=== PATIENT | female | born 1945 | race Caucasian/White ===

== ENCOUNTER → 2016-04-30 | Outpatient (CLI) | payer BC ==
[~2016-04-30] MED LIST: AMOX875T PO; AMX875 PO; ASCA500 PO; ASCO100061 PO; CALC600T9 PO; CHOL100010 PO; CYAN10005 PO; DPRSCR15 TD; ESTR0.3T PO; LEVO-14 PO; LEVO88TA PO; MEDR2.5T PO; MTR500 PO; OXYC-57 PO; PRED10TA PO; RANI300T2 PO; SPIR50TA2 PO; [UNRECOGNIZED DRUG - CODE] TD
--- NOTE | 2016-04-30 15:57 | DIAGNOSTIC IMAGING REPORT ---
RIGHT ANKLE MIN 3 VIEWS ROUTINE CLINICAL HISTORY: Right ankle pain status post trauma COMPARISON: None. DISCUSSION: No acute fractures or dislocations are visualized. 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 There is lateral soft tissue swelling. IMPRESSION: Degenerative changes. Soft tissue swelling. No acute fractures.. Electronically signed by: Gelacio Teresa M.D. 04/30/2016 3:56 PM Dictated Date/Time: 04/30/2016 3:55 PM
--- NOTE | 2016-04-30 15:58 | DIAGNOSTIC IMAGING REPORT ---
RIGHT FOOT MIN 3 VIEWS ROUTINE CLINICAL HISTORY: M79.661,M25.571,M79.671,Z85.3 Right trauma. Pain. COMPARISON: None. DISCUSSION: Oblique cortical fracture base proximal phalanx right fourth toe. No evidence of dislocation. Moderate soft tissue edema. IMPRESSION: Oblique cortical fracture base proximal phalanx fourth toe Electronically signed by: Philip Jaramillo M.D. 04/30/2016 3:57 PM Dictated Date/Time: 04/30/2016 3:55 PM
--- NOTE | 2016-04-30 16:21 | DIAGNOSTIC IMAGING REPORT ---
RIGHT LOWER EXTREMITY VENOUS DOPPLER HISTORY: Right leg swelling. COMPARISON STUDY: None. FINDINGS: There is normal compressibility, flow, and augmentation within the right lower extremity deep venous system. Right leg subcutaneous edema. IMPRESSION: No DVT within the right lower extremity Electronically signed by: Sonny Mann M.D. 04/30/2016 4:19 PM Dictated Date/Time: 04/30/2016 4:19 PM
== END | disposition home or self-care (01) ==
LOC: C.ULTR 14:47
PROVIDERS: ATTEND Family Medicine
DX: M79.661 Pain in right lower leg (principal); M25.571 Pain in right ankle and joints of right foot; M79.671 Pain in right foot; Z85.3 Personal history of malignant neoplasm of breast; M79.89 Other specified soft tissue disorders; S92.514A Nondisplaced fracture of proximal phalanx of right lesser toe(s), initial encounter for closed fracture; X58.XXXA Exposure to other specified factors, initial encounter

== ENCOUNTER → 2016-05-24 | Outpatient (CLI) | payer BC | END | disposition home or self-care (01) | LOC: C.RDSM 09:21 | PROVIDERS: ATTEND Family Medicine | DX: S92.911A Unspecified fracture of right toe(s), initial encounter for closed fracture (principal); X58.XXXA Exposure to other specified factors, initial encounter ==

== ENCOUNTER → 2016-05-30 | Outpatient (CLI) | payer BC ==
[2016-05-30 16:59] LABS: URINE APPEARANCE CLEAR (CLEAR); URINE BILIRUBIN NEG (NEG); URINE COLOR YELLOW; URINE NITRITE NEG (NEG); URINE SPECIFIC GRAVITY >= 1.030 (1.000-1.030); UROBILINOGEN NEG (NEG)
[2016-05-30 17:04] LABS: REVIEW REQ? NO
[2016-05-30 21:04] LABS: MANUAL MICROSCOPIC REQUIRED? NO
== END | disposition home or self-care (01) ==
LOC: C.LAB1850 15:45
PROVIDERS: ATTEND Internal Medicine
DX: R35.0 Frequency of micturition (principal)

== ENCOUNTER → 2016-06-13 | Outpatient (CLI) | payer BC ==
[~2016-06-13] MED LIST changes: +HYDR-5688 PO; +OMAL150S INJ
== END | disposition home or self-care (01) ==
LOC: C.RDSM 12:54
PROVIDERS: ATTEND Family Medicine
DX: S92.901A Unspecified fracture of right foot, initial encounter for closed fracture (principal); X58.XXXA Exposure to other specified factors, initial encounter

== ENCOUNTER → 2016-07-04 | Outpatient (CLI) | payer BC | END | disposition home or self-care (01) | LOC: C.RDSM 13:49 | PROVIDERS: ATTEND Family Medicine | DX: S92.909A Unspecified fracture of unspecified foot, initial encounter for closed fracture (principal); X58.XXXA Exposure to other specified factors, initial encounter ==

== ENCOUNTER → 2016-07-13 | Outpatient (CLI) | payer BC | END | disposition home or self-care (01) | LOC: C.LAB1850 11:56 | PROVIDERS: ATTEND Internal Medicine | DX: Z00.00 Encounter for general adult medical examination without abnormal findings (principal); Z11.59 Encounter for screening for other viral diseases; E03.9 Hypothyroidism, unspecified ==

== ENCOUNTER → 2016-07-25 | Outpatient (CLI) | payer BC ==
--- NOTE | 2016-07-25 16:44 | MAMMOGRAPHY REPORT ---
BILATERAL DIGITAL SCREENING MAMMOGRAM TOMOSYNTHESIS WITH CAD: 07/25/2016 CLINICAL HISTORY: Asymptomatic. Personal history of breast cancer. TECHNIQUE: Breast tomosynthesis in addition to standard 2D mammography was performed. Current study was also evaluated with a Computer Aided Detection (CAD) system. COMPARISON: Comparison is made to exams dated: 07/25/2015 mammogram, 07/21/2014 mammogram, 07/20/2013 mammogram, 07/18/2012 mammogram, 07/16/2011 mammogram, and 07/13/2010 mammogram - [facility] enter. BREAST COMPOSITION: There are scattered areas of fibroglandular density in both breasts. FINDINGS: There is expected architectural distortion and associated surgical clips in the 3:00 poste rior left breast, at the site of prior lumpectomy. An asymmetry in the upper outer left breast ante rior to the surgical site appears similar on all available prior mammograms dating back to 8, therefore likely benign. There are benign-appearing rodlike calcifications within the left breas t and a stable intramammary lymph node in the right upper outer quadrant. No new suspicious mass, a rchitectural distortion or cluster of microcalcifications is seen. IMPRESSION: ACR BI-RADS CATEGORY 1: NEGATIVE There is no mammographic evidence of malignancy. A 1 year screening mammogram is recommended. The p atient will receive written notification of the results. Approximately 10% of breast cancers are not detected with mammography. A negative mammographic repor t should not delay biopsy if a clinically suggestive mass is present. Kelsi Newman M.D. ay/:07/25/2016 15:07:57 Compensation Agent: Vidhya DIAZ(R)(Mariah), [facility] letter sent: Normal 1/2 BI-RADS Code: ACR BI-RADS Category 1: Negative
== END | disposition home or self-care (01) ==
LOC: C.MAMM 13:26
PROVIDERS: ATTEND Obstetrics & Gynecology
DX: Z12.31 Encounter for screening mammogram for malignant neoplasm of breast (principal); Z85.3 Personal history of malignant neoplasm of breast

== ENCOUNTER → 2016-07-30 | Outpatient (CLI) | payer BC | END | disposition home or self-care (01) | LOC: C.RDSM 15:01 | PROVIDERS: ATTEND Family Medicine | DX: T14.8 Other injury of unspecified body region (principal); X58.XXXA Exposure to other specified factors, initial encounter ==

== ENCOUNTER → 2016-08-21 | Outpatient (CLI) | payer BC ==
[2016-08-21 16:45] LABS: MANUAL MICROSCOPIC REQUIRED? NO; REVIEW REQ? YES; URINE APPEARANCE CLEAR (CLEAR); URINE BILIRUBIN NEG (NEG); URINE COLOR DK YELLOW; URINE EPITHELIAL CELL AUTO >30 /lpf (0-5); URINE NITRITE NEG (NEG); URINE PH 7.5 (4.5-7.5); URINE SPECIFIC GRAVITY 1.032 (1.000-1.030); UROBILINOGEN NEG (NEG)
[2016-08-21 16:47] LABS: SULFASALICYLIC ACID POS (NEG)
== END ==
LOC: C.LAB1850 14:15
PROVIDERS: ATTEND Internal Medicine
DX: N39.0 Urinary tract infection, site not specified (principal)

== ENCOUNTER → 2016-09-07 | Outpatient (CLI) | payer BC ==
[~2016-09-07] MED LIST changes: -HYDR-5688 PO; -OMAL150S INJ
[2016-09-07 14:27] LABS: HEMATOCRIT 40.7 % (37-47); MEAN CELL VOLUME 100.2 fL (80-100); MEAN CORPUSCULAR HEMOGLOBIN 33.5 pg (25-34); MEAN CORPUSCULAR HGB CONC 33.4 g/dl (32-36); MEAN PLATELET VOLUME 9.5 fL (7.4-10.4); PLATELET COUNT 331 K/uL (130-400); RED BLOOD COUNT 4.06 M/uL (4.2-5.4); WHITE BLOOD COUNT 6.38 K/uL (4.8-10.8)
[2016-09-07 14:52] LABS: ALT/SGPT 22 U/L (12-78); BLOOD UREA NITROGEN 13 mg/dl (7-18); BUN/CREATININE RATIO 13.2 (10-20); CALCIUM 9.4 mg/dl (8.5-10.1); CARBON DIOXIDE 29 mmol/L (21-32); CHLORIDE 107 mmol/L (98-107); CREATININE 0.96 mg/dl (0.60-1.20); GLUCOSE 101 mg/dl (70-99); POTASSIUM 3.8 mmol/L (3.5-5.1); SODIUM 141 mmol/L (136-145)
[2016-09-07 14:54] LABS: ALKALINE PHOSPHATASE 64 U/L (45-117); AST/SGOT 16 U/L (15-37)
== END | disposition home or self-care (01) ==
LOC: C.LABSPEC 13:51
PROVIDERS: ATTEND Internal Medicine
DX: K57.92 Diverticulitis of intestine, part unspecified, without perforation or abscess without bleeding (principal); Z79.2 Long term (current) use of antibiotics

== ENCOUNTER → 2016-09-12 | Outpatient (CLI) | payer BC ==
[~2016-09-12] MED LIST changes: +OPTIRAY 320 IV PRN
--- NOTE | 2016-09-12 13:36 | DIAGNOSTIC IMAGING REPORT ---
CT SCAN OF THE ABDOMEN AND PELVIS WITH IV CONTRAST CLINICAL HISTORY: Generalized abdominal pain. COMPARISON STUDY: Abdominal CT dated 02/25/2014. TECHNIQUE: Following the IV administration of 91 cc of Optiray 320, CT scan of the abdomen and pelvis is performed from the lung bases to the proximal femora. Images are reviewed in the axial, sagittal, and coronal planes. IV contrast was administered without complication. Automated dose control exposure was utilized. CT DOSE: 407.57 mGy.cm FINDINGS: Lung bases: The heart is normal in size and without pericardial effusion. The lung bases are clear. Liver: The contrast-enhanced liver is normal in size, contour, and attenuation. There is no intrahepatic biliary ductal dilatation. The hepatic veins and portal veins are patent. Gallbladder: Unremarkable. Spleen: Normal in size and attenuation. Pancreas: Unremarkable. Adrenal glands: Unremarkable. Kidneys: The contrast enhanced kidneys are normal in size and without hydronephrosis. The kidneys enhance symmetrically. Abdominal vasculature: The abdominal aorta is normal in course and caliber noting moderate to advanced atherosclerotic calcification. Bowel: No bowel obstruction is identified. There is moderate colonic diverticulosis. There is mild wall thickening with faint pericolonic stranding and trace fluid seen involving the sigmoid colon in the mid pelvis. This likely represents mild acute diverticulitis. No evidence of abscess is seen. The appendix is well-visualized and normal. Peritoneum: There is no intraperitoneal free air or abdominal ascites. Lymphadenopathy: None. Pelvic viscera: The bladder, uterus, and adnexa are normal as visualized. Skeletal structures: The skeletal structures are osteopenic. Mild to moderate lumbosacral spondylosis is observed. No lytic or blastic lesions are seen. IMPRESSION: There is moderate colonic diverticulosis with evidence of mild acute sigmoid diverticulitis. No intraperitoneal free air is identified and there is no evidence of diverticular abscess. Electronically signed by: Mariusz Kaufman M.D. 09/12/2016 1:35 PM Dictated Date/Time: 09/12/2016 1:27 PM
== END | disposition home or self-care (01) ==
LOC: C.CTS 12:12
PROVIDERS: ATTEND Internal Medicine
DX: K57.32 Diverticulitis of large intestine without perforation or abscess without bleeding (principal)

== ENCOUNTER → 2016-09-17 | Outpatient (CLI) | payer BC ==
[~2016-09-17] MED LIST changes: -OPTIRAY 320 IV PRN
[2016-09-17 14:48] LABS: HEMATOCRIT 43.7 % (37-47); MEAN CELL VOLUME 100.9 fL (80-100); MEAN CORPUSCULAR HEMOGLOBIN 33.5 pg (25-34); MEAN CORPUSCULAR HGB CONC 33.2 g/dl (32-36); MEAN PLATELET VOLUME 9.6 fL (7.4-10.4); PLATELET COUNT 248 K/uL (130-400); RED BLOOD COUNT 4.33 M/uL (4.2-5.4); WHITE BLOOD COUNT 6.51 K/uL (4.8-10.8)
[2016-09-17 15:16] LABS: ALT/SGPT 20 U/L (12-78); BLOOD UREA NITROGEN 15 mg/dl (7-18); BUN/CREATININE RATIO 15.4 (10-20); CALCIUM 9.3 mg/dl (8.5-10.1); CARBON DIOXIDE 27 mmol/L (21-32); CHLORIDE 107 mmol/L (98-107); CREATININE 0.94 mg/dl (0.60-1.20); GLUCOSE 131 mg/dl (70-99); POTASSIUM 3.9 mmol/L (3.5-5.1); SODIUM 143 mmol/L (136-145)
[2016-09-17 15:18] LABS: ALB/GLOB RATIO 1.1 (0.9-2); ALKALINE PHOSPHATASE 83 U/L (45-117); AST/SGOT 16 U/L (15-37)
== END | disposition home or self-care (01) ==
LOC: C.LAB1850 13:37
PROVIDERS: ATTEND Internal Medicine
DX: K57.92 Diverticulitis of intestine, part unspecified, without perforation or abscess without bleeding (principal)

== ENCOUNTER → 2016-09-24 | Outpatient (CLI) | payer BC ==
[2016-09-24 17:17] LABS: URINE APPEARANCE CLEAR (CLEAR); URINE BILIRUBIN NEG (NEG); URINE COLOR DK YELLOW; URINE EPITHELIAL CELL AUTO >30 /lpf (0-5); URINE NITRITE NEG (NEG); URINE SPECIFIC GRAVITY 1.035 (1.000-1.030); UROBILINOGEN NEG (NEG)
[2016-09-24 17:30] LABS: MANUAL MICROSCOPIC REQUIRED? NO; REVIEW REQ? YES
[2016-09-24 18:24] LABS: URINE MUCUS PRESENT (NONE PRSENT)
== END | disposition home or self-care (01) ==
LOC: C.LAB1850 15:12
PROVIDERS: ATTEND Internal Medicine
DX: R30.9 Painful micturition, unspecified (principal)

== ENCOUNTER 2016-11-13 10:25 | Inpatient (IN) | payer BC, OTHER ==
[~2016-11-13] VITALS: Ht 170.2 cm; Wt 73.3 kg
[~2016-11-13 10:25] MED LIST changes: -AMOX875T PO; -AMX875 PO; -ASCO100061 PO; -CHOL100010 PO; -DPRSCR15 TD; -ESTR0.3T PO; -LEVO-14 PO; -LEVO88TA PO; -MEDR2.5T PO; -MTR500 PO; -OXYC-57 PO; -PRED10TA PO; -RANI300T2 PO; -SPIR50TA2 PO; -[UNRECOGNIZED DRUG - CODE] TD
[2016-11-13 10:27] VITALS: Ht 170.2 cm; Wt 73.3 kg
[2016-11-13] MEDS ORDERED: AMX875 PO (10:50)
[2016-11-13 11:04] LABS: BASO % 0.2 %; BASO ABS # 0.02 K/uL (0-0.2); COMPLETE YES; EOS % 0.4 %; HEMATOCRIT 44.9 % (37-47); IG% 0.2 %; LYMPH % 7.7 %; LYMPH ABS # 0.95 K/uL (1.2-3.4); MEAN CELL VOLUME 99.8 fL (80-100); MEAN CORPUSCULAR HEMOGLOBIN 33.1 pg (25-34); MEAN CORPUSCULAR HGB CONC 33.2 g/dl (32-36); MEAN PLATELET VOLUME 9.8 fL (7.4-10.4); MONO % 5.7 %; NEUT % 85.8 %; PLATELET COUNT 187 K/uL (130-400); WHITE BLOOD COUNT 12.26 K/uL (4.8-10.8)
[2016-11-13] MEDS ORDERED: AMOX875T PO (11:06)
[2016-11-13] MEDS ORDERED: LEVO88TA PO (11:06)
[2016-11-13] MEDS ORDERED: MoRPHine SULFATE 10 MG/ML CARP/VIAL IV STA (11:15)
[2016-11-13] MEDS ORDERED: SODIUM CHLORIDE 0.9% 500ML 500 ML IV STA (11:15)
[2016-11-13] MEDS ORDERED: ONDANSETRON INJ 2 MG/ML 2 ML VIAL IV STA (11:15)
[2016-11-13 11:16] LABS: BUN/CREATININE RATIO 13.4 (10-20); CALCIUM 8.9 mg/dl (8.5-10.1); CREATININE 0.92 mg/dl (0.60-1.20); POTASSIUM 3.5 mmol/L (3.5-5.1)
[2016-11-13] MEDS ORDERED: OPTIRAY 320 IV PRN (11:30)
[2016-11-13] MEDS ORDERED: MoRPHine SULFATE 2 MG/ML CARP ONE (11:38)
[2016-11-13] MEDS ORDERED: MoRPHine SULFATE 4 MG/ML 1 ML CARP\\VIAL ONE (11:38)
[2016-11-13] MEDS ORDERED: PIPERACILLIN/TAZOBACTAM 4.5 GM/100ML D5W IV STA (12:53)
--- NOTE | 2016-11-13 13:01 | DIAGNOSTIC IMAGING REPORT ---
ABDOMEN AND PELVIS CT WITH IV CONTRAST CT DOSE: 535.17 mGycm HISTORY: lower abd pain w/ hxt divertic and abscess TECHNIQUE: Multiaxial CT images of the abdomen and pelvis were performed following the use of intravenous contrast. A dose lowering technique was utilized adhering to the principles of ALARA. COMPARISON STUDY: Abdomen and pelvis CT 09/12/2016. FINDINGS: Mild thickening of the sigmoid colon with surrounding pericolonic inflammatory change and a punctate focus of extraluminal gas best seen on image 301. Findings are consistent with acute diverticulitis with a tiny focus of microperforation. No loculated fluid collections at this time to suggest an abscess. A segment of thickened small bowel seen within the deep pelvis inferior to the diverticulitis. This is likely reactive. This results in focal areas of narrowing and mild dilatation of the proximal small bowel. This may represent a low-grade partial small bowel obstruction. Mild thickening and fat stranding within the bladder wall. The uterus is unremarkable. Fluid-filled proximal colon. Normal appendix. Stable 2.4 cm hypodense presacral focus. This is of doubtful clinical significance. There are 2 nodular densities at the base of the right lower lobe with the largest measuring 6 mm best in image 19. These remain stable. The liver, gallbladder, kidneys, spleen, and adrenal glands are unremarkable. The pancreas enhances normally. IMPRESSION: 1. Progressive inflammatory change within the pelvis surrounding the sigmoid colon consistent with acute diverticulitis. There is a punctate focus of extraluminal gas consistent with microperforation. No evidence for abscess at this time. 2. Short segment of thickened small bowel within the deep pelvis inferior to the diverticulitis. This is likely reactive. This results in mild narrowing of the bowel and a probable low-grade partial small bowel obstruction. 3. Mild thickening and inflammatory change within the bladder. Recommend correlation with urinalysis to exclude a cystitis. This may also be reactive. Electronically signed by: Sonny Mann M.D. 11/13/2016 12:22 PM Dictated Date/Time: 11/13/2016 12:07 PM
--- NOTE | 2016-11-13 13:49 | Surgery Consultation ---
Consultation Date of Consultation: Nov 13, 2016. Attending Physician: Reason for Consultation: diverticulitis History of Present Illness 71 y/o with what is now her 3rd bout of diverticulitis in [address] Dorantes previously and they opted against elective surgery. she began with abdominal pain last night which worsened into this morning. Family History Hypertension Kidney disease Social History Smoking Status: Former Smoker Drug Use: none Marital Status: Housing Status: lives with family Occupation Status: retired Allergies Coded Allergies: NO KNOWN DRUG ALLERGIES (Verified Allergy, Unknown, ., 10/11/16) Nickel (Verified Allergy, Unknown, CAME UP ON ALLERGY TEST, 10/11/16) Home Medications Scheduled Amoxicillin & Pot Clavulanate (Augmentin 875-125 mg), 1 TAB PO Q12 Ascorbic Acid (Vitamin C), 1 TAB PO QAM Calcium Carbonate-Vitamin D (Calcium + D), 1 TAB PO QAM Cyanocobalamin (Vitamin B-12), 1,000 MCG PO QAM Levothyroxine Sodium (Synthroid), 88 MCG PO DAILY Current Inpatient Medications Current Inpatient Medications Medications (Trade) Dose Ordered Sig/Ric Route Start Time Stop Time Status Last Admin Dose Admin Ioversol (Optiray 320) 100 ml UD PRN IV 11/13/16 11:30 11/17/16 11:29 Review of Systems Abdomen: + pain Physical Exam Date Time Temp Pulse Resp B/P (MAP) Pulse Ox O2 Delivery O2 Flow Rate FiO2 11/13/16 12:34 88 11/13/16 12:22 89 20 139/85 97 Room Air 11/13/16 10:27 36.5 97 16 147/93 92 Room Air General Appearance: no apparent distress Head: normocephalic, atraumatic Eyes: normal inspection, EOMI, sclerae normal ENT: hearing grossly normal Neck: supple, no JVD Respiratory/Chest: no respiratory distress, no accessory muscle use Abdomen/GI: soft, + pertinent finding (+suprapubic > LLQ ttp. +guarding. ) Neurologic/Psych: alert, oriented x 3 Skin: normal color, warm/dry Laboratory Results Last 24 Hours Test 11/13/16 10:50 White Blood Count 12.26 K/uL Red Blood Count 4.50 M/uL Hemoglobin 14.9 g/dL Hematocrit 44.9 % Mean Corpuscular Volume 99.8 fL Mean Corpuscular Hemoglobin 33.1 pg Mean Corpuscular Hemoglobin Concent 33.2 g/dl Platelet Count 187 K/uL Mean Platelet Volume 9.8 fL Neutrophils (%) (Auto) 85.8 % Lymphocytes (%) (Auto) 7.7 % Monocytes (%) (Auto) 5.7 % Eosinophils (%) (Auto) 0.4 % Basophils (%) (Auto) 0.2 % Neutrophils # (Auto) 10.51 K/uL Lymphocytes # (Auto) 0.95 K/uL Monocytes # (Auto) 0.70 K/uL Eosinophils # (Auto) 0.05 K/uL Basophils # (Auto) 0.02 K/uL RDW Standard Deviation 47.3 fL RDW Coefficient of Variation 13.0 % Immature Granulocyte % (Auto) 0.2 % Immature Granulocyte # (Auto) 0.03 K/uL Sodium Level 138 mmol/L Potassium Level 3.5 mmol/L Chloride Level 105 mmol/L Carbon Dioxide Level 28 mmol/L Anion Gap 5.0 mmol/L Blood Urea Nitrogen 12 mg/dl Creatinine 0.92 mg/dl Est Creatinine Clear Calc Drug Dose 54.6 ml/min Estimated GFR () 72.6 Estimated GFR (Non- 62.6 BUN/Creatinine Ratio 13.4 Random Glucose 114 mg/dl Calcium Level 8.9 mg/dl Total Bilirubin 1.2 mg/dl Direct Bilirubin 0.3 mg/dl Aspartate Amino Transf (AST/SGOT) 8 U/L Alanine Aminotransferase (ALT/SGPT) 15 U/L Alkaline Phosphatase 68 U/L Total Protein 7.0 gm/dl Albumin 3.2 gm/dl Lipase 60 U/L Assessment & Plan acute diverticulitis with microperforation . recurrent. will need admitted. NPO/ice chips/IV antibiotics was schedule for colonoscopy in 1-[address] Nolasco. will need to delay that may want to reconsider elective sigmoid colon resection once she is better will follow along closely for improvement
[2016-11-13] MEDS ORDERED: ALUMINUM/MAGNESIUM/SIMETH (MAALOX MAX) 30 ML UDC PO PRN (14:00)
[2016-11-13] MEDS ORDERED: MAGNESIUM HYDROXIDE SUSP 30 ML UDC PO PRN (14:00)
[2016-11-13] MEDS ORDERED: ONDANSETRON INJ 2 MG/ML 2 ML VIAL IV PRN (14:00)
--- NOTE | 2016-11-13 14:14 | History and Physical ---
History & Physical Date & Time of Service: Nov 13, 2016 at 13:59 Chief Complaint: Severe Abd. Pain-Diverticulitis Primary Care Physician: Zak Darnell M.D. History of Present Illness Source: patient, family ( at bedside), clinic records, hospital records Patient is a pleasant 71 y/o female, with PMHx of hypothyroidism, mild cognitive impairment, L breast cancer s/p lumpectomy, and h/o diverticular disease w/ acute diverticulitis x2, who presented to the ED because of abdominal pain x1 day. Mid/LLQ abdominal pain started yesterday afternoon around 1400. She had one episode of nausea and vomiting last evening. She has not eating anything today. This is her third episode of diverticulitis. She has discussed colectomy with [facility] surgeon in September, but elected for medical management w/ high fiber diet. She was given Amoxicillin to take at first sign of abdominal pain- she took two yesterday and one today. She called surgeon today and was instructed to come to ED. She has a colonoscopy scheduled for w/ Dr. Nolasco. Patient denies any fever, chills, sweats, lightheadedness, dizziness, vision changes, CP, palpitations, edema, SOB, wheezing, cough, diarrhea, urinary symptoms, melena, numbness/tingling, weakness , muscle/joint pain, anxiety/depression, active bleeding, or new skin discoloration/changes. Past Medical/Surgical History Medical Problems: L sided breast cancer s/p lumpectomy hypothyroidism mild cognitive impairment diverticular disease w/ acute diverticulitis Surgical History: s/p breast lumpectomy bilateral cataract surgery Family History Hypertension Kidney disease Social History Smoking Status: Former Smoker Alcohol Use: occasionally Drug Use: none Marital Status: Housing status: lives with family Occupational Status: retired Immunizations History of Influenza Vaccine: Yes Influenza Vaccine Date: Jan 26, 2005 History of Tetanus Vaccine?: Unknown History of Pneumococcal: No History of Hepatitis B Vaccine: Unknown Multi-Drug Resistant Organisms History of MDRO: No Allergies Coded Allergies: NO KNOWN DRUG ALLERGIES (Verified Allergy, Unknown, ., 10/11/16) Nickel (Verified Allergy, Unknown, CAME UP ON ALLERGY TEST, 10/11/16) Home Medications Scheduled Amoxicillin & Pot Clavulanate (Augmentin 875-125 mg), 1 TAB PO Q12 Ascorbic Acid (Vitamin C), 1 TAB PO QAM Calcium Carbonate-Vitamin D (Calcium + D), 1 TAB PO QAM Cyanocobalamin (Vitamin B-12), 1,000 MCG PO QAM Levothyroxine Sodium (Synthroid), 88 MCG PO DAILY Physical Exam Vital Signs Date Time Temp Pulse Resp B/P (MAP) Pulse Ox O2 Delivery O2 Flow Rate FiO2 11/13/16 13:45 91 124/80 96 Room Air 11/13/16 12:34 88 11/13/16 12:22 89 20 139/85 97 Room Air 11/13/16 10:27 36.5 97 16 147/93 92 Room Air General Appearance: no apparent distress Head: normocephalic, atraumatic Eyes: normal inspection, PERRL ENT: hearing grossly normal Neck: supple Respiratory/Chest: lungs clear, no respiratory distress, no accessory muscle use Cardiovascular: regular rate, rhythm Abdomen/GI: normal bowel sounds, soft, + tenderness (ttp of LLQ/mid-epigastric region ) Back: normal inspection Extremities/Musculoskelatal: no calf tenderness, + swelling (+non-pitting edema of bilateral lower extremities, R>L) Neurologic/Psych: alert, normal mood/affect, oriented x 3 Skin: normal color, warm/dry, no rash Diagnostics Laboratory Results Results Past 24 Hours Test 11/13/16 10:50 11/13/16 10:57 Range/Units White Blood Count 12.26 4.8-10.8 K/uL Red Blood Count 4.50 4.2-5.4 M/uL Hemoglobin 14.9 12.0-16.0 g/dL Hematocrit 44.9 37-47 % Mean Corpuscular Volume 99.8 80-100 fL Mean Corpuscular Hemoglobin 33.1 25-34 pg Mean Corpuscular Hemoglobin Concent 33.2 32-36 g/dl Platelet Count 187 130-400 K/uL Mean Platelet Volume 9.8 7.4-10.4 fL Neutrophils (%) (Auto) 85.8 % Lymphocytes (%) (Auto) 7.7 % Monocytes (%) (Auto) 5.7 % Eosinophils (%) (Auto) 0.4 % Basophils (%) (Auto) 0.2 % Neutrophils # (Auto) 10.51 1.4-6.5 K/uL Lymphocytes # (Auto) 0.95 1.2-3.4 K/uL Monocytes # (Auto) 0.70 0.11-0.59 K/uL Eosinophils # (Auto) 0.05 0-0.5 K/uL Basophils # (Auto) 0.02 0-0.2 K/uL RDW Standard Deviation 47.3 36.4-46.3 fL RDW Coefficient of Variation 13.0 11.5-14.5 % Immature Granulocyte % (Auto) 0.2 % Immature Granulocyte # (Auto) 0.03 0.00-0.02 K/uL Sodium Level 138 136-145 mmol/L Potassium Level 3.5 3.5-5.1 mmol/L Chloride Level 105 98-107 mmol/L Carbon Dioxide Level 28 21-32 mmol/L Anion Gap 5.0 3-11 mmol/L Blood Urea Nitrogen 12 7-18 mg/dl Creatinine 0.92 0.60-1.20 mg/dl Est Creatinine Clear Calc Drug Dose 54.6 ml/min Estimated GFR () 72.6 Estimated GFR (Non- 62.6 BUN/Creatinine Ratio 13.4 10-20 Random Glucose 114 70-99 mg/dl Calcium Level 8.9 8.5-10.1 mg/dl Total Bilirubin 1.2 0.2-1 mg/dl Direct Bilirubin 0.3 0-0.2 mg/dl Aspartate Amino Transf (AST/SGOT) 8 15-37 U/L Alanine Aminotransferase (ALT/SGPT) 15 12-78 U/L Alkaline Phosphatase 68 45-117 U/L Total Protein 7.0 6.4-8.2 gm/dl Albumin 3.2 3.4-5.0 gm/dl Lipase 60 73-393 U/L Diagnostic Radiology ABDOMEN AND PELVIS CT WITH IV CONTRAST CT DOSE: 535.17 mGycm HISTORY: lower abd pain w/ hxt divertic and abscess TECHNIQUE: Multiaxial CT images of the abdomen and pelvis were performed following the use of intravenous contrast. A dose lowering technique was utilized adhering to the principles of ALARA. COMPARISON STUDY: Abdomen and pelvis CT 09/12/2016. FINDINGS: Mild thickening of the sigmoid colon with surrounding pericolonic inflammatory change and a punctate focus of extraluminal gas best seen on image 301. Findings are consistent with acute diverticulitis with a tiny focus of microperforation. No loculated fluid collections at this time to suggest an abscess. A segment of thickened small bowel seen within the deep pelvis inferior to the diverticulitis. This is likely reactive. This results in focal areas of narrowing and mild dilatation of the proximal small bowel. This may represent a low-grade partial small bowel obstruction. Mild thickening and fat stranding within the bladder wall. The uterus is unremarkable. Fluid-filled proximal colon. Normal appendix. Stable 2.4 cm hypodense presacral focus. This is of doubtful clinical significance. There are 2 nodular densities at the base of the right lower lobe with the largest measuring 6 mm best in image 19. These remain stable. The liver, gallbladder, kidneys, spleen, and adrenal glands are unremarkable. The pancreas enhances normally. IMPRESSION: 1. Progressive inflammatory change within the pelvis surrounding the sigmoid colon consistent with acute diverticulitis. There is a punctate focus of extraluminal gas consistent with microperforation. No evidence for abscess at this time. 2. Short segment of thickened small bowel within the deep pelvis inferior to the diverticulitis. This is likely reactive. This results in mild narrowing of the bowel and a probable low-grade partial small bowel obstruction. 3. Mild thickening and inflammatory change within the bladder. Recommend correlation with urinalysis to exclude a cystitis. This may also be reactive. Electronically signed by: Sonny Mann M.D. 11/13/2016 12:22 PM Dictated Date/Time: 11/13/2016 12:07 PM The status of this report is Signed. Draft = Not yet reviewed or approved by Radiologist. Signed = Reviewed and approved by Radiologist. Impression Assessment and Plan Patient is a pleasant 71 y/o female, with PMHx of hypothyroidism, mild cognitive impairment, and h/o diverticular disease w/ acute diverticulitis x2, who presented to the ED because of abdominal pain x1 day. Acute diverticulitis of sigmoid colon w/ microperforation: - Admit to med/surg - IV Zosyn - NPO- advance per surgical recommendations - IV Morphine PRN for pain management - IV NS @ 100 ml/hr while NPO - Consult General Surgery, appreciate recommendations- case discussed w/ Dr. Sosa ?Acute cystitis on CT: UA pending, IV antibiotic coverage as above Hypothyroidism: Continue Synthroid 88 mcg daily Bilateral lower extremity lymphedema: Aldactone 50 mg daily PRN swelling DVT prophylaxis: TERESO/SCDs Code Status: LEVEL I, FULL Dispo: From home, lives w/ - no discharge needs anticipated - Patient/family has scheduled vacation to [place] on 11/16- hoping for discharge prior to Saturday Resident Physician Supervision Note: I was present with Elina Cole during the history and exam. I discussed the case with the resident and agree with the findings and plan as documented in the note. Any exceptions or clarifications are listed here: 71 y/o F Hx Diverticulitis 2 x in 2017 - presenting with abdominal pain - recurrence confirmed - microperf. present OE AAO x 3 S1,2 R CTAB Mild LLQ tenderness, BS+ P: Surgery consulted NPO - Zosyn - may need elective surgery due to recurrence Cont Synthroid Above discussed with pt/, PA and ER attending Documented By: Eric Khanna Level of Care Med/Surg Resuscitation Status FULL RESUSCITATION VTE Prophylaxis VTE Risk Assessment Done? Y/N: Yes Risk Level: Moderate Given or contraindicated: T.E.D. Stockings, SCD's, Contraindicated
[2016-11-13 14:21] LABS: URINE APPEARANCE CLEAR (CLEAR); URINE BILIRUBIN NEG (NEG); URINE COLOR YELLOW; URINE NITRITE NEG (NEG); URINE SPECIFIC GRAVITY > 1.045 (1.000-1.030); UROBILINOGEN NEG (NEG); ZZUR CULT IF INDIC CLEAN CATCH NO
[2016-11-13] MEDS ORDERED: PIPERACILL/TAZOBAC CONSULT ACTIVE PRN (14:30)
[2016-11-13 14:32] LABS: MANUAL MICROSCOPIC REQUIRED? NO; REVIEW REQ? NO
[2016-11-13] MEDS ORDERED: POLYETHYLENE (MIRALAX) 17 GM PACK PO PRN (14:45)
[2016-11-13 14:55] VITALS: BP 152/82; PULSE 80; TEMP 37; O2SAT 97
[2016-11-13] MEDS: SODIUM CHLORIDE 0.9% 1000ML 1,000 ML IV SCH (15:00)
[2016-11-13] MEDS: MoRPHine SULFATE 2 MG/ML CARP IV PRN ×3 (15:17→21:39)
--- NOTE | 2016-11-13 16:51 | EMERGENCY ROOM VISIT NOTE ---
History Report prepared by Russell: aRdha Baron Under the Supervision of: Dr. Winston Vergara D.O. First contact with patient: 10:57 Chief Complaint: ABDOMINAL PAIN Stated Complaint: SEVERE ABD. PAIN-DIVERTICULITIS Nursing Triage Summary: Patient c/o mid lower abd pain, hx diverticulitis Denies N/V/D today but vomited yesterday. History of Present Illness The patient is a 71 year old female who presents to the Emergency Room with complaints of worsening mid-abdominal pain since yesterday. She describes her pain as a sharp and rates her current pain as a 7/10 in severity. She denies any current nausea or vomiting, but did have one episode of vomiting yesterday. The patient was recently diagnosed with diverticulitis in August. She had an abscess at that time and was on IV and oral antibiotics. She was given the option of surgery or medications, and she chose to take the medications. Her symptoms eventually resolved. The patient states that her current pain is in the same area as it was before with her previous diverticulitis. It feels just like her previous diverticulitis. Pt denies headache, change in vision, fevers, chest pain, shortness of breath, diarrhea, pain with urination, and melena. She had a normal bowel movement this morning. Source of History: patient Onset: yesterday Position: abdomen Symptom Intensity: 7/10 Quality: sharp Timing: worsening Associated Symptoms: No fevers, No headache, No chest pain, No SOB, No nausea, No vomiting, No melena, No diarrhea, No urinary symptoms Review of Systems See HPI for pertinent positives & negatives. A total of 10 systems reviewed and were otherwise negative. Past Medical & Surgical Medical Problems: (1) Acute diverticulitis (2) Breast cancer in situ Family History Hypertension Kidney disease Social History Smoking Status: Former Smoker Alcohol Use: none Drug Use: none Marital Status: Housing Status: lives with family Occupation Status: retired Current/Historical Medications Scheduled Amoxicillin & Pot Clavulanate (Augmentin 875-125 mg), 1 TAB PO Q12 Ascorbic Acid (Vitamin C), 1 TAB PO QAM Calcium Carbonate-Vitamin D (Calcium + D), 1 TAB PO QAM Cyanocobalamin (Vitamin B-12), 1,000 MCG PO QAM Levothyroxine Sodium (Synthroid), 88 MCG PO DAILY Allergies Coded Allergies: NO KNOWN DRUG ALLERGIES (Verified Allergy, Unknown, ., 10/11/16) Nickel (Verified Allergy, Unknown, CAME UP ON ALLERGY TEST, 10/11/16) Physical Exam Vital Signs Date Time Temp Pulse Resp B/P (MAP) Pulse Ox O2 Delivery O2 Flow Rate FiO2 11/13/16 13:45 91 124/80 96 Room Air 11/13/16 12:34 88 11/13/16 12:22 89 20 139/85 97 Room Air 11/13/16 10:27 36.5 97 16 147/93 92 Room Air Physical Exam GENERAL: alert, sitting up in bed, minimal distress, holding lower abdomen, well nourished, non-toxic EYE EXAM: normal conjunctiva OROPHARYNX: no exudate, no erythema, lips, buccal mucosa, and tongue normal and mucous membranes are moist NECK: supple, no nuchal rigidity, no adenopathy, non-tender LUNGS: Clear to auscultation. Normal chest wall mechanics HEART: no murmurs, S1 normal and S2 normal ABDOMEN: abdomen soft, tender to palpation in infraumbilical region, normo- active bowel sounds, no masses, no rebound or guarding. BACK: Back is symmetrical on inspection and there is no deformity, no midline tenderness, no CVA tenderness. SKIN: no rashes and no bruising UPPER EXTREMITIES: upper extremities are grossly normal. LOWER EXTREMITIES: No pitting edema. NEURO EXAM: Normal sensorium, cranial nerves II-XII grossly intact, normal speech, no gross weakness of arms, no gross weakness of legs. Medical Decision & Procedures ER Provider Diagnostic Interpretation: Radiology results as stated below per my review and the radiologist's interpretation: ABDOMEN AND PELVIS CT WITH IV CONTRAST CT DOSE: 535.17 mGycm HISTORY: lower abd pain w/ hxt divertic and abscess TECHNIQUE: Multiaxial CT images of the abdomen and pelvis were performed following the use of intravenous contrast. A dose lowering technique was utilized adhering to the principles of ALARA. COMPARISON STUDY: Abdomen and pelvis CT 09/12/2016. FINDINGS: Mild thickening of the sigmoid colon with surrounding pericolonic inflammatory change and a punctate focus of extraluminal gas best seen on image 301. Findings are consistent with acute diverticulitis with a tiny focus of microperforation. No loculated fluid collections at this time to suggest an abscess. A segment of thickened small bowel seen within the deep pelvis inferior to the diverticulitis. This is likely reactive. This results in focal areas of narrowing and mild dilatation of the proximal small bowel. This may represent a low-grade partial small bowel obstruction. Mild thickening and fat stranding within the bladder wall. The uterus is unremarkable. Fluid-filled proximal colon. Normal appendix. Stable 2.4 cm hypodense presacral focus. This is of doubtful clinical significance. There are 2 nodular densities at the base of the right lower lobe with the largest measuring 6 mm best in image 19. These remain stable. The liver, gallbladder, kidneys, spleen, and adrenal glands are unremarkable. The pancreas enhances normally. IMPRESSION: 1. Progressive inflammatory change within the pelvis surrounding the sigmoid colon consistent with acute diverticulitis. There is a punctate focus of extraluminal gas consistent with microperforation. No evidence for abscess at this time. 2. Short segment of thickened small bowel within the deep pelvis inferior to the diverticulitis. This is likely reactive. This results in mild narrowing of the bowel and a probable low-grade partial small bowel obstruction. 3. Mild thickening and inflammatory change within the bladder. Recommend correlation with urinalysis to exclude a cystitis. This may also be reactive. Electronically signed by: Sonny Mann M.D. 11/13/2016 12:22 PM Dictated Date/Time: 11/13/2016 12:07 PM Laboratory Results 11/13/16 10:50 Red Blood Count 4.50, Mean Corpuscular Volume 99.8, Mean Corpuscular Hemoglobin 33.1, Mean Corpuscular Hemoglobin Concent 33.2, Mean Platelet Volume 9.8, Neutrophils (%) (Auto) 85.8, Lymphocytes (%) (Auto) 7.7, Monocytes (%) (Auto) 5.7, Eosinophils (%) (Auto) 0.4, Basophils (%) (Auto) 0.2, Neutrophils # (Auto) 10.51, Lymphocytes # (Auto) 0.95, Monocytes # (Auto) 0.70, Eosinophils # (Auto) 0.05, Basophils # (Auto) 0.02 11/13/16 10:50 Test 11/13/16 10:50 11/13/16 13:30 White Blood Count 12.26 K/uL (4.8-10.8) Red Blood Count 4.50 M/uL (4.2-5.4) Hemoglobin 14.9 g/dL (12.0-16.0) Hematocrit 44.9 % (37-47) Mean Corpuscular Volume 99.8 fL (80-100) Mean Corpuscular Hemoglobin 33.1 pg (25-34) Mean Corpuscular Hemoglobin Concent 33.2 g/dl (32-36) Platelet Count 187 K/uL (130-400) Mean Platelet Volume 9.8 fL (7.4-10.4) Neutrophils (%) (Auto) 85.8 % Lymphocytes (%) (Auto) 7.7 % Monocytes (%) (Auto) 5.7 % Eosinophils (%) (Auto) 0.4 % Basophils (%) (Auto) 0.2 % Neutrophils # (Auto) 10.51 K/uL (1.4-6.5) Lymphocytes # (Auto) 0.95 K/uL (1.2-3.4) Monocytes # (Auto) 0.70 K/uL (0.11-0.59) Eosinophils # (Auto) 0.05 K/uL (0-0.5) Basophils # (Auto) 0.02 K/uL (0-0.2) RDW Standard Deviation 47.3 fL (36.4-46.3) RDW Coefficient of Variation 13.0 % (11.5-14.5) Immature Granulocyte % (Auto) 0.2 % Immature Granulocyte # (Auto) 0.03 K/uL (0.00-0.02) Anion Gap 5.0 mmol/L (3-11) Est Creatinine Clear Calc Drug Dose 54.6 ml/min Estimated GFR () 72.6 Estimated GFR (Non- 62.6 BUN/Creatinine Ratio 13.4 (10-20) Calcium Level 8.9 mg/dl (8.5-10.1) Total Bilirubin 1.2 mg/dl (0.2-1) Direct Bilirubin 0.3 mg/dl (0-0.2) Aspartate Amino Transf (AST/SGOT) 8 U/L (15-37) Alanine Aminotransferase (ALT/SGPT) 15 U/L (12-78) Alkaline Phosphatase 68 U/L (45-117) Total Protein 7.0 gm/dl (6.4-8.2) Albumin 3.2 gm/dl (3.4-5.0) Lipase 60 U/L (73-393) Urine Color YELLOW Urine Appearance CLEAR (CLEAR) Urine pH 7.0 (4.5-7.5) Urine Specific [place] > 1.045 (1.000-1.030) Urine Protein TRACE (NEG) Urine Glucose (UA) NEG (NEG) Urine Ketones NEG (NEG) Urine Occult Blood NEG (NEG) Urine Nitrite NEG (NEG) Urine Bilirubin NEG (NEG) Urine Urobilinogen NEG (NEG) Urine Leukocyte Esterase NEG (NEG) Urine WBC (Auto) 1-5 /hpf (0-5) Urine RBC (Auto) 0-4 /hpf (0-4) Urine Hyaline Casts (Auto) 1-5 /lpf (0-5) Urine Epithelial Cells (Auto) 10-20 /lpf (0-5) Urine Bacteria (Auto) NEG (NEG) Laboratory results per my review. Medications Administered Medications (Trade) Dose Ordered Sig/Ric Route Start Time Stop Time Status Last Admin Dose Admin Sodium Chloride 500 ml @ 999 mls/hr Q31M STAT IV 11/13/16 11:15 11/13/16 11:45 DC 11/13/16 11:43 999 MLS/HR Ondansetron HCl (Zofran Inj) 4 mg NOW STAT IV 11/13/16 11:15 11/13/16 11:17 DC 11/13/16 11:43 4 MG Morphine Sulfate (MoRPHine SULFATE INJ) 4 mg STK-MED ONCE .ROUTE 11/13/16 11:38 11/13/16 11:39 DC 11/13/16 11:43 4 MG Morphine Sulfate (MoRPHine SULFATE INJ) 2 mg STK-MED ONCE .ROUTE 11/13/16 11:38 11/13/16 11:39 DC 11/13/16 11:43 2 MG Piperacillin Sod/ Tazobactam Sod (Zosyn Iv) 4.5 gm NOW STAT IV 11/13/16 12:53 11/13/16 12:55 DC 11/13/16 13:25 4.5 GM ED Course ED COURSE: Vital signs were reviewed and showed hypertensive. The patients medical record was reviewed The above diagnostic studies were performed and reviewed. ED treatments and interventions as stated above. 1102: The patient was evaluated in room B9. A complete history and physical examination was performed. 1115: Morphine sulfate 6 mg IV, Zofran 4 mg IV, NSS 500 ml @ 999 mls/hr IV 1226: I reassessed the patient and she is doing well. 1253: Zosyn 4.5 gm IV 1256: Upon reevaluation, the patient is resting more comfortably. I discussed my findings with the patient and she understands and agrees with the treatment plan. Based on the patients age, coexisting illnesses, exam and lab findings the decision to treat as an inpatient was made. The patient remained stable while under my care. The patient will be evaluated for further management. 1302: I discussed the case with Dr. Sosa of general surgery. He recommended admission to medicine. 1306: I spoke with Dr. Khanna. We discussed the patient's case. The patient will be evaluated by the [facility] for further management. Medical Decision Differential diagnoses includes but is not limited to gastritis, peptic ulcer disease, GERD, gallbladder disease, pancreatitis, small bowel obstruction, acute coronary syndrome, pericarditis, ischemic bowel, irritable bowel disease, irritable bowel syndrome, appendicitis, diverticulitis, malignancy, hernia, urinary tract infection, torsion, perforation, trauma, infectious. Patient is a 71-year-old female who presents to the ER for infraumbilical abdominal pain which feels like her previous bouts diverticulitis. Labs show a mild leukocytosis of 12,000. BMP was unremarkable. Bilirubin was slightly elevated. Lipase is normal. UA was negative. CT of abdomen and pelvis shows a microperforation associate with diverticulitis and a questionable small bowel obstruction. I discussed case with internal medicine and general surgery. Patient will be admitted to internal medicine. She was given broad-spectrum antibiotics. She was updated at bedside. Medication Reconcilliation Current Medication List: was personally reviewed by me Blood Pressure Screening Patient's blood pressure: Elevated blood pressure Blood pressure disposition: Elevated BP felt to be situational Consults Time Called: 1259 Consulting Physician: Dr. Sosa Returned Call: 1302 I discussed the case with Dr. Sosa of general surgery. He recommended admission to medicine. Additional Consults: Time Called: 1302 Consulted Physician: Dr. Khanna Returned Call: 1306 Additional Comments: I spoke with Dr. Khanna. We discussed the patient's case. The patient will be evaluated by the [facility] for further management. Impression Primary Impression: Perforated diverticulum Additional Impressions: Acute diverticulitis Small bowel obstruction Scribe Attestation The scribe's documentation has been prepared under my direction and personally reviewed by me in its entirety. I confirm that the note above accurately reflects all work, treatment, procedures, and medical decision making performed by me. Departure Information Dispostion Being Evaluated By Hospitalist Referrals Zak Darnell M.D. (PCP) Patient Instructions [facility] Problem Qualifiers
[2016-11-13] MEDS: PIPERACILL/TAZOBAC IV 3.375 GM in DEXTROSE 5% 100ML 100 ML IV SCH (18:03)
[2016-11-13 22:44] VITALS: BP 131/70; PULSE 80; TEMP 37; O2SAT 97
[2016-11-14] MEDS: SODIUM CHLORIDE 0.9% 1000ML 1,000 ML IV SCH (00:24)
[2016-11-14] MEDS: MoRPHine SULFATE 2 MG/ML CARP IV PRN ×7 (00:25→20:30)
[2016-11-14] MEDS: PIPERACILL/TAZOBAC IV 3.375 GM in DEXTROSE 5% 100ML 100 ML IV SCH ×4 (02:11→23:54)
[2016-11-14] MEDS: LEVOTHYROXINE 88 MCG TAB PO SCH (04:56)
[2016-11-14 06:42] LABS: HEMATOCRIT 39.3 % (37-47); MEAN CORPUSCULAR HEMOGLOBIN 33.9 pg (25-34); MEAN CORPUSCULAR HGB CONC 33.6 g/dl (32-36); MEAN PLATELET VOLUME 9.7 fL (7.4-10.4); PLATELET COUNT 142 K/uL (130-400); RED BLOOD COUNT 3.89 M/uL (4.2-5.4); WHITE BLOOD COUNT 9.98 K/uL (4.8-10.8)
[2016-11-14 07:02] LABS: BUN/CREATININE RATIO 12.6 (10-20); CALCIUM 8.2 mg/dl (8.5-10.1); CREATININE 0.73 mg/dl (0.60-1.20); POTASSIUM 3.4 mmol/L (3.5-5.1)
[2016-11-14 07:28] VITALS: BP 133/80; PULSE 93; TEMP 37.5; O2SAT 95
[2016-11-14] MEDS: POTASSIUM CHLORIDE INJ 20 MEQ in SODIUM CHLORIDE 0.9% 1000ML 1,000 ML IV SCH ×2 (09:59→19:25)
--- NOTE | 2016-11-14 10:50 | Surgery Progress Note ---
Surgery Progress Note Date of Service Nov 14, 2016. Subjective little less pain, small BM, no fevers/chills Objective Vital Signs: Date Time Temp Pulse Resp B/P (MAP) Pulse Ox O2 Delivery O2 Flow Rate FiO2 11/14/16 07:45 Room Air 11/14/16 07:28 37.5 93 16 133/80 (97) 95 Room Air 11/13/16 23:15 Room Air 11/13/16 22:44 37.0 80 16 131/70 (90) 97 Room Air 11/13/16 16:00 Room Air 11/13/16 14:55 Room Air 11/13/16 14:55 37.0 80 18 152/82 (105) 97 Room Air 0.0 11/13/16 14:46 87 143/83 96 Room Air 11/13/16 14:41 147/86 11/13/16 14:14 Room Air 11/13/16 13:45 91 124/80 96 Room Air 11/13/16 12:34 88 11/13/16 12:22 89 20 139/85 97 Room Air Abdomen: soft, + guarding, + tenderness (LLQ) Laboratory Results: Results Past 24 Hours Test 11/13/16 10:50 11/13/16 13:30 11/14/16 06:13 Range/Units White Blood Count 12.26 9.98 4.8-10.8 K/uL Red Blood Count 4.50 3.89 4.2-5.4 M/uL Hemoglobin 14.9 13.2 12.0-16.0 g/dL Hematocrit 44.9 39.3 37-47 % Mean Corpuscular Volume 99.8 101.0 80-100 fL Mean Corpuscular Hemoglobin 33.1 33.9 25-34 pg Mean Corpuscular Hemoglobin Concent 33.2 33.6 32-36 g/dl Platelet Count 187 142 130-400 K/uL Mean Platelet Volume 9.8 9.7 7.4-10.4 fL Neutrophils (%) (Auto) 85.8 % Lymphocytes (%) (Auto) 7.7 % Monocytes (%) (Auto) 5.7 % Eosinophils (%) (Auto) 0.4 % Basophils (%) (Auto) 0.2 % Neutrophils # (Auto) 10.51 1.4-6.5 K/uL Lymphocytes # (Auto) 0.95 1.2-3.4 K/uL Monocytes # (Auto) 0.70 0.11-0.59 K/uL Eosinophils # (Auto) 0.05 0-0.5 K/uL Basophils # (Auto) 0.02 0-0.2 K/uL RDW Standard Deviation 47.3 48.6 36.4-46.3 fL RDW Coefficient of Variation 13.0 13.2 11.5-14.5 % Immature Granulocyte % (Auto) 0.2 % Immature Granulocyte # (Auto) 0.03 0.00-0.02 K/uL Sodium Level 138 141 136-145 mmol/L Potassium Level 3.5 3.4 3.5-5.1 mmol/L Chloride Level 105 108 98-107 mmol/L Carbon Dioxide Level 28 25 21-32 mmol/L Anion Gap 5.0 8.0 3-11 mmol/L Blood Urea Nitrogen 12 9 7-18 mg/dl Creatinine 0.92 0.73 0.60-1.20 mg/dl Est Creatinine Clear Calc Drug Dose 54.6 68.8 ml/min Estimated GFR () 72.6 96.0 Estimated GFR (Non- 62.6 82.9 BUN/Creatinine Ratio 13.4 12.6 10-20 Random Glucose 114 110 70-99 mg/dl Calcium Level 8.9 8.2 8.5-10.1 mg/dl Total Bilirubin 1.2 0.2-1 mg/dl Direct Bilirubin 0.3 0-0.2 mg/dl Aspartate Amino Transf (AST/SGOT) 8 15-37 U/L Alanine Aminotransferase (ALT/SGPT) 15 12-78 U/L Alkaline Phosphatase 68 45-117 U/L Total Protein 7.0 6.4-8.2 gm/dl Albumin 3.2 3.4-5.0 gm/dl Lipase 60 73-393 U/L Urine Color YELLOW Urine Appearance CLEAR CLEAR Urine pH 7.0 4.5-7.5 Urine Specific [place] > 1.045 1.000-1.030 Urine Protein TRACE NEG Urine Glucose (UA) NEG NEG Urine Ketones NEG NEG Urine Occult Blood NEG NEG Urine Nitrite NEG NEG Urine Bilirubin NEG NEG Urine Urobilinogen NEG NEG Urine Leukocyte Esterase NEG NEG Urine WBC (Auto) 1-5 0-5 /hpf Urine RBC (Auto) 0-4 0-4 /hpf Urine Hyaline Casts (Auto) 1-5 0-5 /lpf Urine Epithelial Cells (Auto) 10-20 0-5 /lpf Urine Bacteria (Auto) NEG NEG Assessment & Plan diverticulitis with microperf WBC improved but remains tender will increase Zosyn to q6h and add Flagyl continue to follow closely can have clears
--- NOTE | 2016-11-14 11:27 | Hospitalist Progress Note ---
Hospitalist Progress Note Date of Service Nov 14, 2016. Subjective Pt evaluation today including: conversation w/ patient, conversation w/ family , physical exam, chart review, lab review, review of studies, review of inpatient medication list Patient seen and evaluated. No acute events overnight. Reporting pain is improving but still remains and current regimen is not completely sufficient. Is having BMs and passing flatus. Is feeling better but not at baseline. Follows with Dr. Menjivar from [facility]. Constitutional: No fever, No chills Respiratory: No shortness of breath Cardiovascular: No chest pain, No palpitations Abdomen: + pain (L side), No nausea, No vomiting, No diarrhea, No constipation Musculoskeletal: No calf pain Female : No dysuria Heme: No abnormal bleeding/bruising Medications Current Inpatient Medications Medications (Trade) Dose Ordered Sig/Ric Route Start Time Stop Time Status Last Admin Dose Admin Ioversol (Optiray 320) 100 ml UD PRN IV 11/13/16 11:30 11/17/16 11:29 Acetaminophen (Tylenol Tab) 650 mg Q4H PRN PO 11/13/16 14:00 12/13/16 13:59 Al Hydrox/Mg Hydrox/Simethicone (Maalox Max Susp) 15 ml Q4H PRN PO 11/13/16 14:00 12/13/16 13:59 Magnesium Hydroxide (Milk Of Magnesia Susp) 30 ml Q6H PRN PO 11/13/16 14:00 12/13/16 13:59 Polyethylene (Miralax Powder Packet) 17 gm DAILY PRN PO 11/13/16 14:45 12/13/16 14:44 Ondansetron HCl (Zofran Inj) 4 mg Q6H PRN IV 11/13/16 14:00 12/13/16 13:59 Levothyroxine Sodium (Synthroid Tab) 88 mcg DAILYBB PO 11/14/16 06:00 12/14/16 06:59 Morphine Sulfate (MoRPHine SULFATE INJ) 1 mg Q2H PRN IV 11/13/16 14:00 11/27/16 13:59 Piperacillin Sod/ Tazobactam Sod (Consult) 1 ea UD PRN N/A 11/13/16 14:30 12/13/16 14:29 Potassium Chloride 20 meq/ Sodium Chloride 1,010 ml @ 100 mls/hr Q10H6M IV 11/14/16 09:00 12/13/16 08:59 11/14/16 09:59 100 MLS/HR Metronidazole 500 mg/Prmx 100 ml @ 100 mls/hr Q8H IV 11/14/16 10:45 11/24/16 10:44 UNV Piperacillin Sod/ Tazobactam Sod 3.375 gm/Dextrose 115 ml @ 200 mls/hr Q6 IV 11/14/16 12:00 11/24/16 11:59 UNV Morphine Sulfate (MoRPHine SULFATE INJ) 3 mg Q3H PRN IV 11/14/16 14:00 11/27/16 13:59 UNV Objective Vital Signs Date Time Temp Pulse Resp B/P (MAP) Pulse Ox O2 Delivery O2 Flow Rate FiO2 11/14/16 07:45 Room Air 11/14/16 07:28 37.5 93 16 133/80 (97) 95 Room Air 11/13/16 23:15 Room Air 11/13/16 22:44 37.0 80 16 131/70 (90) 97 Room Air 11/13/16 16:00 Room Air 11/13/16 14:55 Room Air 11/13/16 14:55 37.0 80 18 152/82 (105) 97 Room Air 0.0 11/13/16 14:46 87 143/83 96 Room Air 11/13/16 14:41 147/86 11/13/16 14:14 Room Air 11/13/16 13:45 91 124/80 96 Room Air 11/13/16 12:34 88 11/13/16 12:22 89 20 139/85 97 Room Air Physical Exam General Appearance: WD/WN, no apparent distress Eyes: sclerae normal ENT: hearing grossly normal Neck: supple, no JVD, trachea midline Respiratory/Chest: lungs clear, normal breath sounds, no respiratory distress, no accessory muscle use Cardiovascular: regular rate, rhythm, no gallop, no murmur Abdomen: normal bowel sounds, soft, + tenderness (LLQ) Extremities: no calf tenderness Neurologic/Psychiatric: alert, oriented x 3 Skin: normal color, warm/dry Laboratory Results Last 24 Hours Test 11/13/16 13:30 11/14/16 06:13 Urine Color YELLOW Urine Appearance CLEAR Urine pH 7.0 Urine Specific [place] > 1.045 Urine Protein TRACE Urine Glucose (UA) NEG Urine Ketones NEG Urine Occult Blood NEG Urine Nitrite NEG Urine Bilirubin NEG Urine Urobilinogen NEG Urine Leukocyte Esterase NEG Urine WBC (Auto) 1-5 /hpf Urine RBC (Auto) 0-4 /hpf Urine Hyaline Casts (Auto) 1-5 /lpf Urine Epithelial Cells (Auto) 10-20 /lpf Urine Bacteria (Auto) NEG White Blood Count 9.98 K/uL Red Blood Count 3.89 M/uL Hemoglobin 13.2 g/dL Hematocrit 39.3 % Mean Corpuscular Volume 101.0 fL Mean Corpuscular Hemoglobin 33.9 pg Mean Corpuscular Hemoglobin Concent 33.6 g/dl RDW Standard Deviation 48.6 fL RDW Coefficient of Variation 13.2 % Platelet Count 142 K/uL Mean Platelet Volume 9.7 fL Sodium Level 141 mmol/L Potassium Level 3.4 mmol/L Chloride Level 108 mmol/L Carbon Dioxide Level 25 mmol/L Anion Gap 8.0 mmol/L Blood Urea Nitrogen 9 mg/dl Creatinine 0.73 mg/dl Est Creatinine Clear Calc Drug Dose 68.8 ml/min Estimated GFR () 96.0 Estimated GFR (Non- 82.9 BUN/Creatinine Ratio 12.6 Random Glucose 110 mg/dl Calcium Level 8.2 mg/dl Assessment and Plan Ms. Gutierrez is a 71 y/o female with PMHx of hypothyroidism, mild cognitive impairment, and Diverticular Disease with Diverticulitis x 2 who presents with another episode of Diverticulitis Acute Diverticulitis with Microperforation and Possible Partial SBO: IMPROVING - Reports pain is improving but current dosing is not sufficient - will increase Morphine - + BM and + flatus - Zosyn 3.375 Q6H and Metronidazole 500 mg IV Q8H - NSS at 100 mL/hr and will D/C when oral intake adequate - Gen Surg following - appreciate recommendations -- Consideration for surgical intervention after resolution - diet advanced -- Will need scheduled colonoscopy with Dr. Nolasco post-poned Possible Acute Cystitis on CT: - UA unremarkable - likely finding is reactive in setting of diverticulitis Hypothyroidism: - Synthroid 88 mcg daily B/L Lower Extremity Lymphedema: - Aldactone 50 mg daily PRN DVT Prophylaxis: TERESO/SCDs Code Status: FULL RESUSCITATION Disposition: - Continue IV antibiotics and well advance diet with assistance of surgery - likely will need surgical consideration after acute flair resolved - possible D/ C 2-3 days Continued [facility] stay due to: multiple IV medications needed Discharge planning: home
[2016-11-14] MEDS ORDERED: MoRPHine SULFATE 4 MG/ML 1 ML CARP\\VIAL IV PRN (14:00)
[2016-11-14] MEDS: METRONIDAZOLE / NSS 500 MG in PREMIXED NSS 100 ML IV SCH ×2 (14:05→20:34)
[2016-11-14 14:55] VITALS: BP 139/80; PULSE 91; TEMP 37.9; O2SAT 95
[2016-11-14 23:07] VITALS: BP 139/80; PULSE 87; TEMP 37.3; O2SAT 93
[2016-11-15] MEDS: MoRPHine SULFATE 2 MG/ML CARP IV PRN ×5 (00:01→20:54)
[2016-11-15] MEDS: LEVOTHYROXINE 88 MCG TAB PO SCH (05:19)
[2016-11-15] MEDS: POTASSIUM CHLORIDE INJ 20 MEQ in SODIUM CHLORIDE 0.9% 1000ML 1,000 ML IV SCH ×2 (05:26→15:32)
[2016-11-15] MEDS: PIPERACILL/TAZOBAC IV 3.375 GM in DEXTROSE 5% 100ML 100 ML IV SCH ×4 (05:27→23:47)
[2016-11-15] MEDS: METRONIDAZOLE / NSS 500 MG in PREMIXED NSS 100 ML IV SCH ×3 (05:28→21:00)
[2016-11-15 06:02] LABS: HEMATOCRIT 38.6 % (37-47); MEAN CORPUSCULAR HEMOGLOBIN 33.7 pg (25-34); MEAN CORPUSCULAR HGB CONC 33.7 g/dl (32-36); MEAN PLATELET VOLUME 9.8 fL (7.4-10.4); PLATELET COUNT 149 K/uL (130-400); RED BLOOD COUNT 3.86 M/uL (4.2-5.4); WHITE BLOOD COUNT 9.29 K/uL (4.8-10.8)
[2016-11-15 06:36] LABS: BUN/CREATININE RATIO 8.8 (10-20); CALCIUM 7.8 mg/dl (8.5-10.1); CREATININE 0.65 mg/dl (0.60-1.20); POTASSIUM 3.5 mmol/L (3.5-5.1)
[2016-11-15 07:30] VITALS: BP 144/83; PULSE 78; TEMP 37.2; O2SAT 94
--- NOTE | 2016-11-15 07:54 | Surgery Progress Note ---
Surgery Progress Note Date of Service Nov 15, 2016. Subjective feeling better, less pain, no fever/chills, BMs forming Objective Vital Signs: Date Time Temp Pulse Resp B/P (MAP) Pulse Ox O2 Delivery O2 Flow Rate FiO2 11/15/16 07:30 37.2 78 20 144/83 (103) 94 Room Air 11/14/16 23:51 Room Air 11/14/16 23:07 37.3 87 16 139/80 (99) 93 Room Air 11/14/16 15:30 Room Air 11/14/16 14:55 37.9 91 18 139/80 (99) 95 Room Air Abdomen: non distended, soft, + tenderness (improved) Laboratory Results: Results Past 24 Hours Test 11/15/16 05:32 Range/Units White Blood Count 9.29 4.8-10.8 K/uL Red Blood Count 3.86 4.2-5.4 M/uL Hemoglobin 13.0 12.0-16.0 g/dL Hematocrit 38.6 37-47 % Mean Corpuscular Volume 100.0 80-100 fL Mean Corpuscular Hemoglobin 33.7 25-34 pg Mean Corpuscular Hemoglobin Concent 33.7 32-36 g/dl RDW Standard Deviation 47.0 36.4-46.3 fL RDW Coefficient of Variation 13.0 11.5-14.5 % Platelet Count 149 130-400 K/uL Mean Platelet Volume 9.8 7.4-10.4 fL Sodium Level 140 136-145 mmol/L Potassium Level 3.5 3.5-5.1 mmol/L Chloride Level 108 98-107 mmol/L Carbon Dioxide Level 24 21-32 mmol/L Anion Gap 8.0 3-11 mmol/L Blood Urea Nitrogen 6 7-18 mg/dl Creatinine 0.65 0.60-1.20 mg/dl Est Creatinine Clear Calc Drug Dose 77.2 ml/min Estimated GFR () 103.5 Estimated GFR (Non- 89.3 BUN/Creatinine Ratio 8.8 10-20 Random Glucose 100 70-99 mg/dl Calcium Level 7.8 8.5-10.1 mg/dl Assessment & Plan diverticulitis with microperf WBC normal, Tmax 37.9 cont Zosyn & Flagyl on sips slowly improving
--- NOTE | 2016-11-15 09:56 | DIAGNOSTIC IMAGING REPORT ---
ABD/PELVIS IV CONTRAST ONLY CT DOSE: 428.60 mGy.cm HISTORY: Diverticulitis diverticulitis TECHNIQUE: Multiaxial CT images of the abdomen and pelvis were performed following the use of intravenous contrast. A dose lowering technique was utilized adhering to the principles of ALARA. COMPARISON STUDY: 11/13/2016 FINDINGS: Lung bases remain clear. Liver remains uniform. Moderate gallbladder distention. Kidneys enhance uniformly and are in spleen is unremarkable. Scattered colonic diverticulosis. Slight increase in reactive fluid within the right paracolic gutter. Persistent infiltrative change of the soft tissue pelvis with a slight increase in fluid within the pelvic cul-de-sac. A well-defined drainable abscess or collection remains absent. The small extraluminal air component is diminished. Persistent small bowel wall thickening and to a lesser extent wall thickening of the sigmoid appeared to be similar. The small bowel wall thickening is perhaps slightly increased in prominence. Bowel pattern overall is nonobstructive. No evidence for pneumatosis. IMPRESSION: 1. Persistent findings of acute sigmoid diverticulitis with a slightly progressive a component of free fluid within the pelvic cul-de-sac as well as right paracolic gutter. Slightly progressive pelvic infiltrative change. 2. Bowel pattern remains nonobstructive. 3. Mild increase in prominence of a thickened loop of small bowel within the soft tissue pelvis again most likely reactive. 4. No current evidence for a well-defined drainable abscess or collection. 5. Continued close CT monitoring is suggested to exclude early collection formation The above report was generated using voice recognition software. It may contain grammatical, syntax or spelling errors. Electronically signed by: Philip Jaramillo M.D. 11/15/2016 9:54 AM Dictated Date/Time: 11/15/2016 9:49 AM
[2016-11-15] MEDS ORDERED: OPTIRAY 320 IV PRN (10:00)
[2016-11-15] MEDS ORDERED: MoRPHine SULFATE 4 MG/ML 1 ML CARP\\VIAL IV PRN (11:00)
--- NOTE | 2016-11-15 11:38 | Hospitalist Progress Note ---
Hospitalist Progress Note Date of Service Nov 15, 2016. Subjective Pt evaluation today including: conversation w/ patient, conversation w/ family , physical exam, chart review, lab review, review of studies, review of inpatient medication list Patient seen and evaluated. No acute events overnight. Continues to have abdominal pain and stating medication doesn't give sufficient relief. Did have mild fever yesterday. Has L and R lower quadrant tenderness on exam. + flatus + BM. Reports she is hungry. Constitutional: No fever, No chills Respiratory: No shortness of breath Cardiovascular: No chest pain Abdomen: + pain, No nausea, No vomiting, No diarrhea, No constipation, No GI bleeding Musculoskeletal: + swelling (chronic - baseline lymphemedema ) Female : No dysuria Heme: No abnormal bleeding/bruising Skin: No rash Medications Current Inpatient Medications Medications (Trade) Dose Ordered Sig/Ric Route Start Time Stop Time Status Last Admin Dose Admin Ioversol (Optiray 320) 100 ml UD PRN IV 11/13/16 11:30 11/17/16 11:29 Acetaminophen (Tylenol Tab) 650 mg Q4H PRN PO 11/13/16 14:00 12/13/16 13:59 Al Hydrox/Mg Hydrox/Simethicone (Maalox Max Susp) 15 ml Q4H PRN PO 11/13/16 14:00 12/13/16 13:59 Magnesium Hydroxide (Milk Of Magnesia Susp) 30 ml Q6H PRN PO 11/13/16 14:00 12/13/16 13:59 Polyethylene (Miralax Powder Packet) 17 gm DAILY PRN PO 11/13/16 14:45 12/13/16 14:44 Ondansetron HCl (Zofran Inj) 4 mg Q6H PRN IV 11/13/16 14:00 12/13/16 13:59 Levothyroxine Sodium (Synthroid Tab) 88 mcg DAILYBB PO 11/14/16 06:00 12/14/16 06:59 Piperacillin Sod/ Tazobactam Sod (Consult) 1 ea UD PRN N/A 11/13/16 14:30 12/13/16 14:29 Potassium Chloride 20 meq/ Sodium Chloride 1,010 ml @ 100 mls/hr Q10H6M IV 11/14/16 09:00 12/13/16 08:59 11/15/16 05:26 100 MLS/HR Metronidazole 500 mg/Prmx 100 ml @ 100 mls/hr Q8H IV 11/14/16 13:00 11/24/16 12:59 11/15/16 05:28 100 MLS/HR Piperacillin Sod/ Tazobactam Sod 3.375 gm/Dextrose 115 ml @ 200 mls/hr Q6 IV 11/14/16 18:00 11/24/16 17:59 11/15/16 05:27 200 MLS/HR Ioversol (Optiray 320) 125 ml UD PRN IV 11/15/16 10:00 11/19/16 09:59 Morphine Sulfate (MoRPHine SULFATE INJ) 4 mg Q3H PRN IV 11/15/16 11:00 11/27/16 13:59 UNV Morphine Sulfate (MoRPHine SULFATE INJ) 2 mg Q2H PRN IV 11/15/16 12:00 11/27/16 13:59 UNV Objective Vital Signs Date Time Temp Pulse Resp B/P (MAP) Pulse Ox O2 Delivery O2 Flow Rate FiO2 11/15/16 07:40 Room Air 11/15/16 07:30 37.2 78 20 144/83 (103) 94 Room Air 11/14/16 23:51 Room Air 11/14/16 23:07 37.3 87 16 139/80 (99) 93 Room Air 11/14/16 15:30 Room Air 11/14/16 14:55 37.9 91 18 139/80 (99) 95 Room Air Physical Exam General Appearance: WD/WN, no apparent distress Eyes: sclerae normal ENT: hearing grossly normal Neck: supple, no JVD, trachea midline Respiratory/Chest: lungs clear, normal breath sounds, no respiratory distress, no accessory muscle use Cardiovascular: regular rate, rhythm, no gallop, no murmur Abdomen: normal bowel sounds, soft, + tenderness (LLQ and RLQ) Extremities: no calf tenderness, + swelling (bilateral lymphedema with R > L) Neurologic/Psychiatric: alert, oriented x 3 Skin: normal color, warm/dry Laboratory Results Last 24 Hours Test 11/15/16 05:32 White Blood Count 9.29 K/uL Red Blood Count 3.86 M/uL Hemoglobin 13.0 g/dL Hematocrit 38.6 % Mean Corpuscular Volume 100.0 fL Mean Corpuscular Hemoglobin 33.7 pg Mean Corpuscular Hemoglobin Concent 33.7 g/dl RDW Standard Deviation 47.0 fL RDW Coefficient of Variation 13.0 % Platelet Count 149 K/uL Mean Platelet Volume 9.8 fL Sodium Level 140 mmol/L Potassium Level 3.5 mmol/L Chloride Level 108 mmol/L Carbon Dioxide Level 24 mmol/L Anion Gap 8.0 mmol/L Blood Urea Nitrogen 6 mg/dl Creatinine 0.65 mg/dl Est Creatinine Clear Calc Drug Dose 77.2 ml/min Estimated GFR () 103.5 Estimated GFR (Non- 89.3 BUN/Creatinine Ratio 8.8 Random Glucose 100 mg/dl Calcium Level 7.8 mg/dl Assessment and Plan Ms. Gutierrez is a 71 y/o female with PMHx of hypothyroidism, mild cognitive impairment, and Diverticular Disease with Diverticulitis x 2 who presents with another episode of Diverticulitis Acute Diverticulitis with Microperforation and Possible Partial SBO: IMPROVING - Zosyn 3.375 Q6H and Metronidazole 500 mg IV Q8H - NSS at 100 mL/hr - Gen Surg following - appreciate recommendations -- Repeat CT today - consideration for further observation vs surgical intervention Possible Acute Cystitis on CT: - UA unremarkable - likely finding is reactive in setting of diverticulitis Hypothyroidism: - Synthroid 88 mcg daily - currently NPO - can place IV if NPO status remains B/L Lower Extremity Lymphedema: - Aldactone 50 mg daily PRN DVT Prophylaxis: TERESO/SCDs Code Status: FULL RESUSCITATION Disposition: - Awaiting further intervention by Gen Surg - possible D/C 1-2 days Continued [facility] stay due to: multiple IV medications needed Discharge planning: home
[2016-11-15 15:05] VITALS: BP 150/81; PULSE 82; TEMP 36.9; O2SAT 94
--- NOTE | 2016-11-15 15:50 | Consultant Recommendations ---
Investor Relations Analyst Recommendations Date of Service Nov 15, 2016. Investor Relations Analyst Recommendations pt re-examined. looks /feels much better than this am. ct essentially unchanged. will continue to follow closely.
[2016-11-15 23:00] VITALS: BP 148/78; PULSE 78; TEMP 37.4; O2SAT 94
[2016-11-16] MEDS: POTASSIUM CHLORIDE INJ 20 MEQ in SODIUM CHLORIDE 0.9% 1000ML 1,000 ML IV SCH ×2 (01:14→11:54)
[2016-11-16] MEDS: METRONIDAZOLE / NSS 500 MG in PREMIXED NSS 100 ML IV SCH ×3 (04:31→20:47)
[2016-11-16] MEDS: PIPERACILL/TAZOBAC IV 3.375 GM in DEXTROSE 5% 100ML 100 ML IV SCH ×3 (05:52→18:16)
[2016-11-16] MEDS: LEVOTHYROXINE 88 MCG TAB PO SCH (05:52)
[2016-11-16 07:06] LABS: HEMATOCRIT 39.3 % (37-47); MEAN CELL VOLUME 99.5 fL (80-100); MEAN CORPUSCULAR HEMOGLOBIN 32.7 pg (25-34); MEAN CORPUSCULAR HGB CONC 32.8 g/dl (32-36); MEAN PLATELET VOLUME 9.5 fL (7.4-10.4); PLATELET COUNT 177 K/uL (130-400); RED BLOOD COUNT 3.95 M/uL (4.2-5.4); WHITE BLOOD COUNT 6.88 K/uL (4.8-10.8)
[2016-11-16 07:32] LABS: BUN/CREATININE RATIO 7.4 (10-20); CALCIUM 8.3 mg/dl (8.5-10.1); CREATININE 0.58 mg/dl (0.60-1.20); POTASSIUM 3.4 mmol/L (3.5-5.1)
[2016-11-16 07:33] VITALS: BP 146/83; PULSE 75; TEMP 37; O2SAT 96
[2016-11-16] MEDS: MoRPHine SULFATE 2 MG/ML CARP IV PRN ×5 (08:11→22:12)
--- NOTE | 2016-11-16 08:41 | Surgery Progress Note ---
Surgery Progress Note Date of Service Nov 16, 2016. Subjective + bowel movement, + diet (NPO), No complaints (still some pain but improved), No nausea Objective Vital Signs: Date Time Temp Pulse Resp B/P (MAP) Pulse Ox O2 Delivery O2 Flow Rate FiO2 11/16/16 07:33 37.0 75 16 146/83 (104) 96 Room Air 11/16/16 00:00 Room Air 11/15/16 23:00 37.4 78 16 148/78 (101) 94 Room Air 11/15/16 20:45 Room Air 11/15/16 15:30 Room Air 11/15/16 15:05 36.9 82 18 150/81 (104) 94 Room Air Abdomen: non distended, soft, + tenderness (less and more localized to LLQ) Laboratory Results: Results Past 24 Hours Test 11/16/16 06:30 Range/Units White Blood Count 6.88 4.8-10.8 K/uL Red Blood Count 3.95 4.2-5.4 M/uL Hemoglobin 12.9 12.0-16.0 g/dL Hematocrit 39.3 37-47 % Mean Corpuscular Volume 99.5 80-100 fL Mean Corpuscular Hemoglobin 32.7 25-34 pg Mean Corpuscular Hemoglobin Concent 32.8 32-36 g/dl RDW Standard Deviation 46.6 36.4-46.3 fL RDW Coefficient of Variation 12.7 11.5-14.5 % Platelet Count 177 130-400 K/uL Mean Platelet Volume 9.5 7.4-10.4 fL Sodium Level 140 136-145 mmol/L Potassium Level 3.4 3.5-5.1 mmol/L Chloride Level 107 98-107 mmol/L Carbon Dioxide Level 26 21-32 mmol/L Anion Gap 7.0 3-11 mmol/L Blood Urea Nitrogen 4 7-18 mg/dl Creatinine 0.58 0.60-1.20 mg/dl Est Creatinine Clear Calc Drug Dose 86.5 ml/min Estimated GFR () 107.5 Estimated GFR (Non- 92.7 BUN/Creatinine Ratio 7.4 10-20 Random Glucose 114 70-99 mg/dl Calcium Level 8.3 8.5-10.1 mg/dl Assessment & Plan diverticulitis with microperf slowly improving cont IV Zosyn/Flagyl start on clears
[2016-11-16] MEDS ORDERED: POTASSIUM CHLORIDE 10 MEQ TABCR PO ONE (12:15)
[2016-11-16] MEDS: ACETAMINOPHEN 325 MG TAB PO PRN (12:43)
--- NOTE | 2016-11-16 14:26 | Hospitalist Progress Note ---
Hospitalist Progress Note Date of Service Nov 16, 2016. Subjective Pt evaluation today including: conversation w/ patient, conversation w/ family , physical exam, chart review, lab review, review of studies, review of inpatient medication list Patient seen and evaluated. Pain is improving and currently dosing is adequate for pain management. Is tolerating a clear liquid diet. Verbalizes no other issues at this time. Likely will be here through the weekend. Constitutional: No fever, No chills Respiratory: No shortness of breath Cardiovascular: No chest pain Abdomen: + pain (improving), No nausea, No vomiting, No diarrhea, No constipation Musculoskeletal: + swelling (chronic - baseline), No calf pain Female : No dysuria Heme: No abnormal bleeding/bruising Medications Current Inpatient Medications Medications (Trade) Dose Ordered Sig/Ric Route Start Time Stop Time Status Last Admin Dose Admin Ioversol (Optiray 320) 100 ml UD PRN IV 11/13/16 11:30 11/17/16 11:29 Acetaminophen (Tylenol Tab) 650 mg Q4H PRN PO 11/13/16 14:00 12/13/16 13:59 11/16/16 12:43 650 MG Al Hydrox/Mg Hydrox/Simethicone (Maalox Max Susp) 15 ml Q4H PRN PO 11/13/16 14:00 12/13/16 13:59 Magnesium Hydroxide (Milk Of Magnesia Susp) 30 ml Q6H PRN PO 11/13/16 14:00 12/13/16 13:59 Polyethylene (Miralax Powder Packet) 17 gm DAILY PRN PO 11/13/16 14:45 12/13/16 14:44 Ondansetron HCl (Zofran Inj) 4 mg Q6H PRN IV 11/13/16 14:00 12/13/16 13:59 Levothyroxine Sodium (Synthroid Tab) 88 mcg DAILYBB PO 11/14/16 06:00 12/14/16 06:59 11/16/16 05:52 88 MCG Piperacillin Sod/ Tazobactam Sod (Consult) 1 ea UD PRN N/A 11/13/16 14:30 12/13/16 14:29 Potassium Chloride 20 meq/ Sodium Chloride 1,010 ml @ 100 mls/hr Q10H6M IV 11/14/16 09:00 12/13/16 08:59 11/16/16 11:54 100 MLS/HR Metronidazole 500 mg/Prmx 100 ml @ 100 mls/hr Q8H IV 11/14/16 13:00 11/24/16 12:59 11/16/16 12:43 100 MLS/HR Piperacillin Sod/ Tazobactam Sod 3.375 gm/Dextrose 115 ml @ 200 mls/hr Q6 IV 11/14/16 18:00 11/24/16 17:59 11/16/16 11:55 200 MLS/HR Ioversol (Optiray 320) 125 ml UD PRN IV 11/15/16 10:00 11/19/16 09:59 Morphine Sulfate (MoRPHine SULFATE INJ) 4 mg Q3H PRN IV 11/15/16 11:00 11/27/16 13:59 Morphine Sulfate (MoRPHine SULFATE INJ) 2 mg Q2H PRN IV 11/15/16 12:00 11/27/16 13:59 11/16/16 11:52 2 MG Objective Vital Signs Date Time Temp Pulse Resp B/P (MAP) Pulse Ox O2 Delivery O2 Flow Rate FiO2 11/16/16 08:00 Room Air 11/16/16 07:33 37.0 75 16 146/83 (104) 96 Room Air 11/16/16 00:00 Room Air 11/15/16 23:00 37.4 78 16 148/78 (101) 94 Room Air 11/15/16 20:45 Room Air 11/15/16 15:30 Room Air 11/15/16 15:05 36.9 82 18 150/81 (104) 94 Room Air Physical Exam General Appearance: WD/WN, no apparent distress Eyes: sclerae normal ENT: hearing grossly normal Neck: supple, no JVD, trachea midline Respiratory/Chest: lungs clear, normal breath sounds, no respiratory distress, no accessory muscle use Cardiovascular: regular rate, rhythm, no gallop, no murmur Abdomen: normal bowel sounds, soft, + tenderness (LLQ) Extremities: no calf tenderness, + swelling (bilateral non-pitting edema) Neurologic/Psychiatric: alert Skin: normal color, warm/dry Laboratory Results Last 24 Hours Test 11/16/16 06:30 White Blood Count 6.88 K/uL Red Blood Count 3.95 M/uL Hemoglobin 12.9 g/dL Hematocrit 39.3 % Mean Corpuscular Volume 99.5 fL Mean Corpuscular Hemoglobin 32.7 pg Mean Corpuscular Hemoglobin Concent 32.8 g/dl RDW Standard Deviation 46.6 fL RDW Coefficient of Variation 12.7 % Platelet Count 177 K/uL Mean Platelet Volume 9.5 fL Sodium Level 140 mmol/L Potassium Level 3.4 mmol/L Chloride Level 107 mmol/L Carbon Dioxide Level 26 mmol/L Anion Gap 7.0 mmol/L Blood Urea Nitrogen 4 mg/dl Creatinine 0.58 mg/dl Est Creatinine Clear Calc Drug Dose 86.5 ml/min Estimated GFR () 107.5 Estimated GFR (Non- 92.7 BUN/Creatinine Ratio 7.4 Random Glucose 114 mg/dl Calcium Level 8.3 mg/dl Assessment and Plan Ms. Gutierrez is a 71 y/o female with PMHx of Hypothyroidism, Mild Cognitive Impairment, and Diverticular Disease with Diverticulitis x 2 who presents with another episode of Diverticulitis Acute Diverticulitis with Microperforation and Possible Partial SBO: IMPROVING - Zosyn 3.375 Q6H and Metronidazole 500 mg IV Q8H - Gen Surg following - appreciate recommendations and diet recommendations - currently moved to full liquid Possible Acute Cystitis on CT: - UA unremarkable - likely finding is reactive in setting of diverticulitis Hypothyroidism: - Synthroid 88 mcg daily B/L Lower Extremity Lymphedema: - Aldactone 50 mg daily PRN DVT Prophylaxis: TERESO/SCDs Code Status: FULL RESUSCITATION Disposition: - Advancing diet - D/C likely this weekend Continued [facility] stay due to: other (diet advancement and tolerance) Discharge planning: home
[2016-11-16 15:10] VITALS: BP 147/95; PULSE 65; TEMP 36.7; O2SAT 96
[2016-11-16 15:30] VITALS: O2SAT 96
[2016-11-16 23:40] VITALS: BP 153/88; PULSE 73; TEMP 36.9; O2SAT 97
[2016-11-17] MEDS: PIPERACILL/TAZOBAC IV 3.375 GM in DEXTROSE 5% 100ML 100 ML IV SCH ×4 (00:11→17:56)
[2016-11-17] MEDS: METRONIDAZOLE / NSS 500 MG in PREMIXED NSS 100 ML IV SCH ×3 (04:49→20:43)
[2016-11-17] MEDS: LEVOTHYROXINE 88 MCG TAB PO SCH (06:00)
[2016-11-17 07:23] LABS: HEMATOCRIT 39.7 % (37-47); MEAN CELL VOLUME 99.5 fL (80-100); MEAN CORPUSCULAR HEMOGLOBIN 33.6 pg (25-34); MEAN CORPUSCULAR HGB CONC 33.8 g/dl (32-36); MEAN PLATELET VOLUME 9.3 fL (7.4-10.4); PLATELET COUNT 201 K/uL (130-400); RED BLOOD COUNT 3.99 M/uL (4.2-5.4); WHITE BLOOD COUNT 6.68 K/uL (4.8-10.8)
[2016-11-17 07:26] VITALS: BP 149/89; PULSE 72; TEMP 36.9; O2SAT 97
[2016-11-17 07:56] LABS: BUN/CREATININE RATIO 7.3 (10-20); CALCIUM 8.1 mg/dl (8.5-10.1); CREATININE 0.62 mg/dl (0.60-1.20); POTASSIUM 3.4 mmol/L (3.5-5.1)
[2016-11-17] MEDS: MoRPHine SULFATE 2 MG/ML CARP IV PRN ×3 (08:00→22:23)
--- NOTE | 2016-11-17 08:24 | Surgery Progress Note ---
Surgery Progress Note Date of Service Nov 17, 2016. Subjective Still with 5/10 abdominal pain. Tolerated clears yesterday with no nausea or increase in pain. Objective Vital Signs: Date Time Temp Pulse Resp B/P (MAP) Pulse Ox O2 Delivery O2 Flow Rate FiO2 11/17/16 07:26 36.9 72 20 149/89 (109) 97 Room Air 11/17/16 00:20 Room Air 11/16/16 23:40 36.9 73 16 153/88 (109) 97 Room Air 11/16/16 15:30 96 Room Air 11/16/16 15:10 36.7 65 18 147/95 (112) 96 Room Air General Appearance: WD/WN, no apparent distress Respiratory/Chest: normal breath sounds, no accessory muscle use Cardiovascular: regular rate, rhythm Abdomen: normal bowel sounds, non distended, soft, + tenderness (epigastric, mid abdomen) Extremities: no pedal edema Laboratory Results: Results Past 24 Hours Test 11/17/16 06:54 Range/Units White Blood Count 6.68 4.8-10.8 K/uL Red Blood Count 3.99 4.2-5.4 M/uL Hemoglobin 13.4 12.0-16.0 g/dL Hematocrit 39.7 37-47 % Mean Corpuscular Volume 99.5 80-100 fL Mean Corpuscular Hemoglobin 33.6 25-34 pg Mean Corpuscular Hemoglobin Concent 33.8 32-36 g/dl RDW Standard Deviation 46.5 36.4-46.3 fL RDW Coefficient of Variation 12.8 11.5-14.5 % Platelet Count 201 130-400 K/uL Mean Platelet Volume 9.3 7.4-10.4 fL Sodium Level 138 136-145 mmol/L Potassium Level 3.4 3.5-5.1 mmol/L Chloride Level 107 98-107 mmol/L Carbon Dioxide Level 25 21-32 mmol/L Anion Gap 6.0 3-11 mmol/L Blood Urea Nitrogen 5 7-18 mg/dl Creatinine 0.62 0.60-1.20 mg/dl Est Creatinine Clear Calc Drug Dose 80.9 ml/min Estimated GFR () 105.1 Estimated GFR (Non- 90.7 BUN/Creatinine Ratio 7.3 10-20 Random Glucose 114 70-99 mg/dl Calcium Level 8.1 8.5-10.1 mg/dl Assessment & Plan 71 yr old woman with diverticulitis and microperforation. Slowly improving. Will advance to full liquids today. Continue IV abx.
[2016-11-17] MEDS: ACETAMINOPHEN 325 MG TAB PO PRN (14:05)
--- NOTE | 2016-11-17 14:16 | Progress Note ---
Subjective Date of Service: Nov 17, 2016. Subjective Pt evaluation today including: conversation w/ patient, conversation w/ family , physical exam, lab review, conversation w/ animal nutrition consultant, review of inpatient medication list Pain: less LLQ pain today PO Intake: full liquids Voiding: no voiding problems patient feeling slightly better less pain, tolerating full liquids got a shower today, feels good Problem List Medical Problems: (1) Perforated diverticulum Status: Acute (2) Small bowel obstruction Status: Acute Review of Systems Abdomen: + pain (LLQ) All Other Systems: Reviewed and Negative Medications Current Inpatient Medications Medications (Trade) Dose Ordered Sig/Ric Route Start Time Stop Time Status Last Admin Dose Admin Acetaminophen (Tylenol Tab) 650 mg Q4H PRN PO 11/13/16 14:00 12/13/16 13:59 11/17/16 14:05 650 MG Al Hydrox/Mg Hydrox/Simethicone (Maalox Max Susp) 15 ml Q4H PRN PO 11/13/16 14:00 12/13/16 13:59 Magnesium Hydroxide (Milk Of Magnesia Susp) 30 ml Q6H PRN PO 11/13/16 14:00 12/13/16 13:59 Polyethylene (Miralax Powder Packet) 17 gm DAILY PRN PO 11/13/16 14:45 12/13/16 14:44 Ondansetron HCl (Zofran Inj) 4 mg Q6H PRN IV 11/13/16 14:00 12/13/16 13:59 11/17/16 08:04 4 MG Levothyroxine Sodium (Synthroid Tab) 88 mcg DAILYBB PO 11/14/16 06:00 12/14/16 06:59 11/17/16 06:00 88 MCG Piperacillin Sod/ Tazobactam Sod (Consult) 1 ea UD PRN N/A 11/13/16 14:30 12/13/16 14:29 Metronidazole 500 mg/Prmx 100 ml @ 100 mls/hr Q8H IV 11/14/16 13:00 11/24/16 12:59 11/17/16 13:29 100 MLS/HR Piperacillin Sod/ Tazobactam Sod 3.375 gm/Dextrose 115 ml @ 200 mls/hr Q6 IV 11/14/16 18:00 11/24/16 17:59 11/17/16 12:20 200 MLS/HR Ioversol (Optiray 320) 125 ml UD PRN IV 11/15/16 10:00 11/19/16 09:59 Morphine Sulfate (MoRPHine SULFATE INJ) 4 mg Q3H PRN IV 11/15/16 11:00 11/27/16 13:59 Morphine Sulfate (MoRPHine SULFATE INJ) 2 mg Q2H PRN IV 11/15/16 12:00 11/27/16 13:59 11/17/16 12:20 2 MG Objective Vital Signs Date Time Temp Pulse Resp B/P (MAP) Pulse Ox O2 Delivery O2 Flow Rate FiO2 11/17/16 07:40 Room Air 11/17/16 07:26 36.9 72 20 149/89 (109) 97 Room Air 11/17/16 00:20 Room Air 11/16/16 23:40 36.9 73 16 153/88 (109) 97 Room Air 11/16/16 15:30 96 Room Air 11/16/16 15:10 36.7 65 18 147/95 (112) 96 Room Air Physical Exam General Appearance: WD/WN, no apparent distress Eyes: normal inspection, EOMI, sclerae normal ENT: normal ENT inspection, hearing grossly normal, pharynx normal Neck: supple, no adenopathy, no JVD, trachea midline Respiratory/Chest: chest non-tender, lungs clear, normal breath sounds, no respiratory distress, no accessory muscle use Cardiovascular: regular rate, rhythm, no edema, no gallop, no JVD, no murmur Abdomen: normal bowel sounds, soft, no organomegaly, + tenderness (LLQ, no rebound or rigidity) Extremities: normal range of motion, non-tender, normal inspection, no pedal edema, no calf tenderness, pelvis stable Neurologic/Psychiatric: tape rules printing machine operator II-XII nml as tested, no motor/sensory deficits, alert, normal mood/affect, oriented x 3 Skin: normal color, warm/dry, no rash Laboratory Results Last 24 Hours Test 11/17/16 06:54 White Blood Count 6.68 K/uL Red Blood Count 3.99 M/uL Hemoglobin 13.4 g/dL Hematocrit 39.7 % Mean Corpuscular Volume 99.5 fL Mean Corpuscular Hemoglobin 33.6 pg Mean Corpuscular Hemoglobin Concent 33.8 g/dl RDW Standard Deviation 46.5 fL RDW Coefficient of Variation 12.8 % Platelet Count 201 K/uL Mean Platelet Volume 9.3 fL Sodium Level 138 mmol/L Potassium Level 3.4 mmol/L Chloride Level 107 mmol/L Carbon Dioxide Level 25 mmol/L Anion Gap 6.0 mmol/L Blood Urea Nitrogen 5 mg/dl Creatinine 0.62 mg/dl Est Creatinine Clear Calc Drug Dose 80.9 ml/min Estimated GFR () 105.1 Estimated GFR (Non- 90.7 BUN/Creatinine Ratio 7.3 Random Glucose 114 mg/dl Calcium Level 8.1 mg/dl Assessment and Plan Ms. Gutierrez is a 71 y/o female with PMHx of Hypothyroidism, Mild Cognitive Impairment, and Diverticular Disease with Diverticulitis x 2 who presents with another episode of Diverticulitis Acute Diverticulitis with Microperforation and Possible Partial SBO: continues to improve, advanced to full liquids today - Zosyn 3.375 Q6H and Metronidazole 500 mg IV Q8H, day 5 - Gen Surg following - will defer to them for time and plan of discharge, for now she can avoid any surgical intervention - certainly she will need partial colectomy once this episode resolves Possible Acute Cystitis on CT: - UA unremarkable - likely finding is reactive in setting of diverticulitis Hypothyroidism: - Synthroid 88 mcg daily B/L Lower Extremity Lymphedema: - Aldactone 50 mg daily PRN DVT Prophylaxis: TERESO/SCDs Code Status: FULL RESUSCITATION Disposition: continue IV antibiotics, slowly improving, plan will be to d/c to home on antibiotics once cleared by surgery Continued [facility] stay due to: other (diet advancement and tolerance) Discharge planning: home
[2016-11-17 15:15] VITALS: O2SAT 98
[2016-11-17 15:28] VITALS: BP 145/94; PULSE 71; TEMP 36.5; O2SAT 98
[2016-11-17 15:41] VITALS: BP 142/90
[2016-11-17] MEDS ORDERED: NURSING VERBAL MED ORDER ONE (18:15)
[2016-11-17] MEDS ORDERED: NURSING DECISION MEDICATION ORDER SCH (18:15)
[2016-11-17] MEDS ORDERED: LORAZEPAM 0.5 MG TAB PO ONE (18:30)
[2016-11-17 19:51] VITALS: BP 147/98
[2016-11-17 21:23] LABS: MANUAL MICROSCOPIC REQUIRED? YES; URINE APPEARANCE CLOUDY (CLEAR); URINE COLOR AMBER; URINE NITRITE NEG (NEG); URINE PH 6.5 (4.5-7.5); URINE SPECIFIC GRAVITY 1.025 (1.000-1.030); UROBILINOGEN NEG (NEG)
[2016-11-17 21:40] LABS: REVIEW REQ? NO
[2016-11-17 21:41] LABS: URINE BILIRUBIN NEG (NEG)
[2016-11-17 21:42] LABS: URINE RBC >30 /hpf (0-4)
[2016-11-17 21:43] LABS: URINE BACTERIA 1+ (NEG)
[2016-11-17 22:52] VITALS: BP 132/90; PULSE 76; TEMP 37; O2SAT 96
[2016-11-18] MEDS: METRONIDAZOLE / NSS 500 MG in PREMIXED NSS 100 ML IV SCH ×3 (04:37→20:39)
[2016-11-18] MEDS: LEVOTHYROXINE 88 MCG TAB PO SCH (06:00)
[2016-11-18] MEDS: PIPERACILL/TAZOBAC IV 3.375 GM in DEXTROSE 5% 100ML 100 ML IV SCH ×6 (06:00→23:33)
[2016-11-18 07:03] VITALS: BP 151/87; PULSE 68; TEMP 37; O2SAT 96
[2016-11-18] MEDS: MoRPHine SULFATE 2 MG/ML CARP IV PRN ×3 (07:42→20:39)
--- NOTE | 2016-11-18 09:43 | Surgery Progress Note ---
Surgery Progress Note Date of Service Nov 18, 2016. Subjective Feels better today. Less abdominal pain. Tolerated full liquids. Bowels are functioning. No nausea/ vomiting. Objective Vital Signs: Date Time Temp Pulse Resp B/P (MAP) Pulse Ox O2 Delivery O2 Flow Rate FiO2 11/18/16 07:35 Room Air 11/18/16 07:03 37.0 68 20 151/87 (108) 96 Room Air 11/18/16 00:05 Room Air 11/17/16 22:52 37.0 76 16 132/90 (104) 96 Room Air 11/17/16 19:51 147/98 (114) 11/17/16 15:41 142/90 (107) 11/17/16 15:28 36.5 71 18 145/94 (111) 98 Room Air 11/17/16 15:15 98 Room Air General Appearance: WD/WN, no apparent distress Respiratory/Chest: lungs clear, no respiratory distress Cardiovascular: regular rate, rhythm Abdomen: normal bowel sounds, non tender, non distended, soft, + tenderness Extremities: no pedal edema Laboratory Results: Results Past 24 Hours Test 11/17/16 20:50 Range/Units Urine Color [place] Urine Appearance CLOUDY CLEAR Urine pH 6.5 4.5-7.5 Urine Specific [place] 1.025 1.000-1.030 Urine Protein 3+ NEG Urine Glucose (UA) TRACE NEG Urine Ketones 1+ NEG Urine Occult Blood 3+ NEG Urine Nitrite NEG NEG Urine Bilirubin NEG NEG Urine Urobilinogen NEG NEG Urine Leukocyte Esterase TRACE NEG Urine RBC >30 0-4 /hpf Urine WBC 1-5 0-5 /hpf Urine Epithelial Cells 20-30 0-5 /lpf Urine Calcium Oxalate Crystals PRESENT NONE PRSENT Urine Bacteria 1+ NEG Microbiology Results 11/17/16 Urine Culture, Received Pending Assessment & Plan 71 yr old woman with diverticulitis and microperforation. Slowly improving. Will advance to low fiber diet today. If tolerates, can likely be discharged on PO abx tomorrow.
--- NOTE | 2016-11-18 13:42 | Progress Note ---
Subjective Date of Service: Nov 18, 2016. Subjective Pt evaluation today including: conversation w/ patient, physical exam, lab review, conversation w/ legal consultant, review of inpatient medication list Pain: less PO Intake: tolerating low fiber Voiding: no voiding problems patient doing better, much less pain, no BM today tolerating diet appreciate surgery note, likely okay for d/c tomorrow on PO antibiotics Problem List Medical Problems: (1) Perforated diverticulum Status: Acute (2) Small bowel obstruction Status: Acute Review of Systems Abdomen: + pain (LLQ, less intense) All Other Systems: Reviewed and Negative Medications Current Inpatient Medications Medications (Trade) Dose Ordered Sig/Ric Route Start Time Stop Time Status Last Admin Dose Admin Acetaminophen (Tylenol Tab) 650 mg Q4H PRN PO 11/13/16 14:00 12/13/16 13:59 11/17/16 14:05 650 MG Al Hydrox/Mg Hydrox/Simethicone (Maalox Max Susp) 15 ml Q4H PRN PO 11/13/16 14:00 12/13/16 13:59 Magnesium Hydroxide (Milk Of Magnesia Susp) 30 ml Q6H PRN PO 11/13/16 14:00 12/13/16 13:59 Polyethylene (Miralax Powder Packet) 17 gm DAILY PRN PO 11/13/16 14:45 12/13/16 14:44 Ondansetron HCl (Zofran Inj) 4 mg Q6H PRN IV 11/13/16 14:00 12/13/16 13:59 11/17/16 08:04 4 MG Levothyroxine Sodium (Synthroid Tab) 88 mcg DAILYBB PO 11/14/16 06:00 12/14/16 06:59 11/18/16 06:00 88 MCG Piperacillin Sod/ Tazobactam Sod (Consult) 1 ea UD PRN N/A 11/13/16 14:30 12/13/16 14:29 Metronidazole 500 mg/Prmx 100 ml @ 100 mls/hr Q8H IV 11/14/16 13:00 11/24/16 12:59 11/18/16 04:37 100 MLS/HR Piperacillin Sod/ Tazobactam Sod 3.375 gm/Dextrose 115 ml @ 200 mls/hr Q6 IV 11/14/16 18:00 11/24/16 17:59 11/18/16 12:03 200 MLS/HR Ioversol (Optiray 320) 125 ml UD PRN IV 11/15/16 10:00 11/19/16 09:59 Morphine Sulfate (MoRPHine SULFATE INJ) 4 mg Q3H PRN IV 11/15/16 11:00 11/27/16 13:59 Morphine Sulfate (MoRPHine SULFATE INJ) 2 mg Q2H PRN IV 11/15/16 12:00 11/27/16 13:59 11/18/16 07:42 2 MG Objective Vital Signs Date Time Temp Pulse Resp B/P (MAP) Pulse Ox O2 Delivery O2 Flow Rate FiO2 11/18/16 07:35 Room Air 11/18/16 07:03 37.0 68 20 151/87 (108) 96 Room Air 11/18/16 00:05 Room Air 11/17/16 22:52 37.0 76 16 132/90 (104) 96 Room Air 11/17/16 19:51 147/98 (114) 11/17/16 15:41 142/90 (107) 11/17/16 15:28 36.5 71 18 145/94 (111) 98 Room Air 11/17/16 15:15 98 Room Air Physical Exam General Appearance: WD/WN, no apparent distress Eyes: normal inspection, EOMI, sclerae normal Respiratory/Chest: chest non-tender, lungs clear, normal breath sounds, no respiratory distress, no accessory muscle use Cardiovascular: regular rate, rhythm, no edema, no gallop, no JVD, no murmur Abdomen: normal bowel sounds, soft, no organomegaly, + tenderness (minimal in LLQ, no rebound, no guarding) Extremities: normal range of motion, non-tender, normal inspection, no pedal edema, no calf tenderness, normal capillary refill, pelvis stable Neurologic/Psychiatric: folder taper operator II-XII nml as tested, no motor/sensory deficits, alert, normal mood/affect, oriented x 3 Skin: normal color, warm/dry, no rash Lymphatic: no adenopathy Laboratory Results Last 24 Hours Test 11/17/16 20:50 Urine Color [place] Urine Appearance CLOUDY Urine pH 6.5 Urine Specific [place] 1.025 Urine Protein 3+ Urine Glucose (UA) TRACE Urine Ketones 1+ Urine Occult Blood 3+ Urine Nitrite NEG Urine Bilirubin NEG Urine Urobilinogen NEG Urine Leukocyte Esterase TRACE Urine RBC >30 /hpf Urine WBC 1-5 /hpf Urine Epithelial Cells 20-30 /lpf Urine Calcium Oxalate Crystals PRESENT Urine Bacteria 1+ Assessment and Plan Ms. Gutierrez is a 71 y/o female with PMHx of Hypothyroidism, Mild Cognitive Impairment, and Diverticular Disease with Diverticulitis x 2 who presents with another episode of Diverticulitis Acute Diverticulitis with Microperforation and Possible Partial SBO: minimal symptoms today - advance to low residue diet - Zosyn 3.375 Q6H and Metronidazole 500 mg IV Q8H, day 6 - Gen Surg following - should be okay for d/c to home tomorrow on PO antibiotics , will need 14 days total, Augmentin BID - certainly she will need partial colectomy once this episode resolves she plans to follow up with Dr. Sosa to discuss timing of surgery Possible Acute Cystitis on CT: - UA unremarkable - likely finding is reactive in setting of diverticulitis Hypothyroidism: - Synthroid 88 mcg daily B/L Lower Extremity Lymphedema: - Aldactone 50 mg daily PRN Anxiety: improved with dose of Ativan DVT Prophylaxis: TERESO/SCDs Code Status: FULL RESUSCITATION Disposition: likely for discharge tomorrow as long as she tolerates low fiber diet, check with surgery in the morning Continued [facility] stay due to: other (diet advancement and tolerance) Discharge planning: home
[2016-11-18 15:15] VITALS: BP 145/94; PULSE 69; TEMP 36.9; O2SAT 97
[2016-11-18 23:05] VITALS: BP 145/92; PULSE 74; TEMP 36.8; O2SAT 96
[2016-11-19] MEDS: METRONIDAZOLE / NSS 500 MG in PREMIXED NSS 100 ML IV SCH (04:45)
[2016-11-19] MEDS: LEVOTHYROXINE 88 MCG TAB PO SCH (06:08)
[2016-11-19] MEDS: PIPERACILL/TAZOBAC IV 3.375 GM in DEXTROSE 5% 100ML 100 ML IV SCH (06:08)
[2016-11-19 07:05] VITALS: BP 149/86; PULSE 70; TEMP 37; O2SAT 96
--- NOTE | 2016-11-19 08:29 | Surgery Progress Note ---
Surgery Progress Note Date of Service Nov 19, 2016. Subjective + feeling well, + diet (low fiber), No nausea Objective Vital Signs: Date Time Temp Pulse Resp B/P (MAP) Pulse Ox O2 Delivery O2 Flow Rate FiO2 11/19/16 07:35 Room Air 11/19/16 07:05 37.0 70 15 149/86 (107) 96 Room Air 11/18/16 23:30 Room Air 11/18/16 23:05 36.8 74 16 145/92 (109) 96 Room Air 11/18/16 16:30 Room Air 0.0 11/18/16 15:15 36.9 69 18 145/94 (111) 97 Room Air Abdomen: non tender, non distended, soft Assessment & Plan diverticulitis with microperf improved over the weekend tolerating diet would d/c on Augmentin and Flagyl f/u Dr. Sosa in approx 2 weeks
--- NOTE | 2016-11-19 08:43 | Discharge Instructions ---
Discharge Instructions Date of Service Nov 19, 2016. Admission Reason for Admission: Acute Diverticulitis Discharge Discharge Diagnosis / Problem: Acute Diverticulitis Discharge Goals Goal(s): Decrease discomfort, Improve function, Increase independence Activity Recommendations Activity Limitations: resume your previous activity . Instructions / Follow-Up Instructions / Follow-Up Acute Diverticulitis: - Continue antibiotics to complete a 14 days course. You will take Augmentin twice a day and Flagyl three times a day -- Take evening dose of Augmentin today 11/19 and then resume twice a day tomorrow 11/20 -- Take Flagyl this evening 11/19 then resume three times a day on 11/20 - Continue a low fiber diet and you may resume activity as tolerated - Follow-up with general surgery - Dr. Sosa in 2 weeks Current Hospital Diet Patient's current hospital diet: Low Fiber Diet Discharge Diet Recommended Diet: Low Fiber Diet Pending Studies Studies pending at discharge: no Medical Emergencies . Who to Call and When: Medical Emergencies: If at any time you feel your situation is an emergency, please call 911 immediately. . Non-Emergent Contact Non-Emergency issues call your: Primary Care Provider Call Non-Emergent contact if: you have a fever, your pain is concerning you, you have any medication questions . . "Provider Documentation" section prepared by Melina Sauceda. . Citrix Engineer Recommendations Citrix Engineer Recommendations: pt re-examined. looks /feels much better than this am. ct essentially unchanged. will continue to follow closely. VTE Core Measure Inpt VTE Proph given/why not?: T.E.D. Stockings, SCD's, Contraindicated
[2016-11-19] MEDS ORDERED: AMOX875T PO (11:05)
[2016-11-19] MEDS ORDERED: OXYC-57 PO (11:05)
[2016-11-19] MEDS ORDERED: MTR500 PO (11:05)
[2016-11-19 11:12] VITALS: BP 149/86; PULSE 70; TEMP 37; O2SAT 96
[2016-11-19] MEDS ORDERED: METRONIDAZOLE 500 MG TAB PO SCH (14:00)
--- NOTE | 2016-11-19 16:09 | Discharge Summary ---
Discharge Summary Date of Service Nov 19, 2016. (Melina Sauceda PA-C) Discharge Summary Admission Date: Nov 13, 2016 at 13:58 Discharge Date: Nov 19, 2016 Discharge Disposition: Home Principal Diagnosis: Acute Diverticulitis with Microperforation Problems/Secondary Diagnoses: 1. Hypothyroidism 2. Mild Cognitive Impairment 3. L Breast CA S/P Lumpectomy 4. Diverticulosis with Diverticulitis x 3 - including this admission Immunizations: Have You Had Influenza Vaccine: Yes Influenza Vaccine Date: Jan 26, 2005 History of Tetanus Vaccine?: Unknown History of Pneumococcal: No History of Hepatitis B Vaccine: Unknown Procedures: ABD/PELVIS IV CONTRAST ONLY FINDINGS: Lung bases remain clear. Liver remains uniform. Moderate gallbladder distention. Kidneys enhance uniformly and are in spleen is unremarkable. Scattered colonic diverticulosis. Slight increase in reactive fluid within the right paracolic gutter. Persistent infiltrative change of the soft tissue pelvis with a slight increase in fluid within the pelvic cul-de-sac. A well-defined drainable abscess or collection remains absent. The small extraluminal air component is diminished. Persistent small bowel wall thickening and to a lesser extent wall thickening of the sigmoid appeared to be similar. The small bowel wall thickening is perhaps slightly increased in prominence. Bowel pattern overall is nonobstructive. No evidence for pneumatosis. IMPRESSION: 1. Persistent findings of acute sigmoid diverticulitis with a slightly progressive a component of free fluid within the pelvic cul-de-sac as well as right paracolic gutter. Slightly progressive pelvic infiltrative change. 2. Bowel pattern remains nonobstructive. 3. Mild increase in prominence of a thickened loop of small bowel within the soft tissue pelvis again most likely reactive. 4. No current evidence for a well-defined drainable abscess or collection. 5. Continued close CT monitoring is suggested to exclude early collection formation Consultations: 1. General Surgery (Melina Sauceda PA-C) Medication Reconciliation New Medications: Oxycodone/Acetaminophen 5MG/325MG (Percocet 5MG/325MG) Tab 1 TABLET PO Q6H PRN for Pain for 3 Days, #12 TAB Metronidazole (Metronidazole) 500 Mg Tab 500 MG PO TID, #22 TAB Take one dose on 11/19 then take three times a day on 11/20 Changed Medications: Amoxicillin & Pot Clavulanate (Augmentin 875-125 mg) 1 Tab Tab 1 TAB PO Q12, #15 TABS (Medication details modified) Take on dose this evening on 11/19 then resume twice a day onm 11/20 Continued Medications: Ascorbic Acid (Vitamin C) 500 Mg Tab 1 TAB PO QAM Calcium Carbonate-Vitamin D (Calcium + D) 1 Tab Tab 1 TAB PO QAM Cyanocobalamin (Vitamin B-12) 1,000 Mcg Tab 1000 MCG PO QAM Levothyroxine Sodium (Synthroid) 88 Mcg Tab 88 MCG PO DAILY Discharge Exam Review of Systems: Constitutional: No fever, No chills ENT: No nasal symptoms, No sore throat, No trouble swallowing Respiratory: No cough, No shortness of breath Cardiovascular: No chest pain, No palpitations Abdomen: + pain (minimal LLQ), No nausea, No vomiting Musculoskeletal: No swelling, No calf pain Genitourinary - Female: No dysuria Hematologic / Lymphatic: No abnormal bleeding/bruising Integumentary: No rash Physical Exam: General Appearance: WD/WN, no apparent distress Eyes: sclerae normal ENT: hearing grossly normal Neck: supple, no JVD, trachea midline Respiratory/Chest: lungs clear, normal breath sounds, no respiratory distress, no accessory muscle use Cardiovascular: regular rate, rhythm, no gallop, no murmur Abdomen / GI: normal bowel sounds, non tender, soft Extremities: + swelling (R>L - lymphedema) Neurologic/Psychiatric: alert, oriented x 3 Skin: normal color, warm/dry (Melina Sauceda, FLORECITA) Hospital Course ADMISSION: Patient is a pleasant 71 y/o female, with PMHx of hypothyroidism, mild cognitive impairment, L breast cancer s/p lumpectomy, and h/o diverticular disease w/ acute diverticulitis x2, who presented to the ED because of abdominal pain x1 day. Mid/LLQ abdominal pain started yesterday afternoon around 1400. She had one episode of nausea and vomiting last evening. She has not eating anything today. This is her third episode of diverticulitis. She has discussed colectomy with [facility] surgeon in September, but elected for medical management w/ high fiber diet. She was given Amoxicillin to take at first sign of abdominal pain- she took two yesterday and one today. She called surgeon today and was instructed to come to ED. She has a colonoscopy scheduled for Sept. 16th w/ Dr. Nolasco. Patient denies any fever, chills, sweats, lightheadedness, dizziness, vision changes, CP, palpitations, edema, SOB, wheezing, cough, diarrhea, urinary symptoms, melena, numbness/tingling, weakness , muscle/joint pain, anxiety/depression, active bleeding, or new skin discoloration/changes. HOSPITAL COURSE: Mr. Gutierrez was admitted for acute diverticulitis with microperforation. This was the 3rd episode. She was placed on antibiotics and will finish a course of Augmentin and Flagyl to complete a 14 day course. General Surgery followed and patient is in agreement to consider surgical intervention. She will follow-up as outpatient with Dr. Sosa to plan possible surgical intervention. She is afebrile and without leukocytosis. She is tolerating a low fiber diet and reports minimal pain. On examination, no tenderness on palpation. Patient is optimal for D/C home with outpatient follow- up. Total Time Spent: Greater than 30 minutes This includes examination of the patient, discharge planning, medication reconciliation, and communication with other providers. (Melina Sauceda, VINAYC) Discharge Instructions Please refer to the electronic Patient Visit Report (Discharge Instructions) for additional information. (Melina Sauceda, VINAYC) Additional Copies To Zak Darnell M.D. Reviewed: Pt Seen/Exam by Me (Candi Herrera DO) History Pt is feeling quite well and is eager for d/c. No further abd pain. Has tolerated PO without an issue. No n/v. Agree with HPI/ROS as noted. (Candi Herrera, ) General Appearance: WD/WN, no apparent distress Respiratory: normal breath sounds, no respiratory distress Cardiovascular: normal peripheral pulses, regular rate, rhythm Gastrointestinal: non tender, soft Extremities: non-tender, no pedal edema Neurologic/Psychiatric: alert, normal mood/affect, oriented x 3 Skin Characteristics: normal color, warm/dry (Candi Herrera DO) Assessment/Plan Agree with plan as outlined above Acute sigmoid diverticulitis Managed conservatively with abx F/U with gen surg in 2 weeks Abn UA on admission with cx neg (Candi Herrera DO)
[2016-11-19] MEDS ORDERED: AMOXICILLIN/CLAVULANATE TAB 875 MG TAB PO SCH (17:45)
== END 2016-11-19 12:28 | disposition home or self-care (01) | DRG 392 ==
LOC: C.EDB 10:26 → C.MSW 13:58 → ENRESERV 14:34
PROVIDERS: ADMIT Internal Medicine; ATTEND Family Medicine
DX: K57.20 Diverticulitis of large intestine with perforation and abscess without bleeding (principal); N30.00 Acute cystitis without hematuria; G31.84 Mild cognitive impairment of uncertain or unknown etiology; E03.9 Hypothyroidism, unspecified; Z85.3 Personal history of malignant neoplasm of breast; Z84.1 Family history of disorders of kidney and ureter; Z87.891 Personal history of nicotine dependence

== ENCOUNTER → 2016-12-06 | Outpatient (CLI) | payer BC ==
[~2016-12-06] MED LIST changes: +LEVO88TA PO
[2016-12-06 18:28] LABS: MANUAL MICROSCOPIC REQUIRED? YES; REVIEW REQ? NO; URINE COLOR ORANGE
[2016-12-06 18:29] LABS: SULFASALICYLIC ACID NEG (NEG); URINE APPEARANCE CLEAR (CLEAR); URINE SPECIFIC GRAVITY 1.024 (1.000-1.030)
[2016-12-06 18:41] LABS: URINE BACTERIA NEG (NEG); URINE MUCUS PRESENT (NONE PRSENT); URINE RBC 0-4 /hpf (0-4); ZZUR CULT IF INDIC CLEAN CATCH YES
== END | disposition home or self-care (01) ==
LOC: C.LAB1850 16:32
PROVIDERS: ATTEND Nurse Practitioner Adult Health
DX: R30.0 Dysuria (principal)

== ENCOUNTER → 2016-12-21 | Outpatient (CLI) | payer BC ==
[2016-12-21 13:50] LABS: THYROID STIMULATING HORMONE 0.085 uIu/ml (0.300-4.500)
== END | disposition home or self-care (01) ==
LOC: C.LAB1850 10:57
PROVIDERS: ATTEND Internal Medicine
DX: E03.9 Hypothyroidism, unspecified (principal); L50.1 Idiopathic urticaria

== ENCOUNTER → 2016-12-29 | Outpatient (CLI) | payer BC ==
[~2016-12-29] MED LIST changes: +HYDR-5688 PO; +OMAL150S INJ; +OXYC-57 PO; +SPIR50TA2 PO
[2016-12-29 11:14] LABS: MANUAL MICROSCOPIC REQUIRED? NO; REVIEW REQ? NO; URINE APPEARANCE CLEAR (CLEAR); URINE BILIRUBIN NEG (NEG); URINE COLOR DK YELLOW; URINE NITRITE POS (NEG); URINE SPECIFIC GRAVITY 1.024 (1.000-1.030); UROBILINOGEN NEG (NEG); ZZUR CULT IF INDIC CLEAN CATCH NO
== END | disposition home or self-care (01) ==
LOC: C.LABBC 08:29
PROVIDERS: ATTEND Nurse Practitioner
DX: R30.0 Dysuria (principal)

== ENCOUNTER → 2016-12-31 | Day surgery (SDC) | payer BC, OTHER ==
[2016-11-29 07:58] VITALS: BMI 25.0
[~2016-12-31] VITALS: Ht 170.2 cm; Wt 75.0 kg
[~2016-12-31] MED LIST changes: +LIDOCAINE HCL 2% 2 ML VIAL (20MG/ML) ONE; +PROPOFOL IV EMULSION 10 MG/ML 20 ML VIAL IV ONE
[2016-12-31 10:54] VITALS: Ht 170.2 cm; Wt 75.0 kg
[2016-12-31 11:05] VITALS: TEMP 36.6
--- NOTE | 2016-12-31 11:38 | Endo History and Physical ---
History & Physical Date of Service: Dec 31, 2016. Chief Complaint: Hx diverticulitis Referring Physician: Dr. Darnell History of Present Illness 71 yo CF who presents for colonoscopy secondary to history of diverticulitis. Past Surgical History Hx Cardiac Surgery: No Hx Internal Defibrillator: No Hx Pacemaker: No Hx Abdominal Surgery: No Hx of Implantable Prosthesis: No Hx Post-Op Nausea and Vomiting: No Hx Cancer Surgery: Yes (LT BREAST LUMPECTOMY) Hx Thoracic Surgery: No Hx Orthopedic: Yes (RT TKA) Hx Urinary Tract Surgery: No Family History None Social History Smoking Status: Former Smoker Hx Substance Use: No Hx Alcohol Use: Yes (OCAS) Allergies Coded Allergies: NO KNOWN DRUG ALLERGIES (Verified Allergy, Unknown, NONE, 12/26/16) Nickel (Verified Allergy, Unknown, CAME UP ON ALLERGY TEST, 12/26/16) Current Medications Reported Home Medications Medications Dose Route/Sig Max Daily Dose Days Date Category Xolair (Omalizumab) 150 Mg Earline 150 Mg INJ [id number] 12/26/16 Reported Aldactone (Spironolactone) 50 Mg Tab 50-100 Mg PO QAM PRN 12/26/16 Reported Synthroid (Levothyroxine Sodium) 88 Mcg Tab 88 Mcg PO QAM 11/13/16 Reported Vitamin C (Ascorbic Acid) 500 Mg Tab 1 Tab PO QAM 10/11/16 Reported Vitamin B-12 (Cyanocobalamin) 1,000 Mcg Tab 1,000 Mcg PO QAM 10/11/16 Reported Calcium + D (Calcium Carbonate-Vitamin D) 1 Tab Tab 1 Tab PO BID 04/04/13 Reported Vital Signs Weight (Kilograms): 75.00 Height (Feet): 5 Height (Inches): 7 Date Time Temp Pulse Resp B/P (MAP) Pulse Ox O2 Delivery O2 Flow Rate FiO2 12/31/16 11:05 36.6 54 18 136/71 (92) 97 Room Air Physical Exam General Appearance: WD/WN, no apparent distress Respiratory/Chest: Auscultation: breath sounds normal Cardiovascular: Heart Auscultation: RRR Abdomen: Bowel Sounds: normal Inspection & Palpation: soft, non-distended, no tenderness, guarding & rebound Assessment and Plan Assessment: 71 yo CF who presents for colonoscopy secondary to history of diverticulitis. Plan: Proceed with colonoscopy
--- NOTE | 2016-12-31 12:33 | Discharge Instructions ---
Endoscopy Patient Instructions Date / Procedure(s) Performed Dec 31, 2016. Colonoscopy Allergy Information Coded Allergies: NO KNOWN DRUG ALLERGIES (Verified Allergy, Unknown, NONE, 12/26/16) Nickel (Verified Allergy, Unknown, CAME UP ON ALLERGY TEST, 12/26/16) Discharge Date / Findings Dec 31, 2016. Rectal nodule s/p biopsies Diverticulosis Internal hemorrhoids Medication Instructions OK to resume all medications today as prescribed Reported Home Medications Medications Dose Route/Sig Max Daily Dose Days Date Category Xolair (Omalizumab) 150 Mg Earline 150 Mg INJ [id number] 12/26/16 Reported Aldactone (Spironolactone) 50 Mg Tab 50-100 Mg PO QAM PRN 12/26/16 Reported Synthroid (Levothyroxine Sodium) 88 Mcg Tab 88 Mcg PO QAM 11/13/16 Reported Vitamin C (Ascorbic Acid) 500 Mg Tab 1 Tab PO QAM 10/11/16 Reported Vitamin B-12 (Cyanocobalamin) 1,000 Mcg Tab 1,000 Mcg PO QAM 10/11/16 Reported Calcium + D (Calcium Carbonate-Vitamin D) 1 Tab Tab 1 Tab PO BID 04/04/13 Reported Provider Instructions Activity Restrictions - No exercising or heavy lifting for 24 hours. - Do not drink alcohol the day of the procedure. - Do not drive a car or operate machinery until the day after the procedure. - Do not make any important decisions or sign important papers in 24 hours after the procedure. Following Day: - Return to full activity which may include returning to work/school. Diet Start your diet with liquids and light foods (jello, soup, juice, toast). Then eat your usual diet if not nauseated. Treatment For Common After Affects For mild abdominal pain, bloating, or excessive gas: - Rest - Eat lightly - Lie on right side Follow-Up Information Follow-up with Dr. Darnell as scheduled Anesthesia Information What You Should Know You have had a procedure that required some medicine to reduce anxiety and discomfort. This treatment is called moderate sedation. After receiving the treatment, you may be sleepy, but you will be able to breathe on your own. The effects of the treatment may last for several hours. Follow these instructions along with Activity/Diet recommendations noted above: * Do NOT do anything where dizziness or clumsiness would be dangerous. * Rest quietly at home today, then you can be up and about tomorrow. * Have a responsible person stay with you the rest of today. * You may have had an I.V. today. If so, you may take the dressing off later today. Recommendations Call your doctor if: * Trouble breathing * Continuous vomiting for more than 24 hours * Temperature above 101 degrees * Severe abdominal pain or bloating * Pain not relieved by pain medicine ordered * There is increased drainage or redness from any incision * A large amount of rectal bleeding greater than 2-3 tablespoons. (If you had a polyp/s removed or have hemorrhoids, a small amount of blood - from the rectum is to be expected.) * You have any unanswered questions or concerns. IN THE EVENT OF A SERIOUS EMERGENCY, GO TO THE NEAREST EMERGENCY ROOM Your discharge instructions were prepared by provider Cyrus Nolasco. Patient Instructions Signature Page Guera Gutierrez Patient (or Guardian) Signature/Date: I have read and understand the instructions given to me by my caregivers. Caregiver/RN/Doctor Signature/Date: The above-named patient and/or guardian has received patient instructions on this date. + Original Patient Signature Page (only) stays with chart. Please make copy for patient.
--- NOTE | 2016-12-31 12:38 | GI REPORT ---
Procedure Date: 12/31/2016 11:47 AM Procedure: Colonoscopy Indications: Follow-up of diverticulitis Medicines: Monitored Anesthesia Care Complications: No immediate complications. Estimated Blood Loss: Estimated blood loss: none. Procedure: Pre-Anesthesia Assessment: - Prior to the procedure, a History and Physical was performed, and patient medications and allergies were reviewed. The patient's tolerance of previous anesthesia was also reviewed. The risks and benefits of the procedure and the sedation options and risks were discussed with the patient. All questions were answered, and informed consent was obtained. Prior Anticoagulants: The patient has taken no previous anticoagulant or antiplatelet agents. ASA Grade Assessment: II - A patient with mild systemic disease. After reviewing the risks and benefits, the patient was deemed in satisfactory condition to undergo the procedure. After I obtained informed consent, the scope was passed under direct vision. Throughout the procedure, the patient's blood pressure, pulse, and oxygen saturations were monitored continuously. The scope was introduced through the anus and advanced to the terminal ileum. The colonoscopy was performed with moderate difficulty due to multiple diverticula in the colon. Successful completion of the procedure was aided by using manual pressure. The patient tolerated the procedure well. The quality of the bowel preparation was good. The terminal ileum, ileocecal valve, appendiceal orifice, and rectum were photographed. Findings: Many small-mouthed diverticula were found in the entire colon. Two 4 mm mucosal nodules were found in the rectum. Biopsies were taken with a cold forceps for histology. Non-bleeding internal hemorrhoids were found during retroflexion. The hemorrhoids were small. Impression: - Diverticulosis in the entire examined colon. - Mucosal nodule in the rectum. Biopsied. - Non-bleeding internal hemorrhoids. Recommendation: - Resume previous diet. - Continue present medications. - Repeat colonoscopy for surveillance based on pathology results. - Return to primary care physician as previously scheduled. Cyrus Nolasco DO 12/31/2016 12:37:36 PM This report has been signed electronically. Note Initiated On: 12/31/2016 11:47 AM I attest to the content of the Intraoperative Record and orders documented therein, exceptions below
[2016-12-31 12:55] VITALS: BP 101/72; PULSE 69; O2SAT 95
--- NOTE | 2016-12-31 13:04 | Anesthesiology Progress Note ---
Anesthesia Post Op Note Date & Time Dec 31, 2016 at 13:03 Vital Signs Pain Intensity: 0 Vital Signs Past 12 Hours Date Time Temp Pulse Resp B/P (MAP) Pulse Ox O2 Delivery O2 Flow Rate FiO2 12/31/16 12:41 74 18 141/83 (102) 100 Room Air 12/31/16 12:26 75 18 144/70 (94) 97 Room Air 12/31/16 11:05 36.6 54 18 136/71 (92) 97 Room Air Notes Mental Status: alert / awake / arousable, participated in evaluation Pt Amnestic to Procedure: Yes Nausea / Vomiting: adequately controlled Pain: adequately controlled Airway Patency, RR, SpO2: stable & adequate BP & HR: stable & adequate Hydration State: stable & adequate Anesthetic Complications: no major complications apparent
== END | disposition home or self-care (01) ==
LOC: C.GI 10:45
PROVIDERS: ATTEND Internal Medicine
DX: K62.1 Rectal polyp (principal); K57.30 Diverticulosis of large intestine without perforation or abscess without bleeding; K64.8 Other hemorrhoids; Z87.891 Personal history of nicotine dependence; Z79.899 Other long term (current) drug therapy

== ENCOUNTER → 2017-01-02 | Outpatient (CLI) | payer BC ==
[~2017-01-02] MED LIST changes: -LIDOCAINE HCL 2% 2 ML VIAL (20MG/ML) ONE; -PROPOFOL IV EMULSION 10 MG/ML 20 ML VIAL IV ONE
[2017-01-02 13:19] LABS: URINE APPEARANCE CLEAR (CLEAR); URINE BILIRUBIN NEG (NEG); URINE COLOR YELLOW; URINE EPITHELIAL CELL AUTO >30 /lpf (0-5); URINE NITRITE NEG (NEG); URINE SPECIFIC GRAVITY 1.019 (1.000-1.030); UROBILINOGEN NEG (NEG)
[2017-01-02 13:23] LABS: MANUAL MICROSCOPIC REQUIRED? NO; REVIEW REQ? NO
== END | disposition home or self-care (01) ==
LOC: C.LAB1850 11:52
PROVIDERS: ATTEND Internal Medicine
DX: R30.0 Dysuria (principal)

== ENCOUNTER 2017-01-03 09:05 | Inpatient (IN) | payer BC, OTHER ==
[2016-12-26 09:44] VITALS: BMI 25.0
--- NOTE | 2016-12-26 10:19 | PAT Medication Instructions ---
Service Date Dec 26, 2016. Current Home Medication List Ascorbic Acid (Vitamin C), 1 TAB PO QAM Calcium Carbonate-Vitamin D (Calcium + D), 1 TAB PO BID Cyanocobalamin (Vitamin B-12), 1,000 MCG PO QAM Levothyroxine Sodium (Synthroid), 88 MCG PO QAM Omalizumab (Xolair), 150 MG INJ [id number] Spironolactone (Aldactone), 50-100 MG PO QAM PRN for lap hand tool Instructions For Your Scheduled Surgery - Continue as directed: Omalizumab (Xolair), 150 MG INJ [id number] - Hold the following medications the morning of surgery: Spironolactone (Aldactone), 50-100 MG PO QAM PRN for RN Ascorbic Acid (Vitamin C), 1 TAB PO QAM Calcium Carbonate-Vitamin D (Calcium + D), 1 TAB PO BID Cyanocobalamin (Vitamin B-12), 1,000 MCG PO QAM - Take the following medications the morning of surgery with a sip of water: Levothyroxine Sodium (Synthroid), 88 MCG PO QAM - Take the following medications as scheduled the night before surgery: Calcium Carbonate-Vitamin D (Calcium + D), 1 TAB PO BID If you have any questions please call us at [phone] or [phone] or [phone]
[2016-12-26 11:01] LABS: BASO % 0.2 %; BASO ABS # 0.01 K/uL (0-0.2); COMPLETE YES; EOS % 3.6 %; HEMATOCRIT 41.3 % (37-47); IG% 0.2 %; LYMPH % 20.9 %; LYMPH ABS # 1.35 K/uL (1.2-3.4); MEAN CELL VOLUME 98.6 fL (80-100); MEAN CORPUSCULAR HEMOGLOBIN 32.5 pg (25-34); MEAN CORPUSCULAR HGB CONC 32.9 g/dl (32-36); MEAN PLATELET VOLUME 9.5 fL (7.4-10.4); MONO % 8.8 %; NEUT % 66.3 %; PLATELET COUNT 204 K/uL (130-400); RED BLOOD COUNT 4.19 M/uL (4.2-5.4); WHITE BLOOD COUNT 6.46 K/uL (4.8-10.8)
[2016-12-26 12:28] LABS: BUN/CREATININE RATIO 19.4 (10-20); CALCIUM 9.4 mg/dl (8.5-10.1); CREATININE 0.69 mg/dl (0.60-1.20); POTASSIUM 3.9 mmol/L (3.5-5.1)
[2017-01-03] VITALS (7 sets, daily range): BP systolic 104–134; BP diastolic 64–75; PULSE 51–83; TEMP 36.4–36.7; O2SAT 93–97; Ht 170.2 cm; Wt 72.5 kg
[~2017-01-03] VITALS: Ht 170.2 cm; Wt 72.5 kg
[~2017-01-03 09:05] MED LIST changes: +CEFAZOLIN 2000MG IV PUSH 10 ML IV SCH; +HEPARIN SOD 5000 UNIT/0.5 ML CARP SQ SCH; -HYDR-5688 PO; +LACTATED RINGER'S 1000ML 1,000 ML IV ONE; +LACTATED RINGER'S 1000ML 1,000 ML IV SCH; -OXYC-57 PO
[2017-01-03] MEDS ORDERED: PROPOFOL IV EMULSION 10 MG/ML 20 ML VIAL IV ONE (10:14)
[2017-01-03] MEDS ORDERED: ROCURONIUM BROMIDE 10 MG/ML 5 ML VIAL IV ONE ×2 (10:14→13:38)
[2017-01-03] MEDS ORDERED: LIDOCAINE HCL 2% 2 ML VIAL (20MG/ML) ONE (10:14)
[2017-01-03] MEDS ORDERED: FENTANYL CITRATE INJ 50 MCG/1 ML 2 ML VIAL ONE ×5 (10:15→14:48)
[2017-01-03] MEDS ORDERED: MIDAZOLAM HCL 1 MG/ML 2ML VIAL ONE (10:15)
--- NOTE | 2017-01-03 10:33 | History & Physical Bridge Note ---
H&P Re-Evaluation Bridge Note: I have examined the patient, reviewed the History & Physical and in the interval since the performance of the History & Physical I have noted the following changes of clinical significance: No changes noted
[2017-01-03] MEDS ORDERED: BUPIVACAINE 0.5 % 5 MG/1 ML MPF 30ML VIAL ONE (10:55)
[2017-01-03] MEDS ORDERED: EpINEphrine INJ 1MG/ML AMP 1 MG/ML AMP ONE (10:56)
[2017-01-03] MEDS ORDERED: DEXAMETHASONE SOD INJ 4 MG/ML VIAL ONE (11:47)
[2017-01-03] MEDS ORDERED: ONDANSETRON INJ 2 MG/ML 2 ML VIAL ONE (11:47)
[2017-01-03] MEDS ORDERED: ACETAMINOPHEN 1000 MG/100 ML IV IV ONE (14:48)
[2017-01-03] MEDS ORDERED: GLYCOPYRROLATE INJ 0.2 MG/ML VIAL ONE (15:12)
[2017-01-03] MEDS ORDERED: NEOSTIGMINE METHYLSULFATE 5 MG/5 ML SYR ONE (15:12)
[2017-01-03] MEDS: SODIUM CHLORIDE 0.9% 1000ML 1,000 ML IV SCH (15:17)
[2017-01-03] MEDS ORDERED: HYDROmorphone INJ 1 MG/ML SYR ONE ×2 (15:27→15:42)
[2017-01-03] MEDS ORDERED: ATROPINE SULFATE 0.1 MG/ML 5ML SYR IV PRN (15:30)
[2017-01-03] MEDS ORDERED: EpHEDrine SULFATE INJ 50 MG/ML AMP IV PRN (15:30)
[2017-01-03] MEDS ORDERED: HYDROmorphone INJ 1 MG/ML SYR IV PRN (15:30)
[2017-01-03] MEDS ORDERED: PROMETHAZINE HCL INJ 12.5 MG in SODIUM CHLORIDE 0.9% 50ML 50 ML IV PRN (15:30)
[2017-01-03] MEDS ORDERED: FLUMAZENIL 0.1 MG/1 ML 10 ML VIAL IV PRN (15:30)
[2017-01-03] MEDS ORDERED: ONDANSETRON INJ 2 MG/ML 2 ML VIAL IV PRN ×2 (15:30)
[2017-01-03] MEDS ORDERED: NALOXONE HCL 0.4 MG/1 ML VIAL/CARP IV PRN ×2 (15:30)
[2017-01-03] MEDS ORDERED: HYDROmorphone HCL 0.5MG/ML 50 ML CASSETTE ONE (15:31)
--- NOTE | 2017-01-03 15:32 | [facility] Operative Report ---
Operative Report Operative Date Jan 03, 2017. Pre-Operative Diagnosis Diverticulitis of colon Post-Operative Diagnosis diverticulitis with chronic infection, extensive adhesions, rectal stricture Procedure(s) Performed Laparoscopic low anterior Resection; extensive enterolysis Surgeon Dr. Ssoa Suction Plate Carrier Cleaner Surgeon(s) Charly Wild PA-C/Ford Waller PA-C Estimated Blood Loss 200 cc Findings chronic diverticulitis with small abcess, extensive adhesions, rectal stricture Specimens A: recto-sigmoid colon and additional rectum and anastamosis tissue Drains CHEO into pelvis Anesthesia get Complication(s) None Disposition Recovery Room / PACU Description of Procedure After informed consent was obtained the patient was taken to the operating room and placed in a supine position. After successful intubation the right arm was tucked and the patient was placed in a low lithotomy position with yellowfin stirrups. A Pal catheter was inserted sterilely. The abdomen and perineum were sterilely prepped and draped in usual fashion. A periumbilical incision was made with an 11 blade scalpel and carried down through the soft tissue using anterior rectus fascia was opened using electrocautery and 2 #0 Vicryl stay sutures were placed. Peritoneum was elevated with hemostats and incised under direct vision using a Metzenbaum scissor. A finger sweep was performed and a 12 millimeter Crump trocar was placed. The abdomen was insufflated to 18 mmHg. The laparoscope was inserted and the abdomen was examined in 360. A right lower quadrant 12 mm trocar a right midabdominal 5 mm trocar and a left midabdominal 5 mm trocar were all placed under direct vision. The patient was placed in a Trendelenburg position and slightly airplaned to the right. We immediately noted a large amount of adhesive disease in the lower abdomen involving the small bowel and colon. We used blunt dissection, sharp scissor lysis as well as Harmonic scalpel to take these down. Eventually I was able to work my way into the pelvis and pull all the small bowel out of the pelvis except for one segment which was extremely adherent to the inflamed area of colon. Eventually I was able to gently tease this off but this did reveal some pus indicating a chronic abscess of sorts. There was a questionable small serosal tear so we marked this with a 3-0 Polysorb stitch to be evaluated later after we could exteriorize the bowel. Next we opened the white line of Toldt laterally on the colon the whole way up to the splenic flexure and distally down into the pelvis to the peritoneal reflection. The mesentery and bowel was thickened particularly in the rectosigmoid region. We were able to use a lot of traction /countertraction and small amounts of Harmonic scalpel to completely free this up. I then picked an area of viable bowel near the peritoneal reflection. I made a small window in the mesocolon using the Harmonic scalpel. A TALAT purple cartridge stapler was used to transect the bowel at this point. We then used a Harmonic scalpel to take down the mesentery of the left and sigmoid colon up to the proximal area of viable bowel. We then grabbed the small bowel where we placed a suture and delivered it out of the left midabdominal trocar site. We extended this incision and using electrocautery opened the fascia. We delivered the small bowel exteriorized it and thoroughly evaluated it. There was no evidence of any serosal tears and was rather just a small hematoma and no further intervention was needed. We dunked this back into the abdomen and then pulled out the distal end of the colon to be resected. We clamped off the viable bowel with a bowel clamp and divided the colon and passed it off. We then used 2-0 silk and placed a pursestring stitch. We used sizers an estimated the size of the stapler to be 25 mm. We inserted 25 mm anvil and secured in place using the pursestring. We dunked this back in the abdominal cavity and closed the fascia using 0 PDS in a running fashion. We then reinsufflated the abdomen. We did change our gloves prior to re-start of the second abdominal portion. The left colon with the anvil was nice and loose and laid in the pelvis without any tension. However when we tried to bring in the sizers and the handle of the circular stapler into the rectum we met resistance near the rectal stump. We tried for some time and then evaluated this area with a rigid sigmoidoscope were we found a strictured area of rectum. I attempted to free this up with the Harmonic scalpel by taking down the lateral pedicles and the peritoneal reflection down to probably about 5 or 6 cm from the anal verge. We still were unable to get the handle of the stapler through this area. I made a decision to resect some additional segment rectosigmoid so that we could resect the strictured area and still perform a stapled anastomosis. I freed up the mesentery as well as lateral pedicles and then transected the rectosigmoid again with purple cartridge staplers. This would be placed into an Endo Catch bag and removed at the end of the case. We were then able to advance the handle to the staple line. The spike was deployed. We connected the handle to the anvil and secured them together and fired creating a circular end and anastomosis. We submerged the anastomosis and water and insufflated it with a rigid sigmoidoscope while clamping the proximal colon there was no evidence of any air leak. We then thoroughly irrigated the lower pelvis. There was adequate hemostasis at the end of the case. The anastomosis appeared viable without ischemia. We had two nice donut rings after removing the handle of the stapler. A final washout was performed a final look around the abdomen was performed no other abnormalities were identified. We removed the bag as well as all the trochars. Prior to doing this we did place a 10 flat William-Szymanski drain into the pelvis and brought out through one of the trocar sites and secured to the skin using 2-0 silk. We closed the fascia of the camera port with 0 PDS in running fashion. All the wounds were irrigated and closed using 4 -0 Monocryl. Sterile dressings were applied. The patient was awaken and transferred recovery in stable condition I attest to the content of the Intraoperative Record and any orders documented therein. Any exceptions are noted below.
--- NOTE | 2017-01-03 16:23 | Anesthesiology Progress Note ---
Anesthesia Post Op Note Date & Time Jan 03, 2017 at 16:23 Vital Signs Pain Intensity: 5 Vital Signs Past 12 Hours Date Time Temp Pulse Resp B/P (MAP) Pulse Ox O2 Delivery O2 Flow Rate FiO2 01/03/17 16:20 47 16 147/64 99 Nasal Cannula 2 01/03/17 16:10 53 14 149/76 99 Nasal Cannula 2 01/03/17 16:00 36.4 53 14 157/74 99 Nasal Cannula 2 01/03/17 15:50 49 15 144/66 99 Oxymask 3 01/03/17 15:40 55 14 152/74 99 Oxymask 3 01/03/17 15:30 55 14 143/72 100 Oxymask 5 01/03/17 15:20 36.0 63 15 128/63 99 Oxymask 5 01/03/17 09:58 36.5 83 20 104/75 95 Room Air Notes Mental Status: alert / awake / arousable, participated in evaluation Pt Amnestic to Procedure: Yes Nausea / Vomiting: adequately controlled Pain: adequately controlled Airway Patency, RR, SpO2: stable & adequate BP & HR: stable & adequate Hydration State: stable & adequate Anesthetic Complications: no major complications apparent
[2017-01-03] MEDS: HYDROmorphone HCL 0.5MG/ML 50 ML CASSETTE IV PRN ×2 (16:50→22:52)
[2017-01-03] MEDS: LACTATED RINGER'S 1000ML 1,000 ML IV SCH ×2 (18:57→23:21)
[2017-01-03] MEDS: ACETAMINOPHEN IV 100 ML IV SCH (19:01)
[2017-01-03 19:05] LABS: PROTHROMBIN TIME (PATIENT) 10.5 SECONDS (9.0-12.0)
[2017-01-03] MEDS: CEFOXITIN IV 2,000 MG in DEXTROSE 5% 50ML 50 ML IV SCH ×2 (19:25→23:21)
[2017-01-04] MEDS: ACETAMINOPHEN IV 100 ML IV SCH ×3 (01:52→17:58)
[2017-01-04 03:33] VITALS: BP 129/71; PULSE 79; TEMP 36.9; O2SAT 93
[2017-01-04] MEDS: LEVOTHYROXINE 88 MCG TAB PO SCH (05:36)
[2017-01-04] MEDS: CEFOXITIN IV 2,000 MG in DEXTROSE 5% 50ML 50 ML IV SCH ×2 (05:36→12:33)
[2017-01-04] MEDS: HYDROmorphone HCL 0.5MG/ML 50 ML CASSETTE IV PRN ×4 (06:46→22:58)
[2017-01-04 06:59] LABS: BASO % 0.1 %; BASO ABS # 0.01 K/uL (0-0.2); COMPLETE YES; EOS % 0.2 %; HEMATOCRIT 37.4 % (37-47); IG% 0.1 %; LYMPH % 12.2 %; MEAN CELL VOLUME 98.9 fL (80-100); MEAN CORPUSCULAR HEMOGLOBIN 33.3 pg (25-34); MEAN CORPUSCULAR HGB CONC 33.7 g/dl (32-36); MEAN PLATELET VOLUME 9.5 fL (7.4-10.4); MONO % 10.8 %; NEUT % 76.6 %; PLATELET COUNT 186 K/uL (130-400); RED BLOOD COUNT 3.78 M/uL (4.2-5.4); WHITE BLOOD COUNT 9.81 K/uL (4.8-10.8)
[2017-01-04 07:33] LABS: BUN/CREATININE RATIO 5.4 (10-20); CALCIUM 8.3 mg/dl (8.5-10.1); CREATININE 1.35 mg/dl (0.60-1.20); POTASSIUM 4.1 mmol/L (3.5-5.1)
--- NOTE | 2017-01-04 07:35 | Surgery Progress Note ---
Surgery Progress Note Date of Service Jan 04, 2017. Subjective Post OP Day: 1 + pain controlled, No nausea, No vomiting Objective Vital Signs: Date Time Temp Pulse Resp B/P (MAP) Pulse Ox O2 Delivery O2 Flow Rate FiO2 01/04/17 03:33 36.9 79 17 129/71 (90) 93 Room Air 01/03/17 23:25 Room Air 01/03/17 22:52 36.7 75 16 128/71 (90) 94 Room Air 01/03/17 19:55 71 20 132/69 (90) 94 Room Air 01/03/17 18:55 36.5 60 18 133/72 (92) 97 Nasal Cannula 2.0 01/03/17 17:55 62 18 114/64 (81) 93 Nasal Cannula 2.0 01/03/17 17:30 Nasal Cannula 3.0 01/03/17 17:25 56 18 121/70 (87) 97 Nasal Cannula 2.0 01/03/17 17:00 Nasal Cannula 2.0 01/03/17 16:55 36.4 51 18 134/72 (92) 96 Nasal Cannula 3.0 01/03/17 16:55 Nasal Cannula 3.0 01/03/17 16:40 59 16 129/60 98 Nasal Cannula 2 01/03/17 16:30 52 14 127/63 98 Nasal Cannula 2 01/03/17 16:20 47 16 147/64 99 Nasal Cannula 2 01/03/17 16:10 53 14 149/76 99 Nasal Cannula 2 01/03/17 16:00 36.4 53 14 157/74 99 Nasal Cannula 2 01/03/17 15:50 49 15 144/66 99 Oxymask 3 01/03/17 15:40 55 14 152/74 99 Oxymask 3 01/03/17 15:30 55 14 143/72 100 Oxymask 5 01/03/17 15:20 36.0 63 15 128/63 99 Oxymask 5 01/03/17 09:58 36.5 83 20 104/75 95 Room Air Physical Exam: CHEO drainage (85mL (01/03), 40mL so far today (01/04)) General Appearance: WD/WN, no apparent distress Abdomen: soft, + pertinent finding (tender at surgical incision sites, drain in place (serosang drainage)) Incision(s): clean, dry, intact Laboratory Results: Results Past 24 Hours Test 01/03/17 18:38 01/04/17 06:36 Range/Units Prothrombin Time 10.5 9.0-12.0 SECONDS Prothromb Time International Ratio 1.0 0.9-1.1 White Blood Count 9.81 4.8-10.8 K/uL Red Blood Count 3.78 4.2-5.4 M/uL Hemoglobin 12.6 12.0-16.0 g/dL Hematocrit 37.4 37-47 % Mean Corpuscular Volume 98.9 80-100 fL Mean Corpuscular Hemoglobin 33.3 25-34 pg Mean Corpuscular Hemoglobin Concent 33.7 32-36 g/dl Platelet Count 186 130-400 K/uL Mean Platelet Volume 9.5 7.4-10.4 fL Neutrophils (%) (Auto) 76.6 % Lymphocytes (%) (Auto) 12.2 % Monocytes (%) (Auto) 10.8 % Eosinophils (%) (Auto) 0.2 % Basophils (%) (Auto) 0.1 % Neutrophils # (Auto) 7.51 1.4-6.5 K/uL Lymphocytes # (Auto) 1.20 1.2-3.4 K/uL Monocytes # (Auto) 1.06 0.11-0.59 K/uL Eosinophils # (Auto) 0.02 0-0.5 K/uL Basophils # (Auto) 0.01 0-0.2 K/uL RDW Standard Deviation 49.2 36.4-46.3 fL RDW Coefficient of Variation 13.7 11.5-14.5 % Immature Granulocyte % (Auto) 0.1 % Immature Granulocyte # (Auto) 0.01 0.00-0.02 K/uL Assessment & Plan POD #1 s/p Laparoscopic low anterior Resection; extensive enterolysis Patient doing fairly well this AM- no complaints overnight Pain controlled with SLOT FLOORPERSON, IV Tylenol Vital signs stable Sips and chips diet- tolerating well. Continue aguilar. Continue CHEO drain.
[2017-01-04] MEDS ORDERED: INFLUENZA ADMINISTRATION CHARGE ONE (08:00)
[2017-01-04] MEDS ORDERED: INFLUENZA VACCINE HIGH DOSE 65+ 0.5 ML SYR IM. ONE (08:00)
[2017-01-04] MEDS: ENOXAPARIN 40 MG/0.4 ML SYR SQ SCH (08:02)
[2017-01-04] MEDS: LACTATED RINGER'S 1000ML 1,000 ML IV SCH ×2 (08:02→17:04)
[2017-01-04 08:09] VITALS: PULSE 72; TEMP 36.5; O2SAT 93
[2017-01-04] MEDS ORDERED: NURSING VERBAL MED ORDER ONE (08:30)
--- NOTE | 2017-01-04 08:41 | Anesthesiology Progress Note ---
Anesthesia Post Op Note Date & Time Jan 04, 2017 at 08:41 Vital Signs Pain Intensity: 7.0 Vital Signs Past 12 Hours Date Time Temp Pulse Resp B/P (MAP) Pulse Ox O2 Delivery O2 Flow Rate FiO2 01/04/17 08:09 36.5 72 20 93 Room Air 01/04/17 07:49 Room Air 01/04/17 03:33 36.9 79 17 129/71 (90) 93 Room Air 01/03/17 23:25 Room Air 01/03/17 22:52 36.7 75 16 128/71 (90) 94 Room Air Notes Mental Status: alert / awake / arousable, participated in evaluation Pt Amnestic to Procedure: Yes Nausea / Vomiting: adequately controlled Pain: adequately controlled Airway Patency, RR, SpO2: stable & adequate BP & HR: stable & adequate Hydration State: stable & adequate Anesthetic Complications: no major complications apparent
[2017-01-04 09:02] VITALS: BP 134/68
--- NOTE | 2017-01-04 10:49 | Clinical Documentation Query ---
CLINICAL DOCUMENTATION QUERY Dr. HUNTER, In your clinical opinion is this patient being managed for: ( ) Acute kidney injury ( ) Not Agree ( ) Other explanation of clinical findings (Please Explain) ( ) Unable to determine (Please Define) ( ) Need to Discuss The medical record reflects the following clinical findings, treatment, and risk factors. Clinical Indicators: 71 yo female presenting with chronic diverticulitis for a colon resection. Baseline Cr 0.69 which has trended up to Cr 1.35. EBL 200 cc Treatment: IV fluids, daily PRP's Risk Factors: age, surgical blood loss Acute Kidney Injury is defined as any of the following: o Increase in SCr by (>/=) 0.3 mg/dl within 48 hours; or o Increase in SCr to (>/=)1.5 times baseline, which is known or presumed to have occurred within the prior 7 days; or o Urine volume <0.5 ml/kg/h for 6 hours. Please clarify and document your clinical opinion in the progress notes and discharge summary. Terms such as "probable", "suspected", "likely", "questionable", "possible", or "still to be ruled out" are acceptable. IF IN AGREEMENT, YOU MUST DOCUMENT ABOVE DIAGNOSTIC STATEMENT IN DAILY PROGRESS NOTES AND DISCHARGE SUMMARY. This document is not part of the patient's record. Thank You, Annette Jackson, RN [phone]
[2017-01-04 11:50] VITALS: BP 132/71; PULSE 62; TEMP 36.8; O2SAT 94
[2017-01-04 15:00] VITALS: BP 123/75; PULSE 65; TEMP 36.5; O2SAT 96
[2017-01-04] MEDS: SODIUM CHLORIDE 0.9% 1000ML 1,000 ML IV SCH (15:17)
[2017-01-04 22:47] VITALS: BP 121/66; PULSE 79; TEMP 36.8; O2SAT 94
[2017-01-05] MEDS: LACTATED RINGER'S 1000ML 1,000 ML IV SCH ×3 (00:01→19:33)
[2017-01-05] MEDS: ACETAMINOPHEN IV 100 ML IV SCH ×3 (02:12→17:49)
[2017-01-05 03:55] VITALS: BP 123/71; PULSE 80; TEMP 36.7; O2SAT 93
[2017-01-05] MEDS: LEVOTHYROXINE 88 MCG TAB PO SCH (06:16)
[2017-01-05 06:37] LABS: BASO % 0.1 %; BASO ABS # 0.01 K/uL (0-0.2); COMPLETE YES; EOS % 1.3 %; HEMATOCRIT 35.8 % (37-47); IG% 0.1 %; LYMPH % 19.2 %; LYMPH ABS # 1.34 K/uL (1.2-3.4); MEAN CELL VOLUME 100.8 fL (80-100); MEAN CORPUSCULAR HGB CONC 32.7 g/dl (32-36); MEAN PLATELET VOLUME 9.3 fL (7.4-10.4); MONO % 11.8 %; NEUT % 67.5 %; PLATELET COUNT 175 K/uL (130-400); RED BLOOD COUNT 3.55 M/uL (4.2-5.4); WHITE BLOOD COUNT 6.97 K/uL (4.8-10.8)
[2017-01-05 06:58] VITALS: BP 152/93; PULSE 75; TEMP 36.9; O2SAT 94
[2017-01-05] MEDS: HYDROmorphone HCL 0.5MG/ML 50 ML CASSETTE IV PRN ×3 (07:12→23:17)
[2017-01-05 07:18] LABS: BUN/CREATININE RATIO 10.9 (10-20); CALCIUM 8.1 mg/dl (8.5-10.1); CREATININE 0.55 mg/dl (0.60-1.20)
[2017-01-05] MEDS: ENOXAPARIN 40 MG/0.4 ML SYR SQ SCH (09:32)
--- NOTE | 2017-01-05 10:24 | SURGERY PROGRESS NOTE ---
DATE: 01/05/[address] Sosa. Guera is 48 hours postoperative laparoscopic resection of recurrent diverticulitis. She is alert, coherent. Her is at the bedside. Her last vitals showed a temperature of 36.9, pulse 75, respirations 16, blood pressure 152/93, O2 sat is 94 on room air. I&O she had 700 urine overnight. Tonio drainage is about 90 mL, it is serous, slightly sanguineous. The abdomen is completely benign. There is some drainage on the dressing at the Tonio drain site that were removed. At this point, she is doing well. We will increase her diet and discontinue the Pal.
[2017-01-05 11:50] VITALS: BP 146/90; PULSE 85; TEMP 36.8; O2SAT 92
[2017-01-05] MEDS: SODIUM CHLORIDE 0.9% 1000ML 1,000 ML IV SCH (13:15)
[2017-01-05 14:57] VITALS: BP 150/81; PULSE 78; TEMP 36.9; O2SAT 93
[2017-01-05 19:22] VITALS: BP 154/92; PULSE 74; TEMP 37; O2SAT 93
[2017-01-05 23:45] VITALS: BP 155/76; PULSE 69; TEMP 36.6; O2SAT 94
[2017-01-06] MEDS: ACETAMINOPHEN IV 100 ML IV SCH ×3 (02:02→18:00)
[2017-01-06 03:31] VITALS: BP 148/82; PULSE 75; TEMP 36.8; O2SAT 96
[2017-01-06] MEDS: LEVOTHYROXINE 88 MCG TAB PO SCH (05:42)
[2017-01-06] MEDS: HYDROmorphone HCL 0.5MG/ML 50 ML CASSETTE IV PRN (06:53)
[2017-01-06 06:59] VITALS: BP 171/68; PULSE 71; TEMP 36.8; O2SAT 96
[2017-01-06 06:59] LABS: BASO % 0.2 %; BASO ABS # 0.01 K/uL (0-0.2); COMPLETE YES; EOS % 4.5 %; HEMATOCRIT 34.2 % (37-47); IG% 0.2 %; LYMPH % 20.5 %; LYMPH ABS # 1.09 K/uL (1.2-3.4); MEAN CELL VOLUME 99.4 fL (80-100); MEAN CORPUSCULAR HEMOGLOBIN 32.6 pg (25-34); MEAN CORPUSCULAR HGB CONC 32.7 g/dl (32-36); MEAN PLATELET VOLUME 9.5 fL (7.4-10.4); NEUT % 61.6 %; PLATELET COUNT 167 K/uL (130-400); RED BLOOD COUNT 3.44 M/uL (4.2-5.4); WHITE BLOOD COUNT 5.31 K/uL (4.8-10.8)
[2017-01-06 07:31] LABS: BUN/CREATININE RATIO 9.5 (10-20); CREATININE 0.43 mg/dl (0.60-1.20); POTASSIUM 3.5 mmol/L (3.5-5.1)
--- NOTE | 2017-01-06 07:31 | SURGERY PROGRESS NOTE ---
DATE: 01/06/2017 Guera is doing very well. She had a good day yesterday. She even had a bowel movement which was liquid. She tolerated some liquid diet. Her last vitals showed a temperature of 36.8, a pulse 75, respirations 16, blood pressure 148/82, O2 sats 96 on room air. The lab is pending this morning. Abdomen is completely benign. Her urine output, she had 850 overnight. William-Szymanski drainage is serous, slightly sanguineous at 55. At this point we will cut down her IV because she states she has frequent urination with no burning and will increase to a low fiber diet.
[2017-01-06] MEDS: ENOXAPARIN 40 MG/0.4 ML SYR SQ SCH (08:42)
[2017-01-06] MEDS: OXYCODONE/ACETAMINOPHEN 5-325 TAB PO PRN ×3 (09:28→23:51)
[2017-01-06 11:45] VITALS: BP 146/85
[2017-01-06 14:52] VITALS: BP 149/79; PULSE 78; TEMP 36.6; O2SAT 96
[2017-01-06 23:05] VITALS: BP 137/88; PULSE 69; TEMP 36.2; O2SAT 97
[2017-01-07] MEDS: ACETAMINOPHEN IV 100 ML IV SCH (02:00)
[2017-01-07] MEDS: LEVOTHYROXINE 88 MCG TAB PO SCH (05:57)
[2017-01-07 07:10] VITALS: BP 156/76; PULSE 71; TEMP 36.8; O2SAT 96
[2017-01-07] MEDS ORDERED: OXYC-57 PO (08:21)
--- NOTE | 2017-01-07 08:23 | Discharge Instructions ---
Discharge Instructions Date of Service Jan 07, 2017. Admission Reason for Admission: Diverticulitis Of Colon Discharge Discharge Diagnosis / Problem: laparoscopic sigmoid resection Discharge Goals Goal(s): Improve disease control Activity Recommendations Activity Limitations: as noted below Lifting Limitations: no more than 10 pounds Shower/Bathe: no limitations Driving or Machine Use: resume 3 days after discharge . Instructions / Follow-Up Instructions / Follow-Up Dr. Sosa in 1-2 weeks, call [phone] if you do not already have an appt or have any questions Current Hospital Diet Patient's current hospital diet: Low Fiber Diet Discharge Diet Recommended Diet: Low Fiber Diet, Low Fat Diet Procedures Procedures Performed: Laparoscopic low anterior Resection; extensive enterolysis Pending Studies Studies pending at discharge: no Medical Emergencies . Who to Call and When: Medical Emergencies: If at any time you feel your situation is an emergency, please call 911 immediately. . Non-Emergent Contact Non-Emergency issues call your: Surgeon Call Non-Emergent contact if: you have a fever, temperature is above 101.5, your pain is not controlled, wound has increased redness, wound has increased pain, you have any medication questions . "Provider Documentation" section prepared by Aneudy Auguste. . VTE Core Measure Inpt VTE Proph given/why not?: Enoxaparin (Lovenox)SQ, SCD's
[2017-01-07] MEDS ORDERED: HYDR-5688 PO (08:42)
--- NOTE | 2017-01-07 08:44 | Surgery Progress Note ---
Surgery Progress Note Date of Service Jan 07, 2017. Subjective Post OP Day: 4 + feeling well, + bowel movement, + pain controlled, + diet (low fiber), No nausea Objective Vital Signs: Date Time Temp Pulse Resp B/P (MAP) Pulse Ox O2 Delivery O2 Flow Rate FiO2 01/07/17 07:10 36.8 71 19 156/76 (102) 96 Room Air 01/07/17 07:00 Room Air 01/06/17 23:50 Room Air 01/06/17 23:05 36.2 69 18 137/88 (104) 97 Room Air 01/06/17 15:20 Room Air 01/06/17 14:52 36.6 78 18 149/79 (102) 96 Room Air 01/06/17 11:45 146/85 (105) Physical Exam: CHEO drainage (25 cc) Abdomen: non distended, soft Incision(s): clean, dry Assessment & Plan s/p lap LAR d/c drain ok for discharge seen with Dr. Sosa
[2017-01-07 08:55] VITALS: BP 156/76; PULSE 71; TEMP 36.8; O2SAT 96
[2017-01-07] MEDS: ENOXAPARIN 40 MG/0.4 ML SYR SQ SCH (09:00)
--- NOTE | 2017-01-07 15:25 | DISCHARGE SUMMARY ---
PRIMARY DISCHARGE DIAGNOSIS: Diverticulitis with chronic infection, extensive adhesions and rectal stricture. SECONDARY DISCHARGE DIAGNOSIS: Hypothyroidism. PROCEDURE PERFORMED: Laparoscopic low anterior resection with extensive enterolysis. HOSPITAL COURSE: The patient is a 71-year-old female who was recently admitted for diverticulitis, now brought in through same day and taken to the operating room for a laparoscopic sigmoid colectomy. She did have a rectal stricture. An additional low anterior resection was performed. The procedure was well tolerated. She was transferred to the surgical floor. Dilaudid CLINICAL REHABILITATION COORDINATOR was used for initial analgesia. On postoperative day #1, Lovenox was added and SCDs for DVT prophylaxis. Perioperative antibiotics were continued for 24 hours. Pal was continued until postoperative day 2. She did not have any difficulties voiding after it was removed. She was started on clear liquids on day 2. By day 3, she was having liquid bowel movements. Her diet was advanced. By day 4, her bowel movements were forming. She was tolerating a low-residue diet. Her pain was managed with oral analgesics. Her H&H was stable at 11 and 34. Her incisions were dry. CHEO drainage was 25 mL overnight and the drain was removed. She was stable for discharge at that time. DISCHARGE INSTRUCTIONS: Discharge home. Follow up with Dr. Sosa in approximately 2 weeks as planned. DISCHARGE MEDICATIONS: [place] 1-2 tablets every 4 hours as needed. Continue her home vitamin C supplement, calcium and vitamin D supplement, Synthroid 88 mcg daily, Xolair 150 mg injection monthly and Aldactone 50-100 mg daily as needed.
== END 2017-01-07 09:55 | disposition home or self-care (01) | DRG 330 ==
LOC: C.ACU 09:05 → C.MSW 15:22 → ENRESERV 16:19
PROVIDERS: ADMIT Surgery; ATTEND Surgery
PROC: 0DNE4ZZ Release Large Intestine, Percutaneous Endoscopic Approach (ICD-10-PCS; principal; 2017-01-03 11:15)
PROC: 0DN84ZZ Release Small Intestine, Percutaneous Endoscopic Approach (ICD-10-PCS; principal; 2017-01-03 11:15)
PROC: 0DBN4ZZ Excision of Sigmoid Colon, Percutaneous Endoscopic Approach (ICD-10-PCS; principal; 2017-01-03 11:15)
DX: K57.20 Diverticulitis of large intestine with perforation and abscess without bleeding (principal); K66.0 Peritoneal adhesions (postprocedural) (postinfection); K62.4 Stenosis of anus and rectum; J45.909 Unspecified asthma, uncomplicated; E03.9 Hypothyroidism, unspecified; L50.1 Idiopathic urticaria; M19.90 Unspecified osteoarthritis, unspecified site; F01.50 Vascular dementia, unspecified severity, without behavioral disturbance, psychotic disturbance, mood disturbance, and anxiety; Z96.651 Presence of right artificial knee joint; Z87.891 Personal history of nicotine dependence; Z79.899 Other long term (current) drug therapy

== ENCOUNTER → 2017-03-13 | Outpatient (CLI) | payer BC ==
[~2017-03-13] MED LIST changes: -CEFAZOLIN 2000MG IV PUSH 10 ML IV SCH; +CEPH500C2 PO; +CIPR1TAB10 PO; -CYAN10005 PO; +DTR/5 PO; +FESO8TAB PO; -HEPARIN SOD 5000 UNIT/0.5 ML CARP SQ SCH; +HYDR-5688 PO; -LACTATED RINGER'S 1000ML 1,000 ML IV ONE; -LACTATED RINGER'S 1000ML 1,000 ML IV SCH; +MISCCAP80 PO; +MULT-506 PO; +OXYC-57 PO; +OXYC7.5T65 PO; +PHEN-775 PO; +TRAM-10 PO
== END | disposition home or self-care (01) ==
LOC: C.LAB1850 13:37
PROVIDERS: ATTEND Physician Assistant
DX: R30.9 Painful micturition, unspecified (principal)

== ENCOUNTER → 2017-04-22 | Day surgery (SDC) | payer BC ==
[2017-04-01 12:11] VITALS: BMI 26.0
--- NOTE | 2017-04-01 12:36 | PAT Medication Instructions ---
Service Date Apr 01, 2017. Current Home Medication List Ascorbic Acid (Vitamin C), 1 TAB PO QAM Calcium Carbonate-Vitamin D (Calcium + D), 1 TAB PO BID Levothyroxine Sodium (Synthroid), 88 MCG PO QAM Omalizumab (Xolair), 150 MG INJ [id number] Probiotic Product (Probiotic), 1 TAB PO QAM Spironolactone (Aldactone), 50-100 MG PO QAM PRN for gyro mechanic Instructions For Your Scheduled Surgery -Continue as directed: Omalizumab (Xolair), 150 MG INJ [id number] - Hold the following medications the morning of surgery: Calcium Carbonate-Vitamin D (Calcium + D), 1 TAB PO BID Ascorbic Acid (Vitamin C), 1 TAB PO QAM Probiotic Product (Probiotic), 1 TAB PO QAM Spironolactone (Aldactone), 50-100 MG PO QAM PRN for RN - Take the following medications the morning of surgery with a sip of water: Levothyroxine Sodium (Synthroid), 88 MCG PO QAM - Take the following medications as scheduled the night before surgery: Calcium Carbonate-Vitamin D (Calcium + D), 1 TAB PO BID Spironolactone (Aldactone), 50-100 MG PO QAM PRN for RN (if needed) If you have any questions please call us at [phone] or [phone] or [phone]
[2017-04-01 13:05] LABS: BASO % 0.3 %; BASO ABS # 0.02 K/uL (0-0.2); EOS % 5.6 %; EOS ABS # 0.37 K/uL (0-0.5); HEMOGLOBIN 13.5 g/dL (12.0-16.0); IG# 0.01 K/uL (0.00-0.02); LYMPH % 21.5 %; LYMPH ABS # 1.42 K/uL (1.2-3.4); MEAN CORPUSCULAR HEMOGLOBIN 33.8 pg (25-34); MEAN CORPUSCULAR HGB CONC 33.8 g/dl (32-36); MEAN PLATELET VOLUME 9.8 fL (7.4-10.4); MONO % 8.5 %; MONO ABS # 0.56 K/uL (0.11-0.59); NEUT % 63.9 %; NEUT ABS # 4.22 K/uL (1.4-6.5); PLATELET COUNT 190 K/uL (130-400); RED CELL DISTRIBUTION WIDTH CV 12.7 % (11.5-14.5); RED CELL DISTRIBUTION WIDTH SD 46.5 fL (36.4-46.3)
--- NOTE | 2017-04-01 13:09 | DIAGNOSTIC IMAGING REPORT ---
TWO VIEW CHEST CLINICAL HISTORY: Preoperative examination. FINDINGS: PA and lateral chest radiographs are compared to study dated 04/04/2013. The cardiomediastinal silhouette is unremarkable. There is atherosclerotic calcification of the thoracic aorta. Emphysematous changes suspected. Chronic interstitial thickening is similar to previous. No airspace consolidation or pleural effusion is identified. There is no pneumothorax. The skeletal structures are osteopenic. Degenerative change is noted in the thoracic spine. IMPRESSION: 1. No active disease in the chest. 2. Emphysematous change is suspected. Electronically signed by: Mariusz Kaufman M.D. 04/01/2017 1:07 PM Dictated Date/Time: 04/01/2017 1:06 PM
[2017-04-01 13:32] LABS: CALCIUM 9.6 mg/dl (8.5-10.1); CREATININE 0.7 mg/dl (0.60-1.20); POTASSIUM 4.1 mmol/L (3.5-5.1)
[~2017-04-22] VITALS: Ht 170.2 cm; Wt 76.1 kg
[~2017-04-22] MED LIST changes: +ATROPINE SULFATE 0.1 MG/ML 5ML SYR IV PRN; -CIPR1TAB10 PO; +CIPROFLOXACIN / D5W 400 MG IV SCH; +DEXAMETHASONE SOD INJ 4 MG/ML VIAL ONE; -DTR/5 PO; +FENTANYL CITRATE INJ 50 MCG/1 ML 2 ML VIAL ONE; -HYDR-5688 PO; +LABETALOL HCL IV 5 MG/ML 20ML IV PRN; +LACTATED RINGER'S 1000ML 1,000 ML IV SCH; +LIDOCAINE HCL 2% 2 ML VIAL (20MG/ML) ONE; +ONDANSETRON INJ 2 MG/ML 2 ML VIAL IV PRN; +ONDANSETRON INJ 2 MG/ML 2 ML VIAL ONE; -OXYC7.5T65 PO; +OXYCODONE/ACETAMINOPHEN 7.5-325 TAB PO PRN; +PROPOFOL IV EMULSION 10 MG/ML 20 ML VIAL IV ONE; -TRAM-10 PO
[2017-04-22 06:05] VITALS: BP 150/88; PULSE 78; TEMP 37.3; O2SAT 94; Ht 170.2 cm; Wt 76.1 kg
--- NOTE | 2017-04-22 07:07 | Discharge Instructions ---
Discharge Instructions Date of Service Apr 22, 2017. Admission Reason for Admission: Gross Hematuria Discharge Discharge Diagnosis / Problem: Gross Hematuria Discharge Goals Goal(s): Decrease discomfort, Improve function Activity Recommendations Activity Limitations: resume your previous activity Lifting Limitations: no more than 25 pounds Exercise/Sports Limitations: as tolerated, gradually increase as tolerated Shower/Bathe: no limitations . Instructions / Follow-Up Instructions / Follow-Up May have blood in urine. May have pelvic discomfort. Call if any issues or concerns. Current Hospital Diet Patient's current hospital diet: Discharge Diet Recommended Diet: Regular Diet Procedures Procedures Performed: Cysto, biopsy Pending Studies Studies pending at discharge: no Medical Emergencies . Who to Call and When: Medical Emergencies: If at any time you feel your situation is an emergency, please call 911 immediately. . Non-Emergent Contact Non-Emergency issues call your: Primary Care Provider, Urologist Call Non-Emergent contact if: you have a fever, temperature is above 101, temperature is above 101.5, your pain is not controlled, your pain is worsening . . "Provider Documentation" section prepared by Christ Cortez,. . VTE Core Measure Inpt VTE Proph given/why not?: SCD's
--- NOTE | 2017-04-22 07:39 | [facility] Operative Report ---
Operative Report Operative Date Apr 22, 2017. Pre-Operative Diagnosis Bladder Lesion, Gross Hematuria Post-Operative Diagnosis Same Procedure(s) Performed Cystoscopy with biopsy and fulguration Surgeon Diego Estimated Blood Loss Minimal Findings Small lesion of bladder. Specimens 3 x Posterior Left Biopsy bladder wall Drains None Anesthesia Type General Complication(s) none Disposition Recovery Room / PACU Indications Patient found to have lesion of bladder during workup for gross hematuria. Risks and benefits discussed at length. Description of Procedure Patient was consented and brought back to the operating room. Patient was placed under anesthesia in the supine position and moved to the dorsal lithotomy position. Patient was prepped and draped in the regular sterile fashion. A time out was completed. A 30degree Cystoscope was placed into the bladder and the entire bladder was examined. The UO's were identified. The small lesions were identified and biopsies completed. The area was fulgurated and all bleeding controlled. Without other areas of concern or other issues, the bladder was once more inspected. The bladder was emptied. The scope was removed. The patient was cleaned, aroused from anesthesia, and transferred to the pacu in stable condition having tolerated the procedure well with no complications. I was present and participated in all aspects of the procedure. The patient will be monitored in the PACU until transferred. I attest to the content of the Intraoperative Record and any orders documented therein. Any exceptions are noted below.
[2017-04-22] MEDS: FENTANYL CITRATE INJ 50 MCG/1 ML 2 ML VIAL IV PRN ×3 (08:05→08:15)
[2017-04-22 08:40] VITALS: BP 148/82; PULSE 83; TEMP 36.6; O2SAT 97
--- NOTE | 2017-04-22 08:42 | Anesthesiology Progress Note ---
Anesthesia Post Op Note Date & Time Apr 22, 2017 at 08:42 Vital Signs Vital Signs Past 12 Hours Date Time Temp Pulse Resp B/P (MAP) Pulse Ox O2 Delivery O2 Flow Rate FiO2 04/22/17 08:25 71 16 163/89 97 Nasal Cannula 2 04/22/17 08:15 36.4 74 16 155/89 97 Nasal Cannula 2 04/22/17 08:05 76 16 128/92 96 Nasal Cannula 2 04/22/17 07:55 78 16 141/81 97 Nasal Cannula 2 04/22/17 07:48 36.5 70 16 126/80 96 Nasal Cannula 2 04/22/17 06:05 37.3 78 16 150/88 (108) 94 Room Air Notes Mental Status: alert / awake / arousable, participated in evaluation Pt Amnestic to Procedure: Yes Nausea / Vomiting: adequately controlled Pain: adequately controlled Airway Patency, RR, SpO2: stable & adequate BP & HR: stable & adequate Hydration State: stable & adequate Anesthetic Complications: no major complications apparent
[2017-04-22 09:10] VITALS: BP 157/74; PULSE 80; TEMP 36.6; O2SAT 95
[2017-04-22 09:40] VITALS: BP 156/74; PULSE 82; TEMP 36.6; O2SAT 94
--- NOTE | 2017-04-24 12:15 | EDITING REQUIRED CODING QUERY ---
CODING QUERY To promote full compliance with coding requirements relating to patient care, provider participation is requested in all cases of electrical worker uncertainty. Please assist us with the question(s) below: Coding Question(s): Please clarify the size of the lesion(s) biopsied 3.1cm. Physician's Response(s): Thank you Kavita Kobe [place] Principal Diagnosis: "_that condition established after study, to be chiefly responsible for occasioning the admission of the patient to the hospital for care." Co-Existing Principal Diagnosis: "_when two or more diagnoses equally meet the criteria for principal diagnosis as determined by the circumstances of admission, diagnostic work up, and/or therapy provided, and the Alphabetic Index, Tabular List, or another coding guideline does not provide sequencing direction, any one of the diagnoses may be sequenced first." "When the physician has documented what appears to be a current diagnosis in the body of the record, but has not included the diagnosis in the final diagnostic statement, the physician should be asked whether the diagnosis should be added." (Source [facility] 2 QTR90. p3-4)
== END | disposition home or self-care (01) ==
LOC: C.ACU 05:25
PROVIDERS: ATTEND Urology
DX: C67.4 Malignant neoplasm of posterior wall of bladder (principal); D09.0 Carcinoma in situ of bladder; N32.9 Bladder disorder, unspecified; R31.0 Gross hematuria; R30.0 Dysuria; N39.0 Urinary tract infection, site not specified; E03.9 Hypothyroidism, unspecified; Z98.890 Other specified postprocedural states; Z98.49 Cataract extraction status, unspecified eye; Z96.659 Presence of unspecified artificial knee joint; Z87.2 Personal history of diseases of the skin and subcutaneous tissue; Z87.09 Personal history of other diseases of the respiratory system; Z87.891 Personal history of nicotine dependence; Z80.1 Family history of malignant neoplasm of trachea, bronchus and lung

== ENCOUNTER → 2017-05-16 | Day surgery (SDC) | payer BC ==
[2017-05-03 09:34] VITALS: BMI 25.0
[~2017-05-16] VITALS: Ht 170.2 cm; Wt 73.0 kg
[~2017-05-16] MED LIST changes: +DTR/5 PO; +ESMOLOL HCL 10 MG/ML 10 ML VIAL ONE; +EpHEDrine SULFATE INJ 50 MG/ML AMP IV PRN; +FENTANYL CITRATE INJ 50 MCG/1 ML 2 ML VIAL IV PRN; -FESO8TAB PO; +HYDROmorphone INJ 1 MG/ML SYR IV PRN; -LACTATED RINGER'S 1000ML 1,000 ML IV SCH; +MEPERIDINE HCL 25 MG/ML CARP IV PRN; +MITOMYCIN FOR INJ 40 MG in SYRINGE 40 ML IR SCH; +NON-FORMULARY MEDICATION SCH; +NURSING VERBAL MED ORDER ONE; -OXYC-57 PO; +OXYC7.5T65 PO
[2017-05-16 07:16] VITALS: BP 115/80; PULSE 90; TEMP 36.7; O2SAT 95; Ht 170.2 cm; Wt 73.0 kg
--- NOTE | 2017-05-16 08:50 | Discharge Instructions ---
Discharge Instructions Date of Service May 16, 2017. Admission Reason for Admission: Bladder Tumor Discharge Discharge Diagnosis / Problem: Bladder Cancer Discharge Goals Goal(s): Decrease discomfort, Improve function Activity Recommendations Activity Limitations: per Instructions/Follow-up section Lifting Limitations: gradually increase as tolerated Exercise/Sports Limitations: gradually increase as tolerated Shower/Bathe: no limitations . Instructions / Follow-Up Instructions / Follow-Up May have blood in urine. Will likely have discomfort or spasms. Call if fevers or chills. Medications as needed for discomfort. Current Hospital Diet Patient's current hospital diet: Discharge Diet Recommended Diet: Regular Diet Procedures Procedures Performed: TURBT, Mytomycin Pending Studies Studies pending at discharge: no Medical Emergencies . Who to Call and When: Medical Emergencies: If at any time you feel your situation is an emergency, please call 911 immediately. . Non-Emergent Contact Non-Emergency issues call your: Primary Care Provider, Urologist Call Non-Emergent contact if: you have a fever, temperature is above 101, temperature is above 101.5, your pain is not controlled, your pain is worsening . . "Provider Documentation" section prepared by Christ Cortez. .
--- NOTE | 2017-05-16 09:32 | [facility] Operative Report ---
Operative Report Operative Date May 16, 2017. Pre-Operative Diagnosis Bladder Cancer, High Grade Post-Operative Diagnosis TURBT, Large. Mytomycin Instillation, Narrow band imaging cystoscopy. 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 Here for resection. Risks and benefits discussed at length. Description of Procedure Patient was consented and brought back to the operating room. Patient was placed under anesthesia in the supine position and moved to the dorsal lithotomy position. Patient was prepped and draped in the regular sterile fashion. A time out was completed. A 30degree Cystoscope was placed into the bladder and the entire bladder was examined. The UO's were identified. The lesions on the posterior bladder were assessed as well as lesions on dome and left lateral wall. Narrow band imaging was turned on and the areas assessed. This helped better identify the lesion on the dome of the bladder. The scope was removed and a resection scope was placed. Resection of lesions commenced. The area was fulgurated. Deep resection tissue was sent with pathology. All bleeding was controlled. No further areas of concern were noted. The scope was removed with the bladder partially full. A 16 maldivian aguilar catheter was placed and mytomycin was instilled into the bladder. This was cap. The patient was cleaned, aroused from anesthesia, and transferred to the pacu in stable condition having tolerated the procedure well with no complications. I was present and participated in all aspects of the procedure. The patient will be monitored in the PACU until transferred. I attest to the content of the Intraoperative Record and any orders documented therein. Any exceptions are noted below.
[2017-05-16 10:28] VITALS: BP 173/83; PULSE 69; TEMP 36.5; O2SAT 97
--- NOTE | 2017-05-16 10:51 | Anesthesiology Progress Note ---
Anesthesia Post Op Note Date & Time May 16, 2017 at 10:51 Vital Signs Pain Intensity: 4 Vital Signs Past 12 Hours Date Time Temp Pulse Resp B/P (MAP) Pulse Ox O2 Delivery O2 Flow Rate FiO2 05/16/17 10:15 36.6 75 16 134/92 95 Room Air 05/16/17 10:05 83 16 145/98 96 Room Air 05/16/17 09:55 70 16 130/78 100 Oxymask 10 05/16/17 09:45 71 16 150/84 97 Oxymask 10 05/16/17 09:35 37.4 70 16 119/88 97 Oxymask 10 05/16/17 07:16 36.7 90 18 115/80 (92) 95 Notes Mental Status: alert / awake / arousable, participated in evaluation Pt Amnestic to Procedure: Yes Nausea / Vomiting: adequately controlled Pain: adequately controlled Airway Patency, RR, SpO2: stable & adequate BP & HR: stable & adequate Hydration State: stable & adequate Anesthetic Complications: no major complications apparent
[2017-05-16 10:58] VITALS: BP 170/92; PULSE 75; O2SAT 98
[2017-05-16 11:28] VITALS: BP 168/85; PULSE 72; TEMP 36.5; O2SAT 99
[2017-05-16 11:38] VITALS: BP 173/83; PULSE 69; TEMP 36.5; O2SAT 97
== END | disposition home or self-care (01) ==
LOC: C.ACU 06:56
PROVIDERS: ATTEND Urology
DX: C67.9 Malignant neoplasm of bladder, unspecified (principal); C67.1 Malignant neoplasm of dome of bladder; C67.2 Malignant neoplasm of lateral wall of bladder; M79.89 Other specified soft tissue disorders; E03.9 Hypothyroidism, unspecified; F01.50 Vascular dementia, unspecified severity, without behavioral disturbance, psychotic disturbance, mood disturbance, and anxiety; I87.2 Venous insufficiency (chronic) (peripheral); M85.80 Other specified disorders of bone density and structure, unspecified site; Z87.891 Personal history of nicotine dependence; Z85.3 Personal history of malignant neoplasm of breast; Z79.899 Other long term (current) drug therapy

== ENCOUNTER 2017-05-18 12:28 | Emergency (ER) | payer BC ==
[~2017-05-18] VITALS: Ht 170.2 cm; Wt 75.0 kg
[~2017-05-18 12:28] MED LIST changes: -ATROPINE SULFATE 0.1 MG/ML 5ML SYR IV PRN; -CIPROFLOXACIN / D5W 400 MG IV SCH; -DEXAMETHASONE SOD INJ 4 MG/ML VIAL ONE; -ESMOLOL HCL 10 MG/ML 10 ML VIAL ONE; -EpHEDrine SULFATE INJ 50 MG/ML AMP IV PRN; -FENTANYL CITRATE INJ 50 MCG/1 ML 2 ML VIAL IV PRN; -FENTANYL CITRATE INJ 50 MCG/1 ML 2 ML VIAL ONE; -HYDROmorphone INJ 1 MG/ML SYR IV PRN; -LABETALOL HCL IV 5 MG/ML 20ML IV PRN; -LIDOCAINE HCL 2% 2 ML VIAL (20MG/ML) ONE; -MEPERIDINE HCL 25 MG/ML CARP IV PRN; -MITOMYCIN FOR INJ 40 MG in SYRINGE 40 ML IR SCH; -NON-FORMULARY MEDICATION SCH; -NURSING VERBAL MED ORDER ONE; -ONDANSETRON INJ 2 MG/ML 2 ML VIAL IV PRN; -ONDANSETRON INJ 2 MG/ML 2 ML VIAL ONE; -OXYCODONE/ACETAMINOPHEN 7.5-325 TAB PO PRN; -PROPOFOL IV EMULSION 10 MG/ML 20 ML VIAL IV ONE
[2017-05-18 12:30] VITALS: Ht 170.2 cm; Wt 75.0 kg
--- NOTE | 2017-05-18 13:05 | EMERGENCY ROOM VISIT NOTE ---
History Report prepared by Russell: Alexandra Nuñez Under the Supervision of: Dr. Santiago Sotelo M.D. First contact with patient: 12:41 Chief Complaint: DIZZY Stated Complaint: DIZZINESS,FAINTING Nursing Triage Summary: Slight dizziness mid week, had TURB with chemo performed on , was feeling better, and then last night woke up in the middle of the night dizzy, fell and hit left side of head on door frame, denies LOC. Dizziness continues today. Hx of vertigo. History of Present Illness The patient is a 71 year old female who presents to the Emergency Room with complaints of dizziness beginning at 0300 this morning. She reports that at this time, she fainted and hit the side of her head on the door frame. She denies "losing consciousness completely." She denies any chest pain, blood in her urine, hematochezia, melena, SOB, or a cough. The patient denies any pain. She describes that the dizziness was intermittent and she felt very lightheaded. She does report that she recently had a surgical procedure done to remove part of her bladder due to bladder cancer. She also had a urinary catheter placed and had chemotherapy medications injected into her bladder. Source of History: patient Onset: 0300 this morning Position: other (global) Quality: other (lightheadedness ) Timing: intermittent Associated Symptoms: No cough, No chest pain, No SOB, No hematochezia, No urinary symptoms Note: Negative pain. Review of Systems See HPI for pertinent positives and negatives. A total of ten systems were reviewed and were otherwise negative. Past Medical & Surgical Medical Problems: (1) Acute diverticulitis (2) Breast cancer in situ (3) Diverticulitis large intestine Family History Hypertension Kidney disease Social History Smoking Status: Former Smoker Alcohol Use: none Drug Use: none Marital Status: Housing Status: lives with family Occupation Status: retired Current/Historical Medications Scheduled Ascorbic Acid (Vitamin C), 500 MG PO QAM Calcium Carbonate-Vitamin D (Calcium + D), 1 TAB PO BID Cephalexin Monohydrate (Keflex), 500 MG PO BID Levothyroxine Sodium (Synthroid), 88 MCG PO QAM Multivitamin (Multivitamin), 1 TAB PO DAILY Omalizumab (Xolair), 150 MG INJ [id number] Oxybutynin Chloride (Ditropan), 5 MG PO Q8 Phenazopyridine Hcl (Pyridium), 200 MG PO TID Probiotic Product (Probiotic), 1 TAB PO QAM Scheduled PRN Spironolactone (Aldactone), 50-100 MG PO QAM PRN for RN Allergies Coded Allergies: NO KNOWN DRUG ALLERGIES (Verified Allergy, Unknown, NONE, 05/18/17) Nickel (Verified Allergy, Unknown, CAME UP ON ALLERGY TEST, 05/18/17) Physical Exam Vital Signs Date Time Temp Pulse Resp B/P (MAP) Pulse Ox O2 Delivery O2 Flow Rate FiO2 05/18/17 16:09 36.6 86 18 144/82 95 05/18/17 14:46 86 18 144/82 95 Room Air 05/18/17 12:30 36.6 90 18 130/81 95 Room Air Physical Exam Physical Exam GENERAL: She is oriented to person, place, and time. She appears well- developed and well-nourished. She does not appear distressed. ____ HENT: Exam performed. Head: Normocephalic and atraumatic. Right Ear: External ear normal. No mastoid tenderness. Left Ear: External ear normal. No mastoid tenderness. Mouth/Throat: The oropharynx is clear and moist. No trismus in the jaw. No dental abscesses or uvula swelling. No oropharyngeal exudate or tonsillar abscesses. ____ EYES: Conjunctivae and EOM are normal. Pupils are equal, round, and reactive to light. Right eye exhibits no discharge. Left eye exhibits no discharge. No scleral icterus. ____ NECK: Normal range of motion. Neck supple. No JVD present. No spinous process tenderness present. No carotid bruit present. No rigidity. No tracheal deviation and normal range of motion present. No Brudzinski's sign and no Kernig 's sign noted. ____ CV: Normal rate, regular rhythm, normal heart sounds and intact distal pulses. There is no peripheral edema. Palpable radial pulses bue. ____ PULM/CHEST: Effort normal and breath sounds normal. No respiratory distress. No stridor. She has no wheezes. She has no rales. Chest Wall: She exhibits no tenderness. ____ ABD: The abdomen is soft. Bowel sounds are normal. She has no distension. No mass is present. There is no tenderness. There is no rebound, no guarding, no Haney's sign and no tenderness at McBurney's point. Rovsig negative MUSC/SKEL: No CT or L spine tenderness. 2+ pitting edema to the bilateral lower extremities. Pt states this is baseline for her. LYMPH: No cervical adenopathy. ____ NEURO: She is alert and oriented to person, place, and time. She has normal strength. No cranial nerve deficit or sensory deficit. Coordination and gait normal. GCS eye subscore is 4. GCS verbal subscore is 5. GCS motor subscore is 6. Cerebellar tests wnl. ____ SKIN: Skin is warm and dry. She is not diaphoretic. ____ PSYCH: She has a normal mood and affect. Her behavior is normal. Judgment and thought content normal. ____ Medical Decision & Procedures ER Provider Diagnostic Interpretation: Radiology results as stated below per my review and radiologist interpretation: HEAD WITHOUT CONTRAST (CT) CLINICAL HISTORY: 71 years-old Female with fall hit head + LOC. Acute head injury status post fall. TECHNIQUE: Multiple axial CT images of the head were obtained without contrast. A dose lowering technique was utilized adhering to the principles of ALARA. COMPARISON: CT cervical spine of same day, CT head 04/04/2013, brain MRI 04/27/2013. FINDINGS: No acute intracranial hemorrhage, midline shift, intracranial mass, hydrocephalus, territorial ischemia or abnormal extra-axial collection. Moderate brain atrophy. Senescent calcifications of the lentiform nuclei. Moderate ill-defined areas of low-attenuation within the periventricular and subcortical white matter suggest chronic microvascular ischemic changes. Cerebral vascular calcifications are seen at the level of the skull base. The calvarium is intact. The paranasal sinuses, mastoid air cells, and middle ear cavities are clear. Orbits and soft tissues are unremarkable. IMPRESSION: No acute intracranial abnormality or calvarial fracture. The above report was generated using voice recognition software. It may contain grammatical, syntax or spelling errors. Electronically signed by: Jose Birmingham M.D. 05/18/2017 2:29 PM Dictated Date/Time: 05/18/2017 2:27 PM (CHEST FOR PE) ANGIO WITH CT DOSE: 2336.40 mGy.cm HISTORY: 71 years-old Female acute chest trauma status post fall. Acute atypical chest pain with dizziness TECHNIQUE: Multiple CTA images of the chest were obtained after the intravenous administration of 93 ml Optiray 320. Coronal and sagittal MIPS were obtained from the axial data set and were submitted for review. All measurements were obtained according to NASCET criteria. A dose lowering technique was utilized adhering to the principles of ALARA. COMPARISON: CT abdomen and pelvis of same day, chest radiograph of same day. FINDINGS: CTA: Heart is within the upper limits of normal in size. There is no pericardial effusion. Thoracic aorta is normal in both course and caliber without aneurysm or dissection. Moderate atherosclerosis of the aorta. The imaged great vessels appear to be patent. The pulmonary arterial tree is opacified to level of the subsegmental branches and demonstrates no focal filling defects to suggest pulmonary thromboembolic disease. CT CHEST: No dominant thyroid nodule or pathologic adenopathy identified. There is no pneumothorax or pleural effusion. Mild subsegmental bibasilar atelectasis. Mild centrilobular emphysema of the imaged upper lung zones. No suspicious pulmonary nodules or masses identified. Central airways appear patent. No acute abnormality of the imaged upper abdomen. Surgical clips of the left breast are noted adjacent to a 1.6 x 0.8 cm lesion with increased attenuation. Degenerative changes are noted throughout the spine. No acute fracture identified. Sternum appears intact. Multilevel endplate spurring of the thoracic spine. IMPRESSION: 1. No acute intrathoracic abnormality identified, specifically no acute aortic pathology or evidence of pulmonary thromboembolic disease. 2. No lobar airspace consolidation or pleural effusion. 3. Surgical clips are seen adjacent to a 1.6 cm left breast lesion. Correlate with prior breast imaging. The above report was generated using voice recognition software. It may contain grammatical, syntax or spelling errors. Electronically signed by: Jose Birmingham M.D. 05/18/2017 2:46 PM Dictated Date/Time: 05/18/2017 2:40 PM CHEST ONE VIEW PORTABLE HISTORY: 71 years-old Female fall acute chest trauma status post fall COMPARISON: Chest radiograph 04/01/2017 TECHNIQUE: Portable AP view of the chest FINDINGS: Cardiomediastinal and hilar silhouettes are within normal limits. Atherosclerosis of the aorta. No pneumothorax, pleural effusion or overt pulmonary edema. Subsegmental left basilar opacities suggest atelectasis. Bones of the chest appear grossly intact. IMPRESSION: No acute process. The above report was generated using voice recognition software. It may contain grammatical, syntax or spelling errors. Electronically signed by: Jose Birmingham M.D. 05/18/2017 1:53 PM Dictated Date/Time: 05/18/2017 1:48 PM CERVICAL SPINE W/O CLINICAL HISTORY: 71 years-old Female with fall. Acute neck injury status post fall COMPARISON: CT head of same day TECHNIQUE: Multiple axial CT images of the cervical spine were obtained without contrast. A dose lowering technique was utilized adhering to the principles of ALARA. FINDINGS: Mastoid air cells and middle ear cavities are clear. There is no acute cervical spine fracture or subluxation identified. Imaged ribs also appear intact. The bones appear mildly demineralized. Moderate severe intervertebral disc space narrowing is seen at C5-C6, C6-C7 and T1-T2. Severe multilevel facet arthrosis is noted with fusion of the right C2-C3 facets. Large subcortical cyst involves the right C5 facet. Multilevel moderate to severe endplate spurring. 2.5 mm anterolisthesis C3 on C4 is likely secondary to long-standing facet disease. There is straightening of the normal cervical lordosis. MRI has greater sensitivity in assessing central canal and foraminal narrowing. No definite high-grade central canal stenosis. Multilevel foraminal narrowing is present, for example there is severe bilateral foraminal narrowing at C6-C7. Lung apices appear clear. Soft tissues are unremarkable. Thyroid appears mildly heterogeneous. Atherosclerosis of the carotid bulbs. IMPRESSION: 1. No acute fracture or subluxation. 2. Degenerative changes as above. The above report was generated using voice recognition software. It may contain grammatical, syntax or spelling errors. Electronically signed by: Jose Birmingham M.D. 05/18/2017 2:35 PM Dictated Date/Time: 05/18/2017 2:29 PM [address]OMEN AND PELVIS CT WITH IV CONTRAST HISTORY: Acute trauma status post syncope with fall. Patient reports recent transurethral resection of bladder tumor. fall syncope recnet surg 2 days ago TECHNIQUE: Multiaxial CT images of the abdomen and pelvis were performed following the use of intravenous contrast. A dose lowering technique was utilized adhering to the principles of ALARA. COMPARISON STUDY: CT abdomen and pelvis 11/15/2016. FINDINGS: No definite pneumatosis or pneumoperitoneum. Indeterminate low attenuating lesion of the hepatic dome measuring 3 mm suggest benign etiology such as a hepatic cyst. There is no intrahepatic biliary ductal dilation identified. There is suggestion of mild nonspecific gallbladder wall thickening without surrounding inflammatory stranding or cholelithiasis. Spleen, pancreas and adrenal glands are within normal limits. Kidneys are within normal limits. 4 mm low attenuating lesion of the superior pole left kidney suggests renal cyst however too small to characterize. Ureters are within normal limits. There is marked wall thickening of the urinary bladder, notably along the anterior and left lateral margins wall thickening with extensive perivesicular stranding. Air within the nondependent urinary bladder lumen is noted. Additionally, there are punctate foci of air outside the urinary bladder lumen noted within the retropubic space nicely seen on images 359 and 366 series 10. Uterus and adnexa appear age-appropriate. Extensive atherosclerosis of the aorta without definite aneurysm. No bulky adenopathy identified. No bowel obstruction or focal bowel wall thickening. Postsurgical changes from prior partial sigmoid colon resection. Mild colonic diverticulosis without diverticulitis. Normal appendix. Soft tissues are unremarkable. Degenerative changes noted about the hips and spine. Severe intervertebral disc space narrowing at all 2-L3. IMPRESSION: 1. Marked wall thickening of the urinary bladder, notably along the anterior and left lateral margins with associated perivesicular inflammatory stranding. Air is noted within the nondependent urinary bladder lumen and also outside of the urinary bladder lumen within the retropubic space. Findings are compatible with patient history of recent bladder surgery with urinary bladder wall injury. 2. No pneumoperitoneum or drainable fluid collection identified. 3. Postoperative changes of the sigmoid colon from partial resection. No bowel obstruction or focal bowel wall thickening. Electronically signed by: Jose Birmingham M.D. 05/18/2017 3:02 PM Dictated Date/Time: 05/18/2017 2:46 PM Laboratory Results 05/18/17 13:20 Red Blood Count 3.74, Mean Corpuscular Volume 102.4, Mean Corpuscular Hemoglobin 34.5, Mean Corpuscular Hemoglobin Concent 33.7, Mean Platelet Volume 8.9, Neutrophils (%) (Auto) 61.0, Lymphocytes (%) (Auto) 23.8, Monocytes (%) ( Auto) 10.5, Eosinophils (%) (Auto) 4.5, Basophils (%) (Auto) 0.2, Neutrophils # (Auto) 3.38, Lymphocytes # (Auto) 1.32, Monocytes # (Auto) 0.58, Eosinophils # ( Auto) 0.25, Basophils # (Auto) 0.01 05/18/17 13:20 Test 05/18/17 13:15 05/18/17 13:20 05/18/17 14:40 Influenza Type A Antigen Neg for Influ A (NEG) Influenza Type B Antigen Neg for Influ B (NEG) White Blood Count 5.54 K/uL (4.8-10.8) Red Blood Count 3.74 M/uL (4.2-5.4) Hemoglobin 12.9 g/dL (12.0-16.0) Hematocrit 38.3 % (37-47) Mean Corpuscular Volume 102.4 fL (80-100) Mean Corpuscular Hemoglobin 34.5 pg (25-34) Mean Corpuscular Hemoglobin Concent 33.7 g/dl (32-36) Platelet Count 167 K/uL (130-400) Mean Platelet Volume 8.9 fL (7.4-10.4) Neutrophils (%) (Auto) 61.0 % Lymphocytes (%) (Auto) 23.8 % Monocytes (%) (Auto) 10.5 % Eosinophils (%) (Auto) 4.5 % Basophils (%) (Auto) 0.2 % Neutrophils # (Auto) 3.38 K/uL (1.4-6.5) Lymphocytes # (Auto) 1.32 K/uL (1.2-3.4) Monocytes # (Auto) 0.58 K/uL (0.11-0.59) Eosinophils # (Auto) 0.25 K/uL (0-0.5) Basophils # (Auto) 0.01 K/uL (0-0.2) RDW Standard Deviation 50.0 fL (36.4-46.3) RDW Coefficient of Variation 13.4 % (11.5-14.5) Immature Granulocyte % (Auto) 0.0 % Immature Granulocyte # (Auto) 0.00 K/uL (0.00-0.02) Anion Gap 7.0 mmol/L (3-11) Est Creatinine Clear Calc Drug Dose 58.7 ml/min Estimated GFR () 71.7 Estimated GFR (Non- 61.8 BUN/Creatinine Ratio 21.9 (10-20) Lactic Acid Level 1.2 mmol/L (0.4-2.0) Calcium Level 8.7 mg/dl (8.5-10.1) Magnesium Level 1.9 mg/dl (1.8-2.4) Total Bilirubin 0.6 mg/dl (0.2-1) Aspartate Amino Transf (AST/SGOT) 15 U/L (15-37) Alanine Aminotransferase (ALT/SGPT) 19 U/L (12-78) Alkaline Phosphatase 64 U/L (45-117) Troponin I < 0.015 ng/ml (0-0.045) Pro-B-Type Natriuretic Peptide 110 pg/ml (0-900) Total Protein 6.6 gm/dl (6.4-8.2) Albumin 3.5 gm/dl (3.4-5.0) Globulin 3.1 gm/dl (2.5-4.0) Albumin/Globulin Ratio 1.1 (0.9-2) Lipase 71 U/L (73-393) Urine Color YELLOW Urine Appearance CLEAR (CLEAR) Urine pH 8.5 (4.5-7.5) Urine Specific [place] 1.006 (1.000-1.030) Urine Protein NEG (NEG) Urine Glucose (UA) NEG (NEG) Urine Ketones NEG (NEG) Urine Occult Blood 3+ (NEG) Urine Nitrite NEG (NEG) Urine Bilirubin NEG (NEG) Urine Urobilinogen NEG (NEG) Urine Leukocyte Esterase SMALL (NEG) Urine WBC (Auto) /hpf (0-5) Urine RBC (Auto) /hpf (0-4) Urine Hyaline Casts (Auto) /lpf (0-5) Urine Epithelial Cells (Auto) /lpf (0-5) Urine Bacteria (Auto) (NEG) Urine RBC >30 /hpf (0-4) Urine WBC 1-5 /hpf (0-5) Urine Epithelial Cells 0-5 /lpf (0-5) Urine Bacteria 1+ (NEG) Laboratory results reviewed by me ECG Per My Interpretation Indication: syncope Rate (beats per minute): 72 Rhythm: sinus rhythm Findings: PVC (occasional ), other (ID and QRS and QTC within normal limits, no ST elevation or depression) ED Course 1255: The patient was evaluated in room C7. A complete history and physical exam was performed. 1551: Vitals are stable. Labs and imaging within normal limits. Urine shows blood and 1+ bacteria, this is thought to be her recent catheterization and chemotherapy through urethral catheter. Reevaluated the patient and repeated physical exam within normal limits. Patient states she feels fine and would like to go home. I offered her a chance to be admitted for observation and syncope workup including cardiac echo and carotid ultrasound but she declined and stated she would rather follow up with an outpatient doctor. DISCHARGE - Plan of care discussed with patient and questions answered. The patient was given both verbal and printed discharge instructions. The patient verbalized understanding and ability to comply. The patient is to seek outpatient follow up as noted in the discharge instructions. The patient verbalized understanding and ability to comply. The patient is discharged in stable condition. The patient was instructed to return for worsening symptoms. Medical Decision Vitals are stable. Labs and imaging within normal limits. Urine shows blood and 1+ bacteria, this is thought to be her recent catheterization and chemotherapy through urethral catheter. Reevaluated the patient and repeated physical exam within normal limits. Patient states she feels fine and would like to go home. I offered her a chance to be admitted for observation and syncope workup including cardiac echo and carotid ultrasound but she declined and stated she would rather follow up with an outpatient doctor. DISCHARGE - Plan of care discussed with patient and questions answered. The patient was given both verbal and printed discharge instructions. The patient verbalized understanding and ability to comply. The patient is to seek outpatient follow up as noted in the discharge instructions. The patient verbalized understanding and ability to comply. The patient is discharged in stable condition. The patient was instructed to return for worsening symptoms. Medication Reconcilliation Current Medication List: was personally reviewed by me Blood Pressure Screening Patient's blood pressure: Normal blood pressure Blood pressure disposition: Did not require urgent referral Impression Primary Impression: Syncope Scribe Attestation The scribe's documentation has been prepared under my direction and personally reviewed by me in its entirety. I confirm that the note above accurately reflects all work, treatment, procedures, and medical decision making performed by me. The chart was completed utilizing [id number] voice recognition software. Grammatical errors, random word insertions, pronoun errors, and incomplete sentences are an occasional consequence of this system due to software limitations, ambient noise, and hardware issues. Any formal questions or concerns about the content, text, or information contained within the body of this dictation should be directly addressed to the physician for clarification. Departure Information Dispostion Home / Self-Care Referrals Zak Darnell M.D. (PCP) Forms HOME CARE DOCUMENTATION FORM, IMPORTANT VISIT INFORMATION Patient Instructions My [facility] Additional Instructions Return to the emergency department if you develop chest pain, difficulty breathing, blood in urine, blood in your stool, lose consciousness, have seizure , or severe headache.
[2017-05-18 13:30] LABS: BASO % 0.2 %; BASO ABS # 0.01 K/uL (0-0.2); EOS % 4.5 %; EOS ABS # 0.25 K/uL (0-0.5); HEMATOCRIT 38.3 % (37-47); HEMOGLOBIN 12.9 g/dL (12.0-16.0); LYMPH % 23.8 %; LYMPH ABS # 1.32 K/uL (1.2-3.4); MEAN CELL VOLUME 102.4 fL (80-100); MEAN CORPUSCULAR HEMOGLOBIN 34.5 pg (25-34); MEAN CORPUSCULAR HGB CONC 33.7 g/dl (32-36); MEAN PLATELET VOLUME 8.9 fL (7.4-10.4); MONO % 10.5 %; MONO ABS # 0.58 K/uL (0.11-0.59); NEUT ABS # 3.38 K/uL (1.4-6.5); PLATELET COUNT 167 K/uL (130-400); RED CELL DISTRIBUTION WIDTH CV 13.4 % (11.5-14.5); WHITE BLOOD COUNT 5.54 K/uL (4.8-10.8)
[2017-05-18] MEDS ORDERED: OPTIRAY 320 IV PRN (13:45)
[2017-05-18 13:47] LABS: ALBUMIN 3.5 gm/dl (3.4-5.0); ALT/SGPT 19 U/L (12-78); BLOOD UREA NITROGEN 20 mg/dl (7-18); CALCIUM 8.7 mg/dl (8.5-10.1); CARBON DIOXIDE 26 mmol/L (21-32); CREATININE 0.93 mg/dl (0.60-1.20); GLUCOSE 88 mg/dl (70-99); LIPASE 71 U/L (73-393); POTASSIUM 3.9 mmol/L (3.5-5.1); SODIUM 137 mmol/L (136-145)
[2017-05-18 13:53] LABS: ALKALINE PHOSPHATASE 64 U/L (45-117); AST/SGOT 15 U/L (15-37); TOTAL PROTEIN 6.6 gm/dl (6.4-8.2)
[2017-05-18 13:54] LABS: INFLUENZA B ANTIGEN Neg for Influ B (NEG)
--- NOTE | 2017-05-18 13:54 | DIAGNOSTIC IMAGING REPORT ---
CHEST ONE VIEW PORTABLE HISTORY: 71 years-old Female fall acute chest trauma status post fall COMPARISON: Chest radiograph 04/01/2017 TECHNIQUE: Portable AP view of the chest FINDINGS: Cardiomediastinal and hilar silhouettes are within normal limits. Atherosclerosis of the aorta. No pneumothorax, pleural effusion or overt pulmonary edema. Subsegmental left basilar opacities suggest atelectasis. Bones of the chest appear grossly intact. IMPRESSION: No acute process. The above report was generated using voice recognition software. It may contain grammatical, syntax or spelling errors. Electronically signed by: Jose Birmingham M.D. 05/18/2017 1:53 PM Dictated Date/Time: 05/18/2017 1:48 PM
--- NOTE | 2017-05-18 14:31 | DIAGNOSTIC IMAGING REPORT ---
HEAD WITHOUT CONTRAST (CT) CLINICAL HISTORY: 71 years-old Female with fall hit head + LOC. Acute head injury status post fall. TECHNIQUE: Multiple axial CT images of the head were obtained without contrast. A dose lowering technique was utilized adhering to the principles of ALARA. COMPARISON: CT cervical spine of same day, CT head 04/04/2013, brain MRI 04/27/2013. FINDINGS: No acute intracranial hemorrhage, midline shift, intracranial mass, hydrocephalus, territorial ischemia or abnormal extra-axial collection. Moderate brain atrophy. Senescent calcifications of the lentiform nuclei. Moderate ill-defined areas of low-attenuation within the periventricular and subcortical white matter suggest chronic microvascular ischemic changes. Cerebral vascular calcifications are seen at the level of the skull base. The calvarium is intact. The paranasal sinuses, mastoid air cells, and middle ear cavities are clear. Orbits and soft tissues are unremarkable. IMPRESSION: No acute intracranial abnormality or calvarial fracture. The above report was generated using voice recognition software. It may contain grammatical, syntax or spelling errors. Electronically signed by: Jose Birmingham M.D. 05/18/2017 2:29 PM Dictated Date/Time: 05/18/2017 2:27 PM
--- NOTE | 2017-05-18 14:36 | DIAGNOSTIC IMAGING REPORT ---
CERVICAL SPINE W/O CLINICAL HISTORY: 71 years-old Female with fall. Acute neck injury status post fall COMPARISON: CT head of same day TECHNIQUE: Multiple axial CT images of the cervical spine were obtained without contrast. A dose lowering technique was utilized adhering to the principles of ALARA. FINDINGS: Mastoid air cells and middle ear cavities are clear. There is no acute cervical spine fracture or subluxation identified. Imaged ribs also appear intact. The bones appear mildly demineralized. Moderate severe intervertebral disc space narrowing is seen at C5-C6, C6-C7 and T1-T2. Severe multilevel facet arthrosis is noted with fusion of the right C2-C3 facets. Large subcortical cyst involves the right C5 facet. Multilevel moderate to severe endplate spurring. 2.5 mm anterolisthesis C3 on C4 is likely secondary to long-standing facet disease. There is straightening of the normal cervical lordosis. MRI has greater sensitivity in assessing central canal and foraminal narrowing. No definite high-grade central canal stenosis. Multilevel foraminal narrowing is present, for example there is severe bilateral foraminal narrowing at C6-C7. Lung apices appear clear. Soft tissues are unremarkable. Thyroid appears mildly heterogeneous. Atherosclerosis of the carotid bulbs. IMPRESSION: 1. No acute fracture or subluxation. 2. Degenerative changes as above. The above report was generated using voice recognition software. It may contain grammatical, syntax or spelling errors. Electronically signed by: Jose Birmingham M.D. 05/18/2017 2:35 PM Dictated Date/Time: 05/18/2017 2:29 PM
--- NOTE | 2017-05-18 14:47 | DIAGNOSTIC IMAGING REPORT ---
(CHEST FOR PE) ANGIO WITH CT DOSE: 2336.40 mGy.cm HISTORY: 71 years-old Female acute chest trauma status post fall. Acute atypical chest pain with dizziness TECHNIQUE: Multiple CTA images of the chest were obtained after the intravenous administration of 93 ml Optiray 320. Coronal and sagittal MIPS were obtained from the axial data set and were submitted for review. All measurements were obtained according to NASCET criteria. A dose lowering technique was utilized adhering to the principles of ALARA. COMPARISON: CT abdomen and pelvis of same day, chest radiograph of same day. FINDINGS: CTA: Heart is within the upper limits of normal in size. There is no pericardial effusion. Thoracic aorta is normal in both course and caliber without aneurysm or dissection. Moderate atherosclerosis of the aorta. The imaged great vessels appear to be patent. The pulmonary arterial tree is opacified to level of the subsegmental branches and demonstrates no focal filling defects to suggest pulmonary thromboembolic disease. CT CHEST: No dominant thyroid nodule or pathologic adenopathy identified. There is no pneumothorax or pleural effusion. Mild subsegmental bibasilar atelectasis. Mild centrilobular emphysema of the imaged upper lung zones. No suspicious pulmonary nodules or masses identified. Central airways appear patent. No acute abnormality of the imaged upper abdomen. Surgical clips of the left breast are noted adjacent to a 1.6 x 0.8 cm lesion with increased attenuation. Degenerative changes are noted throughout the spine. No acute fracture identified. Sternum appears intact. Multilevel endplate spurring of the thoracic spine. IMPRESSION: 1. No acute intrathoracic abnormality identified, specifically no acute aortic pathology or evidence of pulmonary thromboembolic disease. 2. No lobar airspace consolidation or pleural effusion. 3. Surgical clips are seen adjacent to a 1.6 cm left breast lesion. Correlate with prior breast imaging. The above report was generated using voice recognition software. It may contain grammatical, syntax or spelling errors. Electronically signed by: Jose Birmingham M.D. 05/18/2017 2:46 PM Dictated Date/Time: 05/18/2017 2:40 PM
--- NOTE | 2017-05-18 15:03 | DIAGNOSTIC IMAGING REPORT ---
ABDOMEN AND PELVIS CT WITH IV CONTRAST HISTORY: Acute trauma status post syncope with fall. Patient reports recent transurethral resection of bladder tumor. fall syncope recnet surg 2 days ago TECHNIQUE: Multiaxial CT images of the abdomen and pelvis were performed following the use of intravenous contrast. A dose lowering technique was utilized adhering to the principles of ALARA. COMPARISON STUDY: CT abdomen and pelvis 11/15/2016. FINDINGS: No definite pneumatosis or pneumoperitoneum. Indeterminate low attenuating lesion of the hepatic dome measuring 3 mm suggest benign etiology such as a hepatic cyst. There is no intrahepatic biliary ductal dilation identified. There is suggestion of mild nonspecific gallbladder wall thickening without surrounding inflammatory stranding or cholelithiasis. Spleen, pancreas and adrenal glands are within normal limits. Kidneys are within normal limits. 4 mm low attenuating lesion of the superior pole left kidney suggests renal cyst however too small to characterize. Ureters are within normal limits. There is marked wall thickening of the urinary bladder, notably along the anterior and left lateral margins wall thickening with extensive perivesicular stranding. Air within the nondependent urinary bladder lumen is noted. Additionally, there are punctate foci of air outside the urinary bladder lumen noted within the retropubic space nicely seen on images 359 and 366 series 10. Uterus and adnexa appear age-appropriate. Extensive atherosclerosis of the aorta without definite aneurysm. No bulky adenopathy identified. No bowel obstruction or focal bowel wall thickening. Postsurgical changes from prior partial sigmoid colon resection. Mild colonic diverticulosis without diverticulitis. Normal appendix. Soft tissues are unremarkable. Degenerative changes noted about the hips and spine. Severe intervertebral disc space narrowing at all 2-L3. IMPRESSION: 1. Marked wall thickening of the urinary bladder, notably along the anterior and left lateral margins with associated perivesicular inflammatory stranding. Air is noted within the nondependent urinary bladder lumen and also outside of the urinary bladder lumen within the retropubic space. Findings are compatible with patient history of recent bladder surgery with urinary bladder wall injury. 2. No pneumoperitoneum or drainable fluid collection identified. 3. Postoperative changes of the sigmoid colon from partial resection. No bowel obstruction or focal bowel wall thickening. Electronically signed by: Jose Birmingham M.D. 05/18/2017 3:02 PM Dictated Date/Time: 05/18/2017 2:46 PM
[2017-05-18 16:09] VITALS: BP 144/82; PULSE 86; TEMP 36.6; O2SAT 95
== END 2017-05-18 16:00 | disposition home or self-care (01) ==
LOC: C.EDB 12:28 → C.EDC 16:00
DX: R55 Syncope and collapse (principal); C67.9 Malignant neoplasm of bladder, unspecified; Z90.6 Acquired absence of other parts of urinary tract; Z85.3 Personal history of malignant neoplasm of breast; Z87.891 Personal history of nicotine dependence; Z91.048 Other nonmedicinal substance allergy status; Z82.49 Family history of ischemic heart disease and other diseases of the circulatory system; Z84.1 Family history of disorders of kidney and ureter

== ENCOUNTER → 2017-07-29 | Outpatient (CLI) | payer BC ==
[~2017-07-29] MED LIST changes: -DTR/5 PO; -OXYC7.5T65 PO; -PHEN-775 PO
--- NOTE | 2017-07-30 13:16 | MAMMOGRAPHY REPORT ---
BILATERAL DIGITAL SCREENING MAMMOGRAM TOMOSYNTHESIS WITH CAD: 07/29/2017 CLINICAL HISTORY: Asymptomatic. Personal history of breast cancer. TECHNIQUE: Breast tomosynthesis in addition to standard 2D mammography was performed. Current study was also evaluated with a Computer Aided Detection (CAD) system. COMPARISON: Comparison is made to exams dated: 07/25/2016 mammogram, 07/25/2015 mammogram, 07/21/2014 m ammogram, 07/20/2013 mammogram, 07/18/2012 mammogram, and 07/16/2011 mammogram - [facility]. BREAST COMPOSITION: There are scattered areas of fibroglandular density in both breasts. FINDINGS: A linear scar marker overlies the lateral left breast. There is expected architectural dis tortion and surgical clips in the 3:00 posterior left breast, at the site of prior lumpectomy. There are benign-appearing rodlike and coarse calcifications in the left breast. A stable intramammary ly mph node in the lateral right breast. No suspicious mass, architectural distortion or cluster of ajay rocalcifications is seen. IMPRESSION: ACR BI-RADS CATEGORY 1: NEGATIVE There is no mammographic evidence of malignancy. A 1 year screening mammogram is recommended. The pa tient will receive written notification of the results. Approximately 10% of breast cancers are not detected with mammography. A negative mammographic report should not delay biopsy if a clinically suggestive mass is present. Kelsi Newman M.D. ay/:07/29/2017 15:20:56 Infection Control Nurse: Michelle DIAZ(Antonella)(M), [facility] letter sent: Normal 1/2 BI-RADS Code: ACR BI-RADS Category 1: Negative
== END | disposition home or self-care (01) ==
LOC: C.MAMM 13:22
PROVIDERS: ATTEND Obstetrics & Gynecology
DX: Z12.31 Encounter for screening mammogram for malignant neoplasm of breast (principal); Z85.3 Personal history of malignant neoplasm of breast

== ENCOUNTER → 2017-10-07 | Day surgery (SDC) | payer BC ==
[2017-09-23 09:50] VITALS: Ht 170.2 cm; Wt 75.0 kg
[~2017-10-07] VITALS: Ht 170.2 cm; Wt 75.0 kg
[~2017-10-07] MED LIST changes: +BELLADONNA/OPIUM SUPP 60 MG SUPP PR ONE; -CEPH500C2 PO; +CIPR1TAB10 PO; +CIPROFLOXACIN / D5W 400 MG IV SCH; +DTR/5 PO; +EpHEDrine SULFATE 50MG/5ML SYR ONE; +FENTANYL CITRATE INJ 50 MCG/1 ML 2 ML VIAL IV ONE; +FENTANYL CITRATE INJ 50 MCG/1 ML 2 ML VIAL ONE; +LACTATED RINGER'S 1000ML 1,000 ML IV SCH; +LIDOCAINE HCL 2% 2 ML VIAL (20MG/ML) ONE; +MIDAZOLAM HCL 1 MG/ML 2ML VIAL ONE; +MITOMYCIN FOR INJ 40 MG in SYRINGE 40 ML INSTIL SCH; +NURSING VERBAL MED ORDER ONE; +ONDANSETRON INJ 2 MG/ML 2 ML VIAL ONE; +OXYBUTYNIN CHLORIDE 5 MG TAB PO ONE; +OXYC7.5T65 PO; +OXYCODONE/ACETAMINOPHEN 7.5-325 TAB PO PRN; +PHEN-775 PO; +PHENYLEPHRINE 100MCG/ML 5ML SYR ONE; +PROPOFOL IV EMULSION 10 MG/ML 20 ML VIAL ONE; +TRAM-10 PO
--- NOTE | 2017-10-07 10:07 | Discharge Instructions ---
Discharge Instructions Date of Service Oct 07, 2017. Admission Reason for Admission: Bladder Cancer Discharge Discharge Diagnosis / Problem: Bladder Cancer Discharge Goals Goal(s): Decrease discomfort, Improve function, Increase independence Activity Recommendations Activity Limitations: resume your previous activity Lifting Limitations: gradually increase as tolerated Exercise/Sports Limitations: gradually increase as tolerated . Instructions / Follow-Up Instructions / Follow-Up May have blood in urine. May have pelvic discomfort. Call if any fevers or chills. Current Hospital Diet Patient's current hospital diet: Discharge Diet Recommended Diet: Regular Diet Procedures Procedures Performed: TURBT, Medium with instillation of mitomycin Pending Studies Studies pending at discharge: no Medical Emergencies . Who to Call and When: Medical Emergencies: If at any time you feel your situation is an emergency, please call 911 immediately. . Non-Emergent Contact Non-Emergency issues call your: Primary Care Provider, Urologist Call Non-Emergent contact if: you have a fever, temperature is above 101, temperature is above 101.5, your pain is not controlled, your pain is worsening , your pain is unusual for you . . "Provider Documentation" section prepared by Christ Cortez. .
[2017-10-07 10:08] VITALS: BP 135/86; PULSE 79; TEMP 36.8; O2SAT 79
--- NOTE | 2017-10-07 12:32 | [facility] Operative Report ---
Operative Report Operative Date Oct 07, 2017. Pre-Operative Diagnosis Bladder Cancer, High Grade Post-Operative Diagnosis Same Procedure(s) Performed Cystoscopy with narrow band imaging and TURBT, Medium with instillation of mitomycin Surgeon Cortez Estimated Blood Loss Minimal Findings Multiple small lesions throughout bladder flat and velvet in appearance. Specimens 1. Resection posterior left bladder 2. Resection dome of bladder. 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 Risks and benefits discussed at length. Description of Procedure Patient was consented and brought back to the operating room. Patient was placed under anesthesia in the supine position and moved to the dorsal lithotomy position. Patient was prepped and draped in the regular sterile fashion. A time out was completed. A 30degree Cystoscope was placed into the bladder and the entire bladder was examined. The UO's were identified. The areas of concern were assessed and noted. Narrow band imaging was used to better visualize the areas. The scope was removed and replaced with a resection scope with a fine bipolar loop. The lesions were fully resected and sent for analysis. The areas were then fulgurated using the loop. In total, approx 4.6 cm of area was resected and fulgurated. The bladder was inspected a final time. The area was found to be clear of bleeding or other masses. The scope was removed. A 18 Fr catheter was placed and the bladder was emptied. Mitomycin 40mg was instilled into the bladder under gravity with the bag and catheter clamped. The patient was cleaned, aroused from anesthesia, and transferred to the pacu in stable condition having tolerated the procedure well with no complications. The mitomycin instillation will be held and then disposed of with the catheter per protocol. I was present and participated in all aspects of the procedure. The patient will be monitored in the PACU until transferred. I attest to the content of the Intraoperative Record and any orders documented therein. Any exceptions are noted below.
[2017-10-07 12:43] VITALS: BP 144/80; PULSE 69; TEMP 36.5; O2SAT 96
--- NOTE | 2017-10-07 13:07 | Anesthesiology Progress Note ---
Anesthesia Post Op Note Date & Time Oct 07, 2017 at 13:07 Vital Signs Pain Intensity: 7.0 Vital Signs Past 12 Hours Date Time Temp Pulse Resp B/P (MAP) Pulse Ox O2 Delivery O2 Flow Rate FiO2 10/07/17 10:08 36.8 79 16 135/86 (102) 79 Room Air Notes Mental Status: alert / awake / arousable, participated in evaluation Pt Amnestic to Procedure: Yes Nausea / Vomiting: adequately controlled Pain: adequately controlled Airway Patency, RR, SpO2: stable & adequate BP & HR: stable & adequate Hydration State: stable & adequate Anesthetic Complications: no major complications apparent
[2017-10-07 13:13] VITALS: BP 165/77; PULSE 63; TEMP 36.5; O2SAT 99
[2017-10-07 13:43] VITALS: BP 175/109; PULSE 70; TEMP 36.5; O2SAT 100
[2017-10-07 14:13] VITALS: BP 159/87; PULSE 70; TEMP 36.7; O2SAT 98
== END | disposition home or self-care (01) ==
LOC: C.ACU 09:40
PROVIDERS: ATTEND Urology
DX: C67.9 Malignant neoplasm of bladder, unspecified (principal); E03.9 Hypothyroidism, unspecified; I87.2 Venous insufficiency (chronic) (peripheral); Z87.01 Personal history of pneumonia (recurrent); Z96.659 Presence of unspecified artificial knee joint; Z87.440 Personal history of urinary (tract) infections

== ENCOUNTER 2024-09-07 19:06 | Inpatient (IN) ==
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
[2024-09-07 19:40] LABS: Hematocrit (blood only) 42.6 % (37.0-47.0); Hemoglobin 14.2 g/dl (12.0-16.0); Immature Granulocytes # (auto) 0.01 K/uL (0.01-0.20); Immature Granulocytes % (auto) 0.2 %; Mean Corpuscular Hemoglobin 36.5 pg (25.0-34.0); Mean Corpuscular Volume 109.5 fL (80.0-100.0); Platelet Count 186 K/uL (130-400); RDW Standard Deviation 49.9 fL (36.4-46.3); Red Blood Count 3.89 M/uL (4.20-5.40); White Blood Count 5.83 K/ul (4.8-10.8)
[2024-09-07 19:40] LABS: Appearance Urine Clear (Clear); Glucose Urine UA Negative (Negative)
[2024-09-07 19:56] LABS: Alanine Aminotransferase 10.0 U/L (7-52); Albumin Globulin Ratio 1.4 (0.9-2); Alkaline Phosphatase 77.0 U/L (34-104); Anion Gap 8.0 (3-11); Bilirubin,Total 0.5 mg/dl (0.2-1.0); Blood Urea Nitrogen 11.0 mg/dl (6-23); Calcium 9.3 mg/dl (8.6-10.3); Carbon Dioxide 28.0 mmol/L (21-32); Chloride 103.0 mmol/L (98-107); Creatinine Clr Calc Pharmacy 69.6 ml/min; Globulin 2.9 gm/dl (2.5-4.0); Glucose 84.0 mg/dl (70-99(Fasting)); Magnesium 1.8 mg/dl (1.7-2.4); Potassium 3.9 mmol/L (3.5-5.1); Sodium 139.0 mmol/L (136-145); Total Protein 7.1 gm/dl (6.0-8.3)
--- NOTE | 2024-09-07 19:57 | CT Scan Report ---
Clinical History: Confusion Technique: Axial computed tomography images were obtained of the brain without intravenous contrast. Comparison is made to the MRI dated 07/17/2023 Findings: There is cerebral atrophy, within expected limits for the patient's age. Areas of decreased attenuation are seen within the periventricular white matter, likely representing chronic small vessel ischemic disease. There is no definite sign of acute or old infarction. No intracranial hemorrhage is evident. No definite mass lesion is seen on this noncontrast examination. There is no midline shift or other form of herniation. No hydrocephalus is seen. No fracture is identified. The orbits and the visualized paranasal sinuses appear unremarkable. The mastoid air cells appear clear. Impression: 1. Cerebral atrophy and chronic small vessel ischemic disease 2. Otherwise unremarkable noncontrast CT of the brain Electronically signed by Francis Noriega 09-07-2024 7:56 PM
[2024-09-07 20:05] LABS: INR 0.9 (0.9-1.1); Prothrombin Time 10.2 Seconds (9.0-12.0)
[2024-09-07 20:13] LABS: Thyroid Stimulating Hormone 5.201 uIu/ml (0.300-4.500)
--- NOTE | 2024-09-07 22:12 | XRay Report ---
Exam(s): XR CXR 1 VIEW EXAM: XR Chest, 1 View CLINICAL HISTORY: confusion. TECHNIQUE: Frontal view of the chest. COMPARISON: Chest two views dated 01/16/2024 FINDINGS: Lungs: Focal asymmetric ovoid opacity in the left apex, new from the previous examination, estimated at 3.1 cm transverse diameter. Otherwise, accounting for overlying rib artifact, no other definite focal airspace consolidation. The pulmonary vasculature is unremarkable. Pleural space: Unremarkable. No pneumothorax. No large pleural effusion. Heart: Unremarkable. No cardiomegaly. Mediastinum: The mediastinal contours are stable without significant abnormality. Similar atherosclerotic calcification of the aortic arch. The trachea is midline. Bones/joints: Unremarkable. No acute fracture. IMPRESSION: Focal asymmetric ovoid opacity in the left apex, new from the previous examination, estimated at 3.1 cm transverse diameter. This may represent a new parenchymal mass or underlying infection. This area may be further assessed with cross-sectional imaging, as clinically indicated. Electronically signed by: Kevin Phelan MD 09/07/24 22:10 PM
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
[2024-09-07 23:48] LABS: Creatine Kinase 37.0 U/L (26-192)
[2024-09-08] MEDS ORDERED: Ativan PO Alcohol Withdrawal--Active Protocol PO PRN (01:03)
[2024-09-08] MEDS ORDERED: LORazepam 1 MG TAB PO PRN ×3 (01:03)
--- NOTE | 2024-09-08 04:45 | Ultrasound Report ---
EXAM: US venous doppler LE RT CLINICAL HISTORY: span style="box-sizing: border-box; margin: 0px; paddinpx;"strong;/strongRight/span;leg swelling. R/o DVT. TECHNIQUE: Ultrasound examination of right lower extremity veins was performed in real time and duplex. One or more of the following were performed- spectral analysis, resistive index, waveform analysis, and pulsed Doppler. COMPARISON: 02/11/2020 ultrasound. FINDINGS: Normal phasic, non-pulsatile and spontaneous flow is noted in right common femoral, superficial femoral, popliteal, anetrior and posterior tibial and peroneal veins. Visualized veins of right lower extremity demonstrate normal compressibility. No sonographic evidence of acute deep vein thrombosis (DVT) is detected in the visualized veins of lower extremity. Compression and Augmentation: All evaluated veins compress fully with applied transducer pressure. Augmentation of venous flow is noted with distal compression. Additional Findings: No evidence of intraluminal thrombus. Soft tissue edema is identified in right calf IMPRESSION: 1. No sonographic evidence of acute DVT was detected at the time of examination. 2. Soft tissue edema is identified in the right calf, greater in current examination 3. No other significant interval changes seen Disclaimer: DVT could be missed early in the disease when clot burden is minimal. For patients with moderate and high pretest probability of DVT and negative ultrasound, the [place] clinical guidelines recommend testing with a D-dimer assay or repeat ultrasound in 5-7 days. If symptoms worsen, the Society of radiologists in ultrasound recommends repeating ultrasound even earlier. Electronically signed by Diaz Julien 09-08-2024 04:45 AM
[2024-09-08] MEDS: LEVOTHYROXINE SODIUM 50 MCG TABLET PO SCH (05:42)
[2024-09-08] MEDS ORDERED: LEVOTHYROXINE SODIUM 100 MCG TABLET PO SCH (06:30)
[2024-09-08 06:59] LABS: Hematocrit (blood only) 40.0 % (37.0-47.0); Hemoglobin 13.7 g/dl (12.0-16.0); Immature Granulocytes # (auto) 0.01 K/uL (0.01-0.20); Immature Granulocytes % (auto) 0.2 %; Mean Corpuscular Hemoglobin 37.1 pg (25.0-34.0); Mean Corpuscular Volume 108.4 fL (80.0-100.0); Platelet Count 174 K/uL (130-400); RDW Standard Deviation 47.5 fL (36.4-46.3); Red Blood Count 3.69 M/uL (4.20-5.40); White Blood Count 5.57 K/ul (4.8-10.8)
[2024-09-08 07:16] LABS: Alanine Aminotransferase 9.0 U/L (7-52); Albumin Globulin Ratio 1.7 (0.9-2); Alkaline Phosphatase 63.0 U/L (34-104); Anion Gap 8.0 (3-11); Bilirubin,Total 0.6 mg/dl (0.2-1.0); Blood Urea Nitrogen 9.0 mg/dl (6-23); Calcium 8.9 mg/dl (8.6-10.3); Carbon Dioxide 30.0 mmol/L (21-32); Chloride 103.0 mmol/L (98-107); Creatinine Clr Calc Pharmacy 67.3 ml/min; Globulin 2.3 gm/dl (2.5-4.0); Glucose 89.0 mg/dl (70-99(Fasting)); Potassium 4.0 mmol/L (3.5-5.1); Sodium 141.0 mmol/L (136-145); Total Protein 6.3 gm/dl (6.0-8.3)
[2024-09-08] MEDS: ENOXAPARIN INJ 40 MG/0.4 ML SYR SQ SCH (08:12)
[2024-09-08] MEDS: THIAMINE HCL 100 MG TAB PO SCH (08:12)
[2024-09-08] MEDS: OPTIRAY 320 100ml IV ONE (09:08)
--- NOTE | 2024-09-08 09:59 | CT Scan Report ---
CHEST CT WITH CONTRAST CT DOSE: 592.16 mGy.cm HISTORY: 3.1 cm left apical asymmetric mass lesion TECHNIQUE: Multiaxial CT images of the chest were performed following the IV administration of 94 cc of Optiray. A dose lowering technique was utilized adhering to the principles of ALARA. COMPARISON: Chest x-ray 09/07/2024, CT cervical spine 04/26/2023, CTA chest 05/18/2017 FINDINGS: Unremarkable thyroid. No adenopathy. Heart is normal in size without pericardial effusion. Mild coronary artery calcifications. Atherosclerosis of the aorta without aneurysm. No pulmonary embo li. There is no pneumothorax, pleural effusion, airspace consolidation or airspace consolidation. Mil d pulmonary emphysema. Mild bronchial wall thickening with mucus ordering. There are several subpleur al solid nodules within the upper lung zones measuring up to 3 mm, most of which are stable from 2018 compatible with benign etiology. No suspicious pulmonary nodules or masses. No suspicious lesion of the left lung apex. No acute upper abdominal abnormality. Contracted gallbladder with wall thickening. Hepatic steatosis. Colonic diverticulosis. Degenerative changes of the spine without acute fracture. IMPRESSION: 1. Emphysema with bronchial wall thickening and mucus plugging. 2. No abnormality or lesion of the left lung apex to correlate with the radiographic finding from yes terday's chest x-ray, therefore this was secondary to summation density. 3. Chronic findings as above. ACT 112: Negative or not required by law. Electronically signed by: Krzysztof [place] M.D. 09/08/2024 9:57 AM
--- NOTE | 2024-09-08 15:05 | Electrocardiogram Report ---
Test Reason : Blood Pressure : */* mmHG Vent. Rate : 82 BPM Atrial Rate : 82 BPM P-R Int : 206 ms QRS Dur : 90 ms QT Int : 382 ms P-R-T Axes : 91 80 63 degrees QTcB Int : 446 ms Normal sinus rhythm Normal ECG When compared with ECG of 13-Feb-2019 09:34, T wave amplitude has decreased in Anterior leads Confirmed by Zak Rudolph ([id number]) on 09/08/2024 3:04:57 PM Referred By: REFERRED SELF Confirmed By: Zak Rudolph
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
[2024-09-08] MEDS: MELATONIN 3 MG TAB PO SCH (20:38)
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
[2024-09-10] MEDS: OLANZAPINE 2.5 MG TAB PO SCH (16:03)
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
[2024-09-11] MEDS: ACETAMINOPHEN 325 MG TAB PO PRN (13:11)
[2024-09-11] MEDS: OLANZAPINE 2.5 MG TAB PO PRN (16:29)
[2024-09-12] MEDS ORDERED: PHA DELIRIUM CONSULT PRN (00:52)
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
[2024-09-13] MEDS ORDERED: PHA DELIRIUM CONSULT PRN ×2 (01:09→22:45)
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
[2024-09-15 15:59] VITALS: BP 128/82; PULSE 88; RESP 16; TEMP 98.2; O2SAT 94
== END 2024-09-15 16:57 | disposition home or self-care (01) | DRG 897 ==
LOC: ED 19:06 → 2N 23:28 → SUATTDRO 23:28 → 2N 09-08 00:20